=== PATIENT | female | born 2000 | race Caucasian/White ===

== ENCOUNTER 2021-11-16 10:21 | Outpatient (REF) | payer OTHER, SELFPAY ==
[2021-11-16 11:17] LABS: MANUAL DIFF FLAG NO
[2021-11-16 11:23] LABS: Basophils Percent Auto 0.8 % (0-2); Eosinophils Absolute Auto 0.2 X10*3/uL (0.0-0.4); Eosinophils Percent Auto 2.9 % (0-4); Hematocrit 35.1 % (37.0-47.0); Hemoglobin 11.6 g/dl (12.0-16.0); Imm Gran Abs Auto 0.02 X10*3/uL (0.00-0.03); Imm Gran Pct Auto 0.4 % (0.0-0.4); Lymphocytes Absolute Auto 1.6 X10*3/uL (1.2-4.9); Lymphocytes Percent Auto 31.4 % (20-40); Mean Corpuscular Volume 93.9 fL (80.0-98.0); Mean Platelet Volume 9.8 fL (9.4-12.3); Monocytes Absolute Auto 0.3 X10*3/uL (0.1-1.2); Monocytes Percent Auto 6.3 % (2-11); Neutrophils Percent Auto 58.2 % (45-73); Platelet Count 176 X10*3/uL (160-400); Red Blood Count 3.74 X10*6/uL (4.20-5.50); Red Cell Distribution Width 12.8 % (11.0-16.0); White Blood Count 5.1 X10*3/uL (4.8-10.8)
[2021-11-16 11:51] LABS: Alanine Aminotransferase 7 U/L (0-31); Alkaline Phosphatase 46 U/L (39-117); Anion Gap 10 (12-20); Aspartate Amino Transferase 10 U/L (5-31); Bilirubin Total 0.2 mg/dL (0.0-1.0); Blood Urea Nitrogen 11 mg/dL (9-16); Calcium 8.9 mg/dL (8.4-10.2); Carbon Dioxide 26 mmol/L (22-29); Chloride 106 mmol/L (96-108); Cholesterol 112 mg/dL; Estimated Glomerular Filt Rate > 60; Glucose Fasting 79 mg/dL (60-99); HDL Cholesterol 41 mg/dL; LDL Cholesterol Calculated 61 mg/dl; Sodium 138 mmol/L (135-145); Total Protein 6.7 g/dL (6.5-8.0); Triglycerides 52 mg/dL
[2021-11-16 12:06] LABS: HBS Num1 0.19 mIU/mL (0-7.99); ~Hepatitis B Surface Antibody NONREACTIVE (Nonreactive)
[2021-11-16 12:13] LABS: TSH reflex Free T4 13.41 uIU/mL (0.32-4.0)
[2021-11-16 12:56] LABS: Free T4 (Free Thyroxine) 0.89 ng/dL (0.71-1.85)
[2021-11-18 05:22] LABS: Rubella IgG Antibody 1.77 Index
[2021-11-18 17:51] LABS: TS Negative Control Passed; TS Panel A 0; TS Panel B 0; TS Positive Control Passed; TSpotTB Negative (Negative)
[2021-11-22 15:46] LABS: Vitamin D 25-OH, D2 <4 ng/mL; Vitamin D 25-OH, D3 25 ng/mL; Vitamin D 25-OH, Total 25 ng/mL (30-100)
== END 2021-11-16 10:22 | disposition home or self-care (01) ==
LOC: HO.HMGCLDS 10:21
PROVIDERS: PCP Internal Medicine; Visit Provider Internal Medicine
DX: Z00.01 Encounter for general adult medical examination with abnormal findings (principal); G89.29 Other chronic pain; M54.50 Low back pain, unspecified; Z11.1 Encounter for screening for respiratory tuberculosis; Z28.39 Other underimmunization status
CPT/HCPCS: 36415; 80053; 80061; 82306; 84439; 84443; 85025; 86481; 86706; 86735; 86762; 86765; 86787

== ENCOUNTER 2022-01-01 | Outpatient (REF) | payer OTHER, SELFPAY ==
[2022-01-04 18:06] LABS: HPV mRNA E6/E7 Not Detected (Not Detected)
== END 2022-01-01 00:01 | disposition home or self-care (01) ==
LOC: HO.LNP
PROVIDERS: Visit Provider Advanced Practice Midwife
DX: Z01.419 Encounter for gynecological examination (general) (routine) without abnormal findings (principal); Z11.51 Encounter for screening for human papillomavirus (HPV)
CPT/HCPCS: 87624; 88142

== ENCOUNTER 2022-01-02 12:59 | Outpatient (REF) | payer OTHER, SELFPAY ==
[2022-01-02 16:02] LABS: CT PCR NOT DETECTED (Not Detect.); NG PCR NOT DETECTED (Not Detect.)
[2022-01-03 11:03] LABS: BV Int Neg Control Negative (Negative); BV Int Pos Control Positive (Positive)
== END 2022-01-02 13:00 | disposition home or self-care (01) ==
LOC: HO.LAB 12:59
PROVIDERS: Visit Provider Advanced Practice Midwife
DX: Z11.3 Encounter for screening for infections with a predominantly sexual mode of transmission (principal); Z20.2 Contact with and (suspected) exposure to infections with a predominantly sexual mode of transmission
CPT/HCPCS: 87480; 87491; 87510; 87591; 87660

== ENCOUNTER → 2022-01-03 09:09 | Outpatient (BNVA) | payer OTHER, SELFPAY | PROVIDERS: PCP Internal Medicine; Visit Provider Advanced Practice Midwife | DX: Z30.42 Encounter for surveillance of injectable contraceptive (principal) | CPT/HCPCS: 96372; 99211 ==

== ENCOUNTER 2022-03-01 08:10 | Outpatient (REF) | payer OTHER, SELFPAY ==
[2022-03-01 18:15] LABS: CT PCR NOT DETECTED (Not Detect.); NG PCR NOT DETECTED (Not Detect.)
[2022-03-02 09:19] LABS: BV Int Neg Control Negative (Negative); BV Int Pos Control Positive (Positive)
== END 2022-03-01 08:11 | disposition home or self-care (01) ==
LOC: HO.LNP 08:10
PROVIDERS: Visit Provider Advanced Practice Midwife
DX: R10.2 Pelvic and perineal pain (principal); N94.10 Unspecified dyspareunia; R30.0 Dysuria; N73.9 Female pelvic inflammatory disease, unspecified; Z32.02 Encounter for pregnancy test, result negative; Z20.2 Contact with and (suspected) exposure to infections with a predominantly sexual mode of transmission
CPT/HCPCS: 81003; 81025; 87480; 87491; 87510; 87591; 87660; 96372; 99212; J0696

== ENCOUNTER → 2022-03-06 11:47 | Outpatient (BNVA) | payer OTHER, SELFPAY | PROVIDERS: PCP Internal Medicine; Visit Provider Advanced Practice Midwife | DX: N73.9 Female pelvic inflammatory disease, unspecified (principal) | CPT/HCPCS: 81025; 99212 ==

== ENCOUNTER 2022-03-09 14:06 | Outpatient (REF) | payer OTHER, SELFPAY ==
--- NOTE | ~2022-03-09 | US_ITS ---
EXAMINATION: US PELVIS CLINICAL INFORMATION: Pain COMPARISON: None TECHNIQUE: Ultrasound of the pelvis is performed using both transabdominal and transvaginal transducers along with Doppler. Transvaginal imaging is performed due to inadequate visualization transabdominally. FINDINGS: The uterus is anteverted and retroflexed and measures 8.2 x 4.8 x 5.9 cm in dimension. No focal uterine lesion is seen. Endometrial thickness is normal measuring 0.9 cm. The ovaries are normal in size. The right ovary measures 3.2 x 2 x 3.1 cm. Left ovary measures 2 6 x 2.3 x 1.9 cm. There is polycystic appearance of the ovaries with multiple small cysts or follicles. There is a small amount of fluid in the pelvis. US/US pelvic and transvaginal IMPRESSION: Normal-appearing uterus. Polycystic appearance of the ovaries with multiple small bilateral ovarian cysts or follicles follicles.
== END 2022-03-09 14:07 | disposition home or self-care (01) ==
LOC: HO.US 14:06
PROVIDERS: Visit Provider Advanced Practice Midwife
DX: R10.2 Pelvic and perineal pain (principal); N73.9 Female pelvic inflammatory disease, unspecified
CPT/HCPCS: 76830; 76856

== ENCOUNTER → 2022-03-21 09:07 | Outpatient (BNVA) | payer OTHER, SELFPAY | PROVIDERS: PCP Internal Medicine; Visit Provider Advanced Practice Midwife | DX: Z30.42 Encounter for surveillance of injectable contraceptive (principal) | CPT/HCPCS: 96372; 99211 ==

== ENCOUNTER 2022-04-04 14:04 | Outpatient (REF) | payer OTHER, SELFPAY ==
[2022-04-05 02:26] LABS: CT PCR NOT DETECTED (Not Detect.); NG PCR NOT DETECTED (Not Detect.)
[2022-04-05 09:36] LABS: BV Int Neg Control Negative (Negative); BV Int Pos Control Positive (Positive)
== END 2022-04-04 14:05 | disposition home or self-care (01) ==
LOC: HO.LNP 14:04
PROVIDERS: Visit Provider Advanced Practice Midwife
DX: Z12.4 Encounter for screening for malignant neoplasm of cervix (principal); Z11.3 Encounter for screening for infections with a predominantly sexual mode of transmission; L53.9 Erythematous condition, unspecified; B37.31 Acute candidiasis of vulva and vagina; N73.9 Female pelvic inflammatory disease, unspecified; N94.10 Unspecified dyspareunia
CPT/HCPCS: 87480; 87491; 87510; 87591; 87660; 88142; 99212

== ENCOUNTER → 2022-05-29 15:46 | Outpatient (BNVA) | payer OTHER, SELFPAY | PROVIDERS: PCP Internal Medicine; Visit Provider Advanced Practice Midwife | DX: N64.4 Mastodynia (principal); N64.89 Other specified disorders of breast | CPT/HCPCS: 99212 ==

== ENCOUNTER → 2022-05-31 10:04 | Outpatient (BNVA) | payer OTHER, SELFPAY | PROVIDERS: PCP Internal Medicine; Referring Provider Advanced Practice Midwife; Visit Provider Surgery | DX: O92.79 Other disorders of lactation (principal); N64.4 Mastodynia | CPT/HCPCS: 99202 ==

== ENCOUNTER 2022-06-07 12:06 | Outpatient (REF) | payer OTHER, SELFPAY | END 2022-06-07 12:07 | disposition home or self-care (01) | LOC: HO.LNP 12:06 | PROVIDERS: Visit Provider Advanced Practice Midwife | DX: Z13.89 Encounter for screening for other disorder (principal) ==

== ENCOUNTER 2022-06-07 13:00 | Outpatient (REF) | payer OTHER, SELFPAY ==
--- NOTE | ~2022-06-07 | US_ITS ---
EXAMINATION: US DIAGNOSTIC ULTRASOUND BREAST, LEFT CLINICAL INFORMATION: 22-year-old with fine palpable tender cord extending posterior to anterior upper outer left breast. No prior breast imaging. COMPARISON: None. TECHNIQUE: Ultrasound left breast is targeted to the area of clinical concern upper outer quadrant. Patient is able to point to the area at time of imaging. Grayscale imaging and color Doppler are performed without and with harmonics. FINDINGS: There is no focal suspicious finding. There is no cystic or solid mass, architectural abnormality, duct ectasia, or edema in the soft tissue planes. There is no thrombosed vessel demonstrated. Results are discussed with the patient at time of visit. US/US breast LT limited IMPRESSION: Unremarkable left breast ultrasound. ASSESSMENT: BI-RADS 1: Negative RECOMMENDATION: Patient should be managed based on the clinical impression. If clinically indicated, further evaluation may be considered with surgical consult. Decision to proceed with biopsy should be based on clinical grounds and degree of clinical concern.
[2022-06-08 10:47] LABS: CT PCR NOT DETECTED (Not Detect.)
[2022-06-08 10:48] LABS: NG PCR NOT DETECTED (Not Detect.)
[2022-06-08 14:08] LABS: BV Int Neg Control Negative (Negative); BV Int Pos Control Positive (Positive)
== END 2022-06-07 13:01 | disposition home or self-care (01) ==
LOC: HO.MAMMO 13:00
PROVIDERS: Visit Provider Advanced Practice Midwife
DX: N64.4 Mastodynia (principal); R10.2 Pelvic and perineal pain; N73.9 Female pelvic inflammatory disease, unspecified
CPT/HCPCS: 0353U; 76642; 87480; 87510; 87660; 99212

== ENCOUNTER 2022-06-09 11:31 | Emergency (ER) | payer OTHER, SELFPAY ==
--- NOTE | ~2022-06-09 | US_ITS ---
EXAMINATION: US ABDOMEN LIMITED CLINICAL INFORMATION: Right upper quadrant abdominal pain. COMPARISON: None TECHNIQUE: Real-time imaging of the right upper quadrant abdominal viscera. FINDINGS: PANCREAS: Normal. LIVER: Normal. The liver is normal in size. The liver contour is normal. Parenchymal echogenicity is normal. No focal hepatic lesion. There is no intrahepatic biliary duct dilatation seen. GALLBLADDER: The gallbladder is physiologically distended without evidence of stones, sludge, polyps, wall thickening or pericholecystic fluid. Technologist reports a positive sonographic Gaffney's sign. COMMON BILE DUCT: Normal in caliber measuring 0.2 cm in diameter. RIGHT KIDNEY: Normal. No hydronephrosis. No renal calculi or focal parenchymal lesions. The kidney measures 9.6 cm in maximum dimension. FREE FLUID: None. US/US abdomen limited IMPRESSION: 1. Unremarkable sonographic imaging of the right upper abdomen. 2. The technologist reports a positive sonographic Gaffney's sign however, the gallbladder is normal in appearance without gallstones, gallbladder wall thickening or pericholecystic fluid. If there is a high clinical suspicion for acute cholecystitis, further evaluation can be obtained with nuclear medicine imaging.
--- NOTE | 2022-06-09 11:32 | ED.GENADULT ---
HPI - General Adult General Chief complaint: Abdominal Pain <KATY Dan - Last Filed: 06/09/22 11:35> Stated complaint: abd pain <KATY Dan Last Filed: 06/09/22 11:35> Time Seen by Provider: 06/09/22 12:35 <KATY Dan Last Filed: 06/09/22 11:35> Source: patient <KATY Hilario - Last Filed: 06/09/22 18:36> Mode of arrival: ambulatory <KATY Hilario - Last Filed: 06/09/22 18:36> History of Present Illness HPI narrative: 22-year-old female with past medical history of asthma, hypothyroid, presenting to the ED complaining of right-sided abdominal pain x6 months. Admits was recently seen and treated by her OBGYN and instructed to come to the emergency department for further eval. Reports nausea and vomiting weeks ago which has resolved, now with diarrhea. Denies fever, chills, dysuria/hematuria, suspicious food intake, recent travel <KATY Hilario - Last Filed: 06/09/22 18:36> Onset (ago): month(s) <KATY Hilario Last Filed: 06/09/22 18:36> Related Data Home medications: Previous Rx's Medication Instructions Recorded albuterol sulfate 90 mcg/actuation 1 inh inhalation QID PRN shortness 11/15/21 aerosol inhaler (ProAir HFA) of breath or wheezing 30 days #18 grams levothyroxine 88 mcg tablet 88 mcg PO DAILY 90 days #90 tabs 12/06/21 Symbicort 160 mcg-4.5 1 inh inhalation DAILY 30 days 12/18/21 mcg/actuation HFA aerosol inhaler #10.2 grams (budesonide-formoterol) medroxyprogesterone 150 mg/mL 150 mg IM Q12W #1 mL 01/01/22 intramuscular suspension (Depo-Provera) <KATY Dan Last Filed: 06/09/22 11:35> Allergies/adverse reactions: Allergies Allergy/AdvReac Type Severity Reaction Status Date / Time doxycycline Allergy Unknown Nausea and Verified 06/07/22 11:07 Vomiting <KATY Dan - Last Filed: 06/09/22 11:35> Review of Systems Review of Systems: Constitutional: No Fever, No Chills, No Fatigue, No Malaise ENT/Mouth: No Ear Pain, No Nasal Congestion, No Sinus Pain, No Hoarseness, No sore throat, No Rhinorrhea, No Swallowing Difficulty Eyes: No Eye Pain, No Swelling, No Discharge, No Vision Changes Cardiovascular: No Chest Pain, No SOB, No Edema, No Palpitations Respiratory: No Cough, No Sputum, No Wheezing, No Dyspnea Gastrointestinal: + Nausea (resolved), + Vomiting (resolved), + Diarrhea, No Constipation, + Abdominal pain Genitourinary: No irregular bleeding, No Dysuria, No Urinary Frequency, No Hematuria, No Urgency, No Flank Pain Musculoskeletal: No joint pain, No Myalgias, No Joint Swelling Skin: No Skin Lesions, No rash Neuro: No Weakness, No Dizziness, No Headache <KATY Hilario - Last Filed: 06/09/22 18:36> Yes all other systems are reviewed and are negative <KATY Hilario - Last Filed: 06/09/22 18:36> Constitutional: Constitutional: Reports as per HPI <KATY Hilario - Last Filed: 06/09/22 18:36> [facility] Past Medical History Attestation statement: The following information was validated with the patient. <KATY Hilario - Last Filed: 06/09/22 18:36> Medical History: Medical History Asthma Hypothyroid <KATY Dan - Last Filed: 06/09/22 11:35> Surgical History: Surgical History S/P removal of thyroid nodule <KATY Dan - Last Filed: 06/09/22 11:35> Social History Social History: Social History Housing: House Alcohol intake: never Patient Tobacco Use Status: Never used Tobacco e-Cigarette/Vaping Use: Never Used Substance Use Type: Marijuana Advance Directives: No Advance Directives Information Provided: No service: No Current occupational status: unemployed Sexual orientation: Straight/Heterosexual Gender identity: Female Cognitive needs: No Hearing needs: No Vision needs: Yes <KATY Dan Last Filed: 06/09/22 11:35> Physical Exam ED Vital Signs: Vital Signs - 24 hr 06/09/22 11:33 Temperature 98.1 F Pulse Rate 79 Respiratory Rate 18 Blood Pressure 104/67 Pulse Oximetry 100 Oxygen Delivery Method Room Air BMI result Body Mass Index 18.8 <KATY Dan - Last Filed: 06/09/22 11:35> Vital Signs - 24 hr 06/09/22 11:33 Temperature 98.1 F Pulse Rate 79 Respiratory Rate 18 Blood Pressure 104/67 Pulse Oximetry 100 Oxygen Delivery Method Room Air BMI result Body Mass Index 18.8 <KATY Hilario - Last Filed: 06/09/22 18:36> Const General: cooperative, healthy appearing and no acute distress <KATY Hilario Last Filed: 06/09/22 18:36> Orientation/consciousness: patient oriented x3 <KATY Hilario - Last Filed: 06/09/22 18:36> Limitations: no limitations <KATY Hilario Last Filed: 06/09/22 18:36> HENMT Head: Yes normal to inspection and Yes atraumatic <KATY Hilario - Last Filed: 06/09/22 18:36> Ears: hearing grossly normal bilaterally <KATY Hilario - Last Filed: 06/09/22 18:36> General nose exam: Normal external nose present <KATY Hilario Last Filed: 06/09/22 18:36> Face and sinus: Yes normal facial exam <KATY Hilario - Last Filed: 06/09/22 18:36> Eyes General: appearance normal, both eyes and all related structures <KATY Hilario Last Filed: 06/09/22 18:36> EOM: EOMs intact bilaterally <KATY Hilario - Last Filed: 06/09/22 18:36> Neck Neck: Yes normal visual inspection and Yes no meningeal signs <KATY Hilario - Last Filed: 06/09/22 18:36> Resp Effort & Inspection: normal respiratory effort and no respiratory distress <KATY Hilario Last Filed: 06/09/22 18:36> Auscultation: clear to auscultation bilaterally <KATY Hilario - Last Filed: 06/09/22 18:36> Cardio Rate: regular rate <KATY Hilario - Last Filed: 06/09/22 18:36> Heart sounds: S1 normal heart sound present and S2 normal heart sound present <KATY Hilario Last Filed: 06/09/22 18:36> GI Inspection: Yes normal to inspection <KATY Hilario Last Filed: 06/09/22 18:36> Palpation (GI): Soft to palpation, Tenderness to palpation present (GI) in the RUQ; with no rebound tenderness, no guarding and not rigid <KATY Hilario - Last Filed: 06/09/22 18:36> General: Yes no CVA tenderness <KATY Hilario - Last Filed: 06/09/22 18:36> Back/Spine/Pelvis Back: no CVA tenderness <KATY Hilario - Last Filed: 06/09/22 18:36> Skin Rashes: no rashes <KATY Hilario Last Filed: 06/09/22 18:36> Wounds: no wounds <KATY Hilario - Last Filed: 06/09/22 18:36> Neuro General: patient oriented x3, tone normal and no meningeal signs <KATY Hilario Last Filed: 06/09/22 18:36> Gait exam (Neuro): Normal gait present <KATY Hilario Last Filed: 06/09/22 18:36> Extrem General: Yes normal to inspection <KATY Hilario Last Filed: 06/09/22 18:36> Course Course Course Narrative: RME performed by iJe Delgadillo PA-C. Patient is a 22 year old female presenting to the emergency department with abdominal pain. Patient has been having this pain for 6 months and has been evaluated by her OBGYN who informed her it is not her ovaries. Labs ordered. Patient placed back in waiting room pending results and room availability. <KATY Dan - Last Filed: 06/09/22 11:35> RME performed by Jie Delgadillo PA-C. Patient is a 22 year old female presenting to the emergency department with abdominal pain. Patient has been having this pain for 6 months and has been evaluated by her OBGYN who informed her it is not her ovaries. Labs ordered. Patient placed back in waiting room pending results and room availability. -1430--labs unremarkable. HCG negative -UA contaminated, will hold on antibiotic treatment until culture results US abdomen limited IMPRESSION: 1.? Unremarkable sonographic imaging of the right upper abdomen. 2.? The technologist reports a positive sonographic Gaffney's sign however, the gallbladder is normal in appearance without gallstones, gallbladder wall thickening or pericholecystic fluid. If there is a high clinical suspicion for acute cholecystitis, further evaluation can be obtained with nuclear medicine imaging. >> due to patient's length of symptoms, can obtain outpatient further studies/evaluation. Patient is nontoxic appearing, lying on stretcher on cellphone, had lengthy discussion with recommended GI follow-up for further studies. Results discussed with patient including worrisome signs and symptoms and strict return precautions, and when to return to the emergency department. They verbalized understanding and feel safe for discharge at this time. <KATY Hilario Last Filed: 06/09/22 18:36> Medical Decision Making Medical Decision Making MDM Narrative: 22-year-old female with past medical history of asthma, hypothyroid, presenting to the ED complaining of right-sided abdominal pain x6 months. On exam vital signs stable, NAD/nontoxic appearing, abdomen soft with RUQ tenderness, no rebound or guarding, no CVA tenderness. Concern for cholecystitis/lithiasis or pancreatitis vs biliary colic. Lower suspicion for pelvic etiology or appendicitis/diverticulitis without tenderness on exam. Low concern for ovarian torsion. Plan: Labs, UA, , abdomen ultrasound Please refer to course for remaining clinical decision making, interpretation of labs/imaging results, and discussions with consultants and/or family members. <KATY Hilario Last Filed: 06/09/22 18:36> Differential Diagnosis Differential Diagnoses: The differential diagnosis associated with the presentation includes <KATY Hilario Last Filed: 06/09/22 18:36> As above <KATY Hilario - Last Filed: 06/09/22 18:36> Lab Data MDM Lab Attestation statement: I reviewed the patient's lab results. <KATY Hilario - Last Filed: 06/09/22 18:36> Result Diagrams: 06/09/22 11:46 06/09/22 11:46 <KATY Dan - Last Filed: 06/09/22 11:35> Labs: Lab Results 06/09/22 06/09/22 06/09/22 Range/Units 11:45 11:46 11:46 WBC 5.1 (4.8-10.8) X10*3/uL RBC 3.73 L (4.20-5.50) X10*6/uL Hgb 11.9 L (12.0-16.0) g/dl Hct 36.3 L (37.0-47.0) % MCV 97.3 (80.0-98.0) fL MCH 31.9 (27.0-33.0) pg MCHC 32.8 (31.0-35.0) g/dl RDW 13.2 (11.0-16.0) % Plt Count 159 L (160-400) X10*3/uL MPV 9.4 (9.4-12.3) fL Immature Gran % (Auto) 0.2 (0.0-0.4) % Neut % (Auto) 52.6 (45-73) % Lymph % (Auto) 40.9 H (20-40) % [place] % (Auto) 4.3 (2-11) % Eos % (Auto) 1.4 (0-4) % Baso % (Auto) 0.6 (0-2) % Lymph # (Auto) 2.1 (1.2-4.9) X10*3/uL [place] # (Auto) 0.2 (0.1-1.2) X10*3/uL Eos # (Auto) 0.1 (0.0-0.4) X10*3/uL Baso # (Auto) 0.0 (0.0-0.2) X10*3/uL Abs Immat Gran (auto) 0.01 (0.00-0.03) X10*3/uL Absolute Neuts (auto) 2.7 (2.0-8.3) x10*3/uL Absolute Nucleated RBC 0.000 (0.0-0.012) X10*3/uL Nucleated RBC % (auto) 0.0 (0.0-0.2) /100WBC Sodium 141 (135-145) mmol/L Potassium 4.1 (3.3-5.1) mmol/L Chloride 113 H (96-108) mmol/L Carbon Dioxide 22 (22-29) mmol/L Anion Gap 10 L (12-20) BUN 11 (9-16) mg/dL Creatinine 0.90 (0.5-1.4) mg/dL Estim Creat Clear Calc 65.3 Estimated GFR > 60 Random Glucose 86 (60-115) mg/dL Calcium 8.7 (8.4-10.2) mg/dL Magnesium 2.3 (1.6-2.6) mg/dL Total Bilirubin 0.6 (0.0-1.0) mg/dL AST 11 (5-31) U/L ALT 6 (0-31) U/L Alkaline Phosphatase 36 L (39-117) U/L Total Protein 7.0 (6.5-8.0) g/dL Albumin 4.3 (3.5-5.0) g/dL Lipase 25 (8-78) U/L Beta HCG, Quant < 2 mIU/mL Urine Color Yellow Urine Appearance Clear Urine pH 8.5 (5.0-9.0) Ur Specific [place] 1.025 (1.005-1.025) Urine Protein Trace (Neg-Trace) mg/dL Urine Glucose (UA) Negative (Negative) mg/dL Urine Ketones Negative (Negative) mg/dL Urine Blood Negative (Negative) Urine Nitrite Negative (Negative) Ur Leukocyte Esterase Small (1+) H (Negative) Urine RBC 0-2 (0-2) /HPF Urine WBC 6-10 H (0-5) /HPF Ur Squamous Epith Cells 11-20 (0-2) /HPF Urine Bacteria Trace (None Seen) Hyaline Casts 0-2 (0-2) /LPF <KATY Dan - Last Filed: 06/09/22 11:35> Lab Results 06/09/22 06/09/2206/09/23 Range/Units 11:45 11:46 11:46 WBC 5.1 (4.8-10.8) X10*3/uL RBC 3.73 L (4.20-5.50) X10*6/uL Hgb 11.9 L (12.0-16.0) g/dl Hct 36.3 L (37.0-47.0) % MCV 97.3 (80.0-98.0) fL MCH 31.9 (27.0-33.0) pg MCHC 32.8 (31.0-35.0) g/dl RDW 13.2 (11.0-16.0) % Plt Count 159 L (160-400) X10*3/uL MPV 9.4 (9.4-12.3) fL Immature Gran % (Auto) 0.2 (0.0-0.4) % Neut % (Auto) 52.6 (45-73) % Lymph % (Auto) 40.9 H (20-40) % [place] % (Auto) 4.3 (2-11) % Eos % (Auto) 1.4 (0-4) % Baso % (Auto) 0.6 (0-2) % Lymph # (Auto) 2.1 (1.2-4.9) X10*3/uL [place] # (Auto) 0.2 (0.1-1.2) X10*3/uL Eos # (Auto) 0.1 (0.0-0.4) X10*3/uL Baso # (Auto) 0.0 (0.0-0.2) X10*3/uL Abs Immat Gran (auto) 0.01 (0.00-0.03) X10*3/uL Absolute Neuts (auto) 2.7 (2.0-8.3) x10*3/uL Absolute Nucleated RBC 0.000 (0.0-0.012) X10*3/uL Nucleated RBC % (auto) 0.0 (0.0-0.2) /100WBC Sodium 141 (135-145) mmol/L Potassium 4.1 (3.3-5.1) mmol/L Chloride 113 H (96-108) mmol/L Carbon Dioxide 22 (22-29) mmol/L Anion Gap 10 L (12-20) BUN 11 (9-16) mg/dL Creatinine 0.90 (0.5-1.4) mg/dL Estim Creat Clear Calc 65.3 Estimated GFR > 60 Random Glucose 86 (60-115) mg/dL Calcium 8.7 (8.4-10.2) mg/dL Magnesium 2.3 (1.6-2.6) mg/dL Total Bilirubin 0.6 (0.0-1.0) mg/dL AST 11 (5-31) U/L ALT 6 (0-31) U/L Alkaline Phosphatase 36 L (39-117) U/L Total Protein 7.0 (6.5-8.0) g/dL Albumin 4.3 (3.5-5.0) g/dL Lipase 25 (8-78) U/L Beta HCG, Quant < 2 mIU/mL Urine Color Yellow Urine Appearance Clear Urine pH 8.5 (5.0-9.0) Ur Specific [place] 1.025 (1.005-1.025) Urine Protein Trace (Neg-Trace) mg/dL Urine Glucose (UA) Negative (Negative) mg/dL Urine Ketones Negative (Negative) mg/dL Urine Blood Negative (Negative) Urine Nitrite Negative (Negative) Ur Leukocyte Esterase Small (1+) H (Negative) Urine RBC 0-2 (0-2) /HPF Urine WBC 6-10 H (0-5) /HPF Ur Squamous Epith Cells 11-20 (0-2) /HPF Urine Bacteria Trace (None Seen) Hyaline Casts 0-2 (0-2) /LPF <KATY Hilario - Last Filed: 06/09/22 18:36> Independent Interpretation I performed an independent interpretation of an: Ultrasound <KATY Hilario - Last Filed: 06/09/22 18:36> Radiology Impression Discussion of test interpretation with radiology: I have reviewed the radiologist's reading. <KATY Hilario Last Filed: 06/09/22 18:36> External Record Review External record reviewed: Office record, Outpatient record and Prior outpatient labs <KATY Hilario Last Filed: 06/09/22 18:36> Prescription Management I considered prescription management with: Pain Medication and Antibiotic <KATY Hilario - Last Filed: 06/09/22 18:36> Discharge Plan Discharge Clinical Impression: Abdominal pain <KATY Dan - Last Filed: 06/09/22 11:35> Patient Disposition: Home, Self-Care <KATY Dan - Last Filed: 06/09/22 11:35> Instructions: Abdominal Pain (ED) <KATY Dan - Last Filed: 06/09/22 11:35> Additional Instructions: Your blood work was reassuring parrot your ultrasound was unremarkable however the technologist did report pain at your gallbladder. It is recommended you have further studies outpatient Please have close follow-up with GI, call on Saturday to make an appointment. If symptoms persist or worsen, you have fever, you are unable to eat or drink return to the emergency department Practice of bland diet <KATY Dan - Last Filed: 06/09/22 11:35> Prescriptions: No Action budesonide-formoterol [Symbicort] 160-4.5 mcg/actuation HFA aerosol inhaler 1 inh inhalation DAILY 30 Days Qty: 10.2 0RF albuterol sulfate [ProAir HFA] 90 mcg/actuation HFA aerosol inhaler 1 inh inhalation QID PRN (Reason: shortness of breath or wheezing) 30 Days Qty: 18 0RF levothyroxine 88 mcg tablet 88 mcg PO DAILY 90 Days Qty: 90 0RF medroxyprogesterone [Depo-Provera] 150 mg/mL suspension 150 mg IM Q12W Qty: 1 5RF <KATY Dan - Last Filed: 06/09/22 11:35> Referrals: [facility]Provider Group] - 1 week <KATY Dan - Last Filed: 06/09/22 11:35> Interventions: ED Discharge Assessment Last Done: 06/09/22 14:46 <KATY Dan Last Filed: 06/09/22 11:35> Discharge Date/Time: 06/09/22 14:49 <KATY Dan Last Filed: 06/09/22 11:35>
[2022-06-09 11:33] VITALS: BP 104/67; PULSE 79; RESP 18; TEMP 36.7; O2SAT 100; BMI 18.8
[2022-06-09 11:51] LABS: MANUAL DIFF FLAG NO
[2022-06-09 11:52] LABS: Basophils Percent Auto 0.6 % (0-2); Eosinophils Absolute Auto 0.1 X10*3/uL (0.0-0.4); Eosinophils Percent Auto 1.4 % (0-4); Hematocrit 36.3 % (37.0-47.0); Hemoglobin 11.9 g/dl (12.0-16.0); Imm Gran Abs Auto 0.01 X10*3/uL (0.00-0.03); Imm Gran Pct Auto 0.2 % (0.0-0.4); Lymphocytes Absolute Auto 2.1 X10*3/uL (1.2-4.9); Lymphocytes Percent Auto 40.9 % (20-40); Mean Corpuscular HGB Conc 32.8 g/dl (31.0-35.0); Mean Corpuscular Hemoglobin 31.9 pg (27.0-33.0); Mean Corpuscular Volume 97.3 fL (80.0-98.0); Mean Platelet Volume 9.4 fL (9.4-12.3); Monocytes Absolute Auto 0.2 X10*3/uL (0.1-1.2); Monocytes Percent Auto 4.3 % (2-11); Neutrophils Absolute Auto 2.7 x10*3/uL (2.0-8.3); Neutrophils Percent Auto 52.6 % (45-73); Platelet Count 159 X10*3/uL (160-400); Red Blood Count 3.73 X10*6/uL (4.20-5.50); Red Cell Distribution Width 13.2 % (11.0-16.0); White Blood Count 5.1 X10*3/uL (4.8-10.8)
[2022-06-09 11:57] LABS: Appearance Urine Clear; Color Urine Yellow; Glucose Urine UA Negative (Negative); Leukocyte Esterase Urine Small (1+) (Negative); Nitrite Urine Negative (Negative); PH 8.5 (5.0-9.0); Specific Gravity - Urine 1.025 (1.005-1.025); UMIC TRIGGER UACC YES; Urine Blood Negative (Negative); Urine Ketones Negative (Negative); Urine Protein Trace mg/dL (Neg-Trace)
[2022-06-09 12:00] LABS: Bacteria Urine Trace (None Seen); Hyaline Casts Urine 0-2 /LPF (0-2); RBC Urine 0-2 /HPF (0-2); UACC Culture Trigger YES
[2022-06-09 12:19] LABS: Alanine Aminotransferase 6 U/L (0-31); Albumin Level 4.3 g/dL (3.5-5.0); Alkaline Phosphatase 36 U/L (39-117); Anion Gap 10 (12-20); Aspartate Amino Transferase 11 U/L (5-31); Bilirubin Total 0.6 mg/dL (0.0-1.0); Blood Urea Nitrogen 11 mg/dL (9-16); Calcium 8.7 mg/dL (8.4-10.2); Carbon Dioxide 22 mmol/L (22-29); Chloride 113 mmol/L (96-108); Creatinine Clr Calc Pharmacy 65.3; Estimated Glomerular Filt Rate > 60; Glucose Random 86 mg/dL (60-115); Magnesium 2.3 mg/dL (1.6-2.6); Potassium 4.1 mmol/L (3.3-5.1); Sodium 141 mmol/L (135-145)
[2022-06-09 12:26] LABS: HCG Quantitative < 2 mIU/mL
[2022-06-09 13:22] LABS: Lipase 25 U/L (8-78)
== END 2022-06-09 14:49 | disposition home or self-care (01) ==
PROVIDERS: Physician Assistant; Physician Assistant Medical; Emergency Provider Emergency Medicine Emergency Medical Services; PCP Internal Medicine
DX: R10.9 Unspecified abdominal pain (principal)
CPT/HCPCS: 36415; 76705; 80053; 81001; 83690; 83735; 84702; 85025; 87086; 99282; 99284

== ENCOUNTER 2022-06-19 11:38 | Outpatient (REF) | payer OTHER, SELFPAY ==
[2022-06-19 13:13] LABS: Hematocrit 36.5 % (37.0-47.0); Mean Corpuscular HGB Conc 32.9 g/dl (31.0-35.0); Mean Corpuscular Hemoglobin 32.3 pg (27.0-33.0); Mean Corpuscular Volume 98.1 fL (80.0-98.0); Mean Platelet Volume 9.6 fL (9.4-12.3); Platelet Count 151 X10*3/uL (160-400); Red Blood Count 3.72 X10*6/uL (4.20-5.50); Red Cell Distribution Width 12.9 % (11.0-16.0); White Blood Count 4.7 X10*3/uL (4.8-10.8)
[2022-06-19 13:23] LABS: Appearance Urine Clear; Color Urine Yellow; Glucose Urine UA Negative (Negative); Leukocyte Esterase Urine Trace (Negative); Nitrite Urine Negative (Negative); PH 6.5 (5.0-9.0); Specific Gravity - Urine 1.025 (1.005-1.025); UMIC TRIGGER UACC YES; Urine Blood Negative (Negative); Urine Ketones Negative (Negative); Urine Protein Negative (Neg-Trace)
[2022-06-19 13:29] LABS: Bacteria Urine None Seen (None Seen); Hyaline Casts Urine 0-2 /LPF (0-2); RBC Urine 0-2 /HPF (0-2); UACC Culture Trigger YES
[2022-06-19 14:34] LABS: C Reactive Protein < 0.04 mg/dL (< or = 0.50)
[2022-06-19 14:52] LABS: TSH reflex Free T4 30.03 uIU/mL (0.32-4.0); Vitamin D 25-OH Total 11.4 ng/mL (>30)
[2022-06-19 15:02] LABS: Folate 10.3 ng/mL (> or = 4.0); Vitamin B12 421 pg/mL (200-900)
[2022-06-19 15:25] LABS: Free T4 (Free Thyroxine) 1.02 ng/dL (0.71-1.85)
[2022-06-21 20:54] LABS: Transglutaminase Ab IgG <1.0 U/mL; Transglutaminase IgA <1.0 U/mL
== END 2022-06-19 11:39 | disposition home or self-care (01) ==
LOC: HO.LAB 11:38
PROVIDERS: Advanced Practice Midwife; PCP Internal Medicine; Visit Provider Nurse Practitioner Family
DX: R10.30 Lower abdominal pain, unspecified (principal); R10.11 Right upper quadrant pain; R30.0 Dysuria; R19.7 Diarrhea, unspecified; N64.4 Mastodynia
CPT/HCPCS: 36415; 81001; 82306; 82607; 82746; 84439; 84443; 85027; 86140; 86364; 87086; 99202

== ENCOUNTER → 2022-06-21 10:37 | Outpatient (BNVA) | payer OTHER, SELFPAY | PROVIDERS: PCP Internal Medicine; Referring Provider Internal Medicine; Visit Provider Surgery | DX: N64.4 Mastodynia (principal) | CPT/HCPCS: 99212 ==

== ENCOUNTER → 2022-06-22 11:11 | Outpatient (BNVA) | payer OTHER, SELFPAY | PROVIDERS: PCP Internal Medicine; Visit Provider Advanced Practice Midwife | DX: Z30.42 Encounter for surveillance of injectable contraceptive (principal); O92.79 Other disorders of lactation; N64.4 Mastodynia; R10.30 Lower abdominal pain, unspecified; R19.7 Diarrhea, unspecified | CPT/HCPCS: 81025 ==

== ENCOUNTER 2022-06-22 12:01 | Outpatient (REF) | payer OTHER, SELFPAY ==
[2022-06-22 13:18] LABS: Leukocytes Stool Qualitative NEGATIVE (NEGATIVE)
[2022-06-22 14:48] LABS: Adenovirus F 40/41 Not Detected (Not Detect.); Astrovirus Not Detected (Not Detect.); Campylobacter Not Detected (Not Detect.); Cryptosporidium Not Detected (Not Detect.); Cyclospora cayetanensis Not Detected (Not Detect.); E. coli EAEC Not Detected (Not Detect.); E. coli EPEC Not Detected (Not Detect.); E. coli ETEC Not Detected (Not Detect.); E. coli STEC Not Detected (Not Detect.); Entamoeba histolytica Not Detected (Not Detect.); Giardia lamblia Not Detected (Not Detect.); Norovirus GI/GII Not Detected (Not Detect.); Plesiomonas shigelloides Not Detected (Not Detect.); Rotavirus A Not Detected (Not Detect.); Salmonella Not Detected (Not Detect.); Sapovirus Not Detected (Not Detect.); Shigella sp./EIEC Not Detected (Not Detect.); Vibrio Not Detected (Not Detect.); Vibrio Cholerae Not Detected (Not Detect.); Yersinia enterocolitica Not Detected (Not Detect.)
[2022-07-03 01:38] LABS: Pancreatic Elastase-1 >500 mcg/g
== END 2022-06-22 12:02 | disposition home or self-care (01) ==
LOC: HO.LNP 12:01
PROVIDERS: Visit Provider Nurse Practitioner Family
DX: R10.30 Lower abdominal pain, unspecified (principal); N64.4 Mastodynia; R19.7 Diarrhea, unspecified; Z30.42 Encounter for surveillance of injectable contraceptive; Z79.899 Other long term (current) drug therapy
CPT/HCPCS: 82656; 87209; 87507; 89055; 96372; 99212

== ENCOUNTER → 2022-07-09 11:01 | Outpatient (REF) | payer OTHER, SELFPAY ==
--- NOTE | ~2022-07-09 | NM_ITS ---
EXAMINATION: BILIARY TRACT IMAGING STUDY WITH CCK CLINICAL INFORMATION: Right upper quadrant abdominal pain. COMPARISON: Right upper quadrant abdominal ultrasound done on 06/09/2022.. TECHNIQUE: Serial gamma scintillation camera images were obtained over the abdomen for a total observation period of 60 minutes following the intravenous administration of 5.0 mCi Tc-99m mebrofenin. FINDINGS: There is good concentration of activity in the liver by 5 minutes post injection. Biliary activity is visualized by 10 minutes. The gallbladder is well visualized by 25 minutes. Small bowel is well visualized by 20 minutes. At 60 minutes post radiopharmaceutical injection, a 30-minute infusion of 0.9 micrograms Sincalide was then begun and an additional 40 minutes of images were obtained. There is minimal/no emptying of the gallbladder. By the end of the study there is good clearance of activity from the liver and visualization of diffuse small bowel activity. The calculated gallbladder ejection fraction is 10% (normal gallbladder ejection fraction is greater than 35%). NM/NM hepatobiliary w pharm IMPRESSION: Visualization of the gallbladder is evidence of a patent cystic duct and strong evidence against the diagnosis of acute cholecystitis. The common bile duct is patent. Gallbladder emptying and ejection fraction are abnormal. Liver function appears normal.
== END ==
LOC: HO.NUCMED 11:01
PROVIDERS: PCP Internal Medicine; Visit Provider Nurse Practitioner Family
DX: R10.11 Right upper quadrant pain (principal)
CPT/HCPCS: 78227; A9537; J2805

== ENCOUNTER → 2022-07-18 10:06 | Outpatient (BNVA) | payer OTHER, SELFPAY | PROVIDERS: PCP Internal Medicine; Visit Provider Physician Assistant | DX: S39.012A Strain of muscle, fascia and tendon of lower back, initial encounter (principal); X50.0XXA Overexertion from strenuous movement or load, initial encounter | CPT/HCPCS: 99203 ==

== ENCOUNTER → 2022-07-24 10:50 | Outpatient (BNVA) | payer OTHER, SELFPAY | PROVIDERS: PCP Internal Medicine; Visit Provider Physician Assistant Medical | DX: S39.012A Strain of muscle, fascia and tendon of lower back, initial encounter (principal); X50.0XXA Overexertion from strenuous movement or load, initial encounter | CPT/HCPCS: 99213 ==

== ENCOUNTER → 2022-08-07 12:55 | Outpatient (BNVA) | payer OTHER, SELFPAY | PROVIDERS: PCP Internal Medicine; Visit Provider Physician Assistant Medical | DX: S39.012D Strain of muscle, fascia and tendon of lower back, subsequent encounter (principal); X58.XXXD Exposure to other specified factors, subsequent encounter | CPT/HCPCS: 99213 ==

== ENCOUNTER → 2022-08-21 13:28 | Outpatient (BNVA) | payer OTHER, SELFPAY | PROVIDERS: PCP Internal Medicine; Visit Provider Physician Assistant Medical | DX: M54.9 Dorsalgia, unspecified (principal) | CPT/HCPCS: 99213 ==

== ENCOUNTER 2022-08-29 14:00 | Outpatient (RCR) | payer OTHER, MEDICAID, SELFPAY ==
--- NOTE | 2022-08-07 10:33 | MHC.PT.EP ---
[facility] [place] Office [place] Office [place] Office [address] [phone] F: [phone] F: [phone] F: [phone] F: [phone] Physical Therapy Plan of Care Date of Evaluation: Date of Surgery: Diagnosis: back injury Assessment: Patient is a 22 y.o. female who is referred to PT by KATY Zamarripa with Dx of back injury. PT diagnosis is cervical pain and strain, thoracic pain and strain, lumbar pain and strain. Patient is experiencing L cervical radiculopathy. Patient presents in a lot of acute pain this session. Patient impairments include acute pain, labored transfers, limited ROM, weakness, antalgic gait. Patient current functional limitations are working, cleaning home, laying in bed, sleeping, driving, caring for kids, cooking, standing to shower. Patient will benefit from skilled PT to address aforementioned impairments and functional limitations to meet established goals. Frequency and Duration: The patient will be seen 3x/week for 4 weeks Short Term Goals: 2 weeks Patient demonstrates consistency and independence with HEP to self manage symptoms. Patient presents with reduction of pain to 5/10 with PT interventions and modalities. 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 Patient presents with increased lumbar spine flexion 80 degrees to be able to perform all transfers without difficulty. Patient presents with increased shoulder flexion 5/5 to be able to perform patient transfers. Treatment Plan: Modalities to reduce pain, spasms and effusion. Manual therapy to restore motion and function. Therapeutic exercise to improve strength and flexibility. Neuromuscular re-education for posture and balance. Therapeutic activities to return to functional activities of daily living. Electronically signed by: Chintan Acosta, PT, DPT Please sign and return to therapist. Thank you for your referral.
--- NOTE | 2022-10-16 14:50 | MHC.PT.DC ---
[facility] [place] Office [place] Office [place] Office [address] [phone] F: [phone] F: [phone] F: [phone] F: [phone] Physical Therapy Discharge Report Diagnosis: back injury (MD Dx) cervical pain and strain, thoracic pain and strain, lumbar pain and strain. ? L cervical radiculopathy. (PT Dx) Date of Surgery: Date of Evaluation: 08/06/22 Date of Discharge: 10/16/22 Treatments to Date: 6 Cancellations to Date: 5 No Shows to Date: 2 Discharge Status: Visit Non-compliance Discharge Summary: Patient ceased attending PT on her own accord and is discharged for visit non-compliance. Electronically signed by: Chintan cAosta, PT, DPT Please sign and return to therapist. Thank you for your referral.
== END 2022-10-16 14:50 | disposition home or self-care (01) ==
LOC: HO.PT 14:00
PROVIDERS: PCP Internal Medicine; Visit Provider Physician Assistant Medical
DX: S29.9XXD Unspecified injury of thorax, subsequent encounter (principal); S39.92XD Unspecified injury of lower back, subsequent encounter
CPT/HCPCS: 97014; 97110; 97140; 97161; 97530

== ENCOUNTER → 2022-09-19 13:29 | Outpatient (BNVA) | payer OTHER, SELFPAY | PROVIDERS: PCP Internal Medicine; Visit Provider Advanced Practice Midwife | DX: Z30.42 Encounter for surveillance of injectable contraceptive (principal) | CPT/HCPCS: 96372; 99211 ==

== ENCOUNTER → 2022-09-19 14:09 | Outpatient (BNVA) | payer OTHER, SELFPAY | PROVIDERS: PCP Internal Medicine; Visit Provider Physician Assistant Medical | DX: S39.012D Strain of muscle, fascia and tendon of lower back, subsequent encounter (principal); X50.0XXD Overexertion from strenuous movement or load, subsequent encounter | CPT/HCPCS: 99213 ==

== ENCOUNTER 2022-12-11 12:37 | Outpatient (AMB) | payer OTHER, SELFPAY ==
[2022-12-11 13:01] VITALS: BMI 19.4
--- NOTE | 2022-12-11 13:01 | AM.OFFVISNUR ---
Intake Vital Signs 12/11/22 13:01 Height 4 ft 11 in Weight 43.545 kg BMI 19.4 Intake Visit Reasons: DEPO Allergies doxycycline Allergy (Unknown, Verified 06/22/22 11:21) Nausea and Vomiting Nursing Note Simeon is here for her scheduled Depo_provera inj today. She has no complaints. Pt requested UHCG, which was neg. next appt in 12 wks for Depo-Provera and needs to schedule annual exam. Office Procedures Depo Questionnaire If YES to any of the following questions, please consult a provider. Date of last injection: 09/19/22 Date of last gynecology exam: 01/01/22 Menstrual pattern since last injection has been: Not Applicable test in office results: Negative Irregular bleeding?: No Breast lumps or other breast changes?: No Changes in weight or appetite?: No Depression or changes in mood?: No Abnormal hair growth or loss?: No Skin problems (rash, acne, discoloration)?: No Pain at the injection site?: No Headaches?: No Nervousness?: No Abdominal pain or cramping?: No Dizziness or nausea?: No Fatigue or weakness?: No Decrease in sexual drive?: No Chest pain or shortness of breath?: No Swelling in arms or legs?: No Form completed by?: Rajiv Sanabria LPN Office Meds Depo-Provera Performing Provider: Purnima Harvey CNM Administered by: Anita Sanabria LPN on 12/11/22 13:02 Dose Route Admin Location Lot Number Expiration Date NDC [employer] 150 mg IM left deltoid [id number] 03/02/25 91253-781-71 [facility] Results AMB Test Urine AMB Test Urine Negative Last Edit by Anita Sanabria LPN on 12/11/22 13:08 per pt request Coding Level of Care Code Established Pt Est Pt Level 1 (51399) Patient Type Established History Problem Focused Exam Problem Focused Medical Decision Making Straight Forward Diagnoses Time Spent (min) 20 Assessment & Plan Assessment & Plan Orders: Orders AMB Medroxyprogesterone Injection Patient Supplied Today Z30.42 - Encounter for surveillance of injectable contraceptive
== END 2022-12-11 13:00 | disposition home or self-care (01) ==
LOC: HO.HWS 12:37
PROVIDERS: PCP Internal Medicine; Visit Provider Advanced Practice Midwife
DX: Z30.42 Encounter for surveillance of injectable contraceptive (principal)
CPT/HCPCS: J1050

== ENCOUNTER → 2022-12-11 12:37 | Outpatient (BNVA) | payer OTHER, SELFPAY | PROVIDERS: PCP Internal Medicine; Visit Provider Advanced Practice Midwife | DX: Z30.42 Encounter for surveillance of injectable contraceptive (principal) | CPT/HCPCS: 96372; 99211 ==

== ENCOUNTER 2023-03-05 10:01 | Outpatient (REF) | payer OTHER, SELFPAY ==
[2023-03-05 12:44] LABS: Hematocrit 39.7 % (37.0-47.0); Hemoglobin 13.2 g/dl (12.0-16.0)
[2023-03-05 13:40] LABS: TSH reflex Free T4 87.38 uIU/mL (0.32-4.0)
== END 2023-03-05 10:02 | disposition home or self-care (01) ==
LOC: HO.LAB 10:01
PROVIDERS: Absent Provider Internal Medicine; PCP Internal Medicine; Visit Provider Advanced Practice Midwife
DX: E03.8 Other specified hypothyroidism (principal); E55.9 Vitamin D deficiency, unspecified; D64.9 Anemia, unspecified; Z30.42 Encounter for surveillance of injectable contraceptive
CPT/HCPCS: 36415; 84439; 84443; 85014; 85018; 96372; 99211; J1050

== ENCOUNTER 2023-03-05 10:01 | Outpatient (AMB) | payer OTHER, SELFPAY ==
[2023-03-05 10:15] VITALS: BMI 19.1
--- NOTE | 2023-03-05 10:15 | AM.OFFVISNUR ---
Intake Vital Signs 03/05/23 10:15 Height 4 ft 11 in Weight 42.808 kg BMI 19.1 Intake Visit Reasons: DEPO Allergies doxycycline Allergy (Unknown, Verified 06/22/22 11:21) Nausea and Vomiting Nursing Note Simeon is here today for her scheduled Depo-provera inj. She has recently started with headaches, but has PCP appt in a few weeks. She is scheduled for her AG on 04/15/23, and was advised to keep that appt. follow up as scheduled and return in 12 wks. Office Procedures Depo Questionnaire If YES to any of the following questions, please consult a provider. Date of last injection: 12/11/22 Date of last menstrual period: 02/03/23 Date of last gynecology exam: 01/11/22 Menstrual pattern since last injection has been: Light Irregular bleeding?: No Breast lumps or other breast changes?: No Changes in weight or appetite?: Yes (lost 2 lbs) Depression or changes in mood?: No Abnormal hair growth or loss?: No Skin problems (rash, acne, discoloration)?: No Pain at the injection site?: No Headaches?: Yes (recent has appt with PCP) Nervousness?: No Abdominal pain or cramping?: No Dizziness or nausea?: No Fatigue or weakness?: No Decrease in sexual drive?: No Chest pain or shortness of breath?: No Swelling in arms or legs?: No Form completed by?: Rajiv sung LPN Office Meds Depo-Provera 150 mg/mL intramuscular syringe Performing Provider: Purnima Harvey CNM Performing Location: [facility] Administered by: Anita Sung LPN on 03/05/23 10:16 Dose Route Admin Location Dispensed Lot Number Expiration Date [facility] Duplicating Machine Servicer 150 mg IM Lt. deltoid 1 mL [id number] 09/01/23 28568-380-74 [facility] Coding Level of Care Code Established Pt Est Pt Level 1 (78999) Patient Type Established History Problem Focused Exam Problem Focused Medical Decision Making Straight Forward Time Spent (min) 15 Assessment & Plan Assessment & Plan Orders: Orders AMB Medroxyprogesterone Injection Patient Supplied Today Z30.42 - Encounter for surveillance of injectable contraceptive
== END 2023-03-05 10:15 | disposition home or self-care (01) ==
PROVIDERS: PCP Internal Medicine; Visit Provider Advanced Practice Midwife
DX: Z30.42 Encounter for surveillance of injectable contraceptive (principal)

== ENCOUNTER 2023-03-13 08:50 | Outpatient (AMB) | payer OTHER, SELFPAY ==
[2023-03-13 08:52] VITALS: BP 100/68; PULSE 75; O2SAT 99; BMI 19.1
--- NOTE | 2023-03-13 08:52 | MHC.PC.OV ---
Vital Signs 03/13/23 08:52 Height 4 ft 11 in Weight 94 lb 6 oz BMI 19.1 BP 100/68 Blood Pressure Location Rt brachial Position Sitting Pulse 75 Pulse Source Pulse Oximeter Pulse Oximetry (%) 99 Oxygen Delivery Method Room Air Intake Visit Reasons: Medications Allergies doxycycline Allergy (Unknown, Verified 03/13/23 08:52) Nausea and Vomiting Medication List - Last Reconciled 03/13/23 by Chance Lynn MD albuterol sulfate 90 mcg/actuation (ProAir HFA) 1 inh inhalation QID PRN 30 days cholecalciferol (vitamin D3) 50 mcg PO DAILY levothyroxine 88 mcg PO DAILY 30 days medroxyprogesterone (Depo-Provera) 150 mg IM Q12W Symbicort 160-4.5 mcg/actuation (budesonide-formoterol) 1 inh inhalation DAILY 30 days NS Tobacco use date assessed: 03/13/23 Dental Screening Dental Screen Date: 03/13/23 Did you have a dental visit in the last 12 months?: Yes Did you have a dental problem in the last 6 months where you did not have access to dental care?: No Was dental information given to patient?: Patient has dentist HPI Medications HPI Details Patient is 22-year-old female came in today for a follow-up, last time she was seen was March of last year patient did not come in for follow-up after that. She is asthma take, and is taking Symbicort, asthma is stable Hypothyroidism: She is on levothyroxine 88 mcg when she did not come in for follow-up medication was held. Her TSH level is elevated now She has started taking medications explained to patient that it is very important that we see her pre article E and do not miss her follow-up appointments. 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 I have ordered x-ray of her lumbar spine, I have also place referral for her to be evaluated by [facility]. Patient will return in 3 months for physical exam. [facility] Medical History Hypothyroid Asthma Surgical History S/P removal of thyroid nodule Family History Maternal Aunt Breast cancer Paternal Aunt Leukemia Social History Housing: House Alcohol intake: never Patient Tobacco Use Status: Never used Tobacco e-Cigarette/Vaping Use: Never Used Substance Use Type: Marijuana service: No Current occupational status: unemployed Sexual orientation: Straight/Heterosexual Gender identity: Female Cognitive needs: No Hearing needs: No Vision needs: Yes Female Reproductive History Menstrual Age of Menarche: 11 Questionnaire PHQ-9 Over the last 2 weeks, how often have you been bothered by any of the following problems? 1. Little interest or pleasure in doing things: not at all 2. Feeling down, depressed, or hopeless: not at all 3. Trouble falling or staying asleep, or sleeping too much: not at all 4. Feeling tired or having little energy: not at all 5. Poor appetite or overeating: not at all 6. Feeling bad about yourself - or that you are a failure or have let yourself or your family down: not at all 7. Trouble concentrating on things, such as reading the newspaper or watching television: not at all 8. Moving or speaking so slowly that other people could have noticed. Or the opposite - being so fidgety or restless that you have been moving around a lot more than usual: not at all 9. Thoughts that you would be better off or of hurting yourself in some way: not at all Total score: 0 Depression Screening Interpretation: Negative Depression Screening Done: Yes 47814 - PHQ-9 Billing: Yes Source: Developed by Drs. Luis Manuel Nash, Edith Fan, Jose Doran and colleagues, with an educational ez from [employer]. Thrive Questionnaire Date Thrive assessed: 03/13/23 I am a: Patient What is your living situation today?: I have a steady place to live Within the past 12 months, did the food you bought not last and you didn't have the money to get more?: Never true Within the past 12 months, did you worry whether your food would run out before you got money to buy more?: Never true Do you have trouble paying for medicines?: No Do you have trouble getting transportation to medical appointments?: No Do you have trouble paying your heating and electricity bill?: Yes Do you have trouble taking care of your child, family member or friend?: No Do you have trouble with day-to-day activities such as bathing, preparing meals, shopping, managing finances, etc.?: No Are you currently unemployed and looking for a job?: No Are you interested in more education?: No AUDIT C Alcohol Use Questionnaire (AUDIT-C) 1. How often do you have a drink containing alcohol?: Never 3. How often do you have six or more drinks on one occasion?: Never Total Score: 0 Score Reviewed/Action Taken: Yes KAROL-7 AMB Questionnaire KAROL-7 Date KAROL - 7 assessed: 03/13/23 Feeling nervous, anxious, or on edge: 0 = Not at all Not being able to stop or control worryin = Not at all Worrying too much about different things: 0 = Not at all Trouble relaxin = Not at all Being so restless that it is hard to sit still: 0 = Not at all Becoming easily annoyed or irritable: 0 = Not at all Feeling afraid as if something awful might happen: 0 = Not at all Total KAROL-7 score (0-4 normal; 5-9 mild; 10-14 moderate; 15-21 severe): 0 Source: Developed by Drs. Luis Manuel Nash, Edith Fan, Jose Doran and colleagues, with an educational ez from [employer]. KAROL-7 Assessment Billing KAROL-7 Assessment Tool: KAROL-7 Assessment 52182 Review of Systems Const Denies chills and Denies fever(s) ENT Denies epistaxis and Denies nasal discharge Card Denies chest pain Resp Denies chest congestion, Denies cough and Denies hemoptysis GI Denies diarrhea and Denies nausea Skin/Breast Denies rash Neuro Reports no additional complaints Psych Reports no additional complaints Endo Reports no additional complaints Physical exam (Primary Care) Vital Signs: Last Vital Signs Pulse 75 03/13/23 08:52 BP 100/68 03/13/23 08:52 Pulse Ox 99 03/13/23 08:52 Oxygen Delivery Method Room Air 03/13/23 08:52 BMI result Body Mass Index 19.1 Tobacco/Smoking Status: Tobacco use Status Tobacco use date assessed 03/13/23 03/13/23 08:54 Patient Tobacco Use Status Never used Tobacco 03/13/23 08:54 e-Cigarette/Vaping Use Never Used 03/13/23 08:54 PHQ-9: PHQ-9 Score PHQ-9: Total score 0 03/13/23 09:15 Depression Screening Interpretation: Negative Thrive Assessment: Date of Thrive Assessment Date Thrive assessed 03/13/23 03/13/23 09:15 Const General: cooperative, comfortable and no acute distress Orientation/consciousness: patient oriented x3 HENMT Head: Yes normocephalic Eyes General: appearance normal, both eyes and all related structures Neck Neck: Yes supple Resp Effort & Inspection: normal respiratory effort, no cough and no stridor Cardio Rhythm: regular rhythm Heart sounds: S1 normal heart sound present and S2 normal heart sound present Back/Spine/Pelvis Back/spine/pelvis image: 1. Area of discomfort, range of motion limited in flexion, slight discomfort with straight leg bilateral. No pain with spine percussion Skin General skin exam: turgor normal Neuro General: patient oriented x3, tone normal and moves all extremities Extrem Right lower extremity: no edema Left lower extremity: no edema Assessment and Plan Assessment & Plan (1) Asthma, moderate persistent: Code(s): J45.40 - Moderate persistent asthma, uncomplicated Qualifiers: Asthma complication type: uncomplicated Qualified Code(s): J45.40 - Moderate persistent asthma, uncomplicated (2) Other specified hypothyroidism: Code(s): E03.8 - Other specified hypothyroidism (3) Lumbar pain: Code(s): M54.50 - Low back pain, unspecified Orders: Orders Comprehensive Met. Panel Today D64.9 - Anemia, unspecified, E03.8 - Other specified hypothyroidism, M54.50 - Low back pain, unspecified Complete Blood Count Auto Diff Today D64.9 - Anemia, unspecified, E03.8 - Other specified hypothyroidism, M54.50 - Low back pain, unspecified TSH reflex Free T4 Today D64.9 - Anemia, unspecified, E03.8 - Other specified hypothyroidism, M54.50 - Low back pain, unspecified LDL Cholesterol Direct Today D64.9 - Anemia, unspecified, E03.8 - Other specified hypothyroidism, M54.50 - Low back pain, unspecified XR lumbar spine 2-3V Today M54.50 - Low back pain, unspecified Referrals Orthopedics Referral M54.50 - Low back pain, unspecified Coding Level of Care Code Est Pt Level 4 (16256) Diagnoses Moderate persistent asthma without complication J45.40 Asthma complication type: uncomplicated Other specified hypothyroidism E03.8 Lumbar pain M54.50 Additional Codes KAROL-7 Assessment Billing - KAROL-7 Assessment Tool: KAROL-7 Assessment 14147 ([id number])
== END 2023-03-13 10:04 | disposition home or self-care (01) ==
PROVIDERS: PCP Internal Medicine; Visit Provider Internal Medicine
DX: J45.40 Moderate persistent asthma, uncomplicated (principal); E03.8 Other specified hypothyroidism; M54.50 Low back pain, unspecified
CPT/HCPCS: 99214

== ENCOUNTER 2023-03-20 09:16 | Outpatient (REF) | payer OTHER, SELFPAY ==
--- NOTE | ~2023-03-20 | XR_ITS ---
EXAMINATION: XR LUMBOSACRAL SPINE CLINICAL INFORMATION: Low back pain. COMPARISON: Thoracic spine 01/02/2021. TECHNIQUE: 3 views of the lumbosacral spine. FINDINGS: Slight leftward curvature of the lumbar spine. Mild sclerosis suggesting degenerative change in the region of the bilateral sacroiliac joints could also be related to overlying soft tissues. Lumbar vertebral body heights and disc space heights are preserved. Mild spondylosis in the [id number]-av-[id number] lumbar spine. XR/XR lumbar spine 2-3V IMPRESSION: Mild sclerosis suggesting degenerative change in the region of the bilateral sacroiliac joints could also be related to overlying soft tissues. Mild spondylosis in the ajh-nz-vrrrh lumbar spine.
== END 2023-03-20 09:17 | disposition home or self-care (01) ==
LOC: HO.HMGCX 09:16
PROVIDERS: PCP Internal Medicine; Visit Provider Internal Medicine
DX: M54.50 Low back pain, unspecified (principal)
CPT/HCPCS: 72100

== ENCOUNTER 2023-03-28 08:12 | Outpatient (AMB) | payer OTHER, SELFPAY ==
--- NOTE | 2023-03-28 08:25 | A.OFFPC_ITS ---
Intake Visit Reasons: Discuss X-Ray Results~ Allergies doxycycline Allergy (Unknown, Verified 03/28/23 08:26) Nausea and Vomiting Medication List - Last Reconciled 03/28/23 by Chance Lynn MD albuterol sulfate 90 mcg/actuation (ProAir HFA) 1 inh inhalation QID PRN 30 days cholecalciferol (vitamin D3) 50 mcg PO DAILY diclofenac sodium 75 mg PO .qhs 30 days levothyroxine 88 mcg PO DAILY 30 days medroxyprogesterone (Depo-Provera) 150 mg IM Q12W Symbicort 160-4.5 mcg/actuation (budesonide-formoterol) 1 inh inhalation DAILY 30 days NS Tobacco use date assessed: 03/28/23 Dental Screening Dental Screen Date: 03/28/23 Did you have a dental visit in the last 12 months?: Yes Did you have a dental problem in the last 6 months where you did not have access to dental care?: No Was dental information given to patient?: Patient has dentist HPI Discuss X-Ray Results~ HPI Details Patient is 22-year-old female who continued to have lower back pain so much so that she is having difficulty sleeping at night So far she is taking Tylenol and local rub. Which is not helping. We did the x-ray which showed Mild sclerosis suggesting degenerative change in the region of the bilateral sacroiliac joints could also be related to overlying soft tissues. Mild spondylosis in the aam-dz-barnk lumbar spine. She is still waiting for appointment by [facility], I have given her number so she can call and book the appointment herself in [place] I am also checking [id number] I have sent diclofenac 75 mg that she may take at night after supper as needed PFSH Medical History Hypothyroid Asthma Surgical History S/P removal of thyroid nodule Family History Maternal Aunt Breast cancer Paternal Aunt Leukemia Social History Housing: House Alcohol intake: never Patient Tobacco Use Status: Never used Tobacco e-Cigarette/Vaping Use: Never Used Substance Use Type: Marijuana service: No Current occupational status: unemployed Sexual orientation: Straight/Heterosexual Gender identity: Female Cognitive needs: No Hearing needs: No Vision needs: Yes Female Reproductive History Menstrual Age of Menarche: 11 Questionnaire Thrive Questionnaire Date Thrive assessed: 03/13/23 AUDIT C Alcohol Use Questionnaire (AUDIT-C) 1. How often do you have a drink containing alcohol?: Never 3. How often do you have six or more drinks on one occasion?: Never Total Score: 0 Score Reviewed/Action Taken: Yes KAROL-7 AMB Questionnaire KAROL-7 Date KAROL - 7 assessed: 03/13/23 Source: Developed by Drs. Luis Manuel Nash, Edith Fan, Jose Doran and colleagues, with an educational ez from [employer]. Review of Systems Const Denies chills and Denies fever(s) ENT Denies epistaxis and Denies nasal discharge Card Denies chest pain Resp Denies chest congestion, Denies cough and Denies hemoptysis GI Denies diarrhea and Denies nausea Skin/Breast Denies rash Neuro Reports no additional complaints Psych Reports no additional complaints Endo Reports no additional complaints Physical exam (Primary Care) Tobacco/Smoking Status: Tobacco use Status Tobacco use date assessed 03/28/23 03/28/23 08:26 Patient Tobacco Use Status Never used Tobacco 03/28/23 08:26 e-Cigarette/Vaping Use Never Used 03/28/23 08:26 Thrive Assessment: Date of Thrive Assessment Date Thrive assessed 03/13/23 03/28/23 08:26 Telehealth Telehealth Location of provider rendering services: practice address Location of patient: address on file Patient Identification confirmed using: Name, : Yes Telehealth method: video Patient verbally consented to treatment: Yes Patient verbally consented to billing insurance company: Yes Patient informed of any privacy concerns related to visit: Yes Minutes spent on Phone/Video with Pt.: 14 Assessment and Plan Assessment & Plan (1) Bilateral sacroiliitis: Code(s): M46.1 - Sacroiliitis, not elsewhere classified (2) Lumbar pain: Code(s): M54.50 - Low back pain, unspecified Plan Patient is 22-year-old female who continued to have lower back pain so much so that she is having difficulty sleeping at night So far she is taking Tylenol and local rub. Which is not helping. We did the x-ray which showed Mild sclerosis suggesting degenerative change in the region of the bilateral sacroiliac joints could also be related to overlying soft tissues. Mild spondylosis in the [id number]-pwvvg lumbar spine. She is still waiting for appointment by [facility], I have given her number so she can call and book the appointment herself in [place] I am also checking [id number] I have sent diclofenac 75 mg that she may take at night after supper as needed Orders: Orders HLA B27 Today M54.50 - Low back pain, unspecified Medications: New diclofenac sodium 75 mg PO .qhs 30 tabs 0RF lower back pain / take with food 30 days Coding Level of Care Code Tele Est Pt Level 3 (97287) Diagnoses Bilateral sacroiliitis M46.1 Lumbar pain M54.50
== END 2023-03-28 10:04 | disposition home or self-care (01) ==
LOC: HO.HMGC 08:12
PROVIDERS: PCP Internal Medicine; Visit Provider Internal Medicine
DX: M46.1 Sacroiliitis, not elsewhere classified (principal); M54.50 Low back pain, unspecified
CPT/HCPCS: 99213

== ENCOUNTER 2023-04-15 11:23 | Outpatient (AMB) | payer OTHER, SELFPAY ==
[2023-04-15 11:32] VITALS: BP 96/60; BMI 18.8
--- NOTE | 2023-04-15 11:32 | A.OFFVIS_ITS ---
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 (Jenny) Allergies doxycycline Allergy (Unknown, Verified 04/15/23 11:32) Nausea and Vomiting Medication List - Last Reconciled 04/15/23 by Purnima Harvey CNM albuterol sulfate 90 mcg/actuation (ProAir HFA) 1 inh inhalation QID PRN 30 days diclofenac sodium 75 mg PO .qhs 30 days levothyroxine 88 mcg PO DAILY 30 days medroxyprogesterone (Depo-Provera) 150 mg IM Q12W Symbicort 160-4.5 mcg/actuation (budesonide-formoterol) 1 inh inhalation DAILY 30 days NS HPI 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 She has been on it for year and likes it she has a 3-year-old and a 5-year-old in there and school in [place]. 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 She was working in another job and that hurt her as well she said her doctor told her she had arthritis in her spine and gave her pills and she did send her to physical therapy but the exercises did not help. Dietary review she says she is getting calcium through yogurt milk ice cream cheese and she eats eggs also and she likes salads with broccoli. She states the painful cord in her breast turned out to in fact to be the plugged duct that I suspected last year and it got better with just massage and warm soaks as she had been doing she says Dr. Villanueva did need to give her any medicine. [facility] Medical History Hypothyroid Asthma Surgical History S/P removal of thyroid nodule Family History Maternal Aunt Breast cancer Paternal Aunt Leukemia Social History Housing: House Alcohol intake: never Patient Tobacco Use Status: Never used Tobacco e-Cigarette/Vaping Use: Never Used Substance Use Type: Marijuana service: No Current occupational status: unemployed Sexual orientation: Straight/Heterosexual Gender identity: Female Cognitive needs: No Hearing needs: No Vision needs: Yes Female Reproductive History Menstrual Age of Menarche: 11 control method: progesterone injection Total pregnancies: 2 Full term: 2 Number of Living Children: 2 Date of last pap smear: 01/01/22 (unsat 01/22 w neg hpv.; 04/06/22 neg.) History of abnormal pap smear: No Physical Exam Vital Signs: Last Vital Signs BP 96/60 04/15/23 11:32 BMI result Body Mass Index 18.8 Const General: healthy appearing, comfortable, no acute distress, well developed and alert Nutritional Appearance: average body habitus Orientation/consciousness: patient oriented x3 Limitations: no limitations HEENT Head: Yes normocephalic Neck Neck: Yes normal visual inspection Chest Chest palpation & inspection: normal inspection of the chest Breast/axilla inspection: normal inspection of the breasts and normal inspection of the axillae Breast/axilla palpation: normal palpation of the breasts and normal palpation of the axillae Resp Effort & Inspection: normal respiratory effort GI Inspection: Yes normal to inspection, No Abdominal wall edema and No distended Palpation (GI): Soft to palpation and nontender Other: breast exam soft within normal limits no cords or masses this year at all 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 patient was not able to recreate a Kegel I am giving her written instructions on how to do them. General: Yes bladder normal to palpation External Female Exam: normal external appearance and normal appearance of the urethra Speculum Exam - Vagina: normal appearance of the vagina, normal palpation and normal vaginal discharge Speculum Exam - Cervix: normal appearance of the cervix, normal palpation and nontender Bimanual exam- vagina & uterus: normal bimanual exam, normal palpation, uterine size normal, bladder normal to palpation, consistency normal, normal palpation, uterine mobility normal, uterine shape normal, No Cervical tenderness present, non-tender and no cervical motion tenderness Bimanual Exam- Adnexa, other: normal adnexae, no masses, normal and No adnexal tenderness Neuro General: patient oriented x3 Assessment & Plan Assessment & Plan (1) Lumbar pain: Comment: recommend continued efforts with physical therapy and exercise as per PCC. Code(s): M54.50 - Low back pain, unspecified (2) Cervical cancer screening: Comment: 04/04/22 pap= neg Code(s): Z12.4 - Encounter for screening for malignant neoplasm of cervix (3) Uses Depo-Provera as primary control method: Comment: reviewed Q 12 week timing and weight-bearing exercise and calcium and vitamin- D intake Code(s): Z78.9 - Other specified health status (4) Pelvic floor weakness: Comment: patient unable to reproduce a Kegel during the visit given written instructions and asked to do them several times a day. Code(s): N81.89 - Other female genital prolapse Plan -----Discussed in this visit the following: healthy balanced diet, regular and consistent exercise, getting recommended health screens, doing the best she can for her particular health concerns, kegel exercises, pap smear screening and followup recommendations, mammography screening and SBE, normal changes in cycles in her life stage--- . reviewed the Depo-Provera timing and her reviewed the importance of not being late for. Also reviewed her dietary intake of calcium and other nutritional needs. 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 Urged not depending on medication for back pain relief but encouraged movement. gave written instruction on doing the Kegel's as she was not able to reproduce a Kegel during the visit.. She declined other STI testing blood work. Orders: Orders Bacterial Vaginosis Panel Today Z20.2 - Contact with and (suspected) exposure to infections with a predominantly sexual mode of transmission CT NG by PCR Today Z20.2 - Contact with and (suspected) exposure to infections with a predominantly sexual mode of transmission Medications: Refilled medroxyprogesterone (Depo-Provera) 150 mg IM Q12W 1 mL 5RF Coding Level of Care Code Est Pt Prev Care 18-39y(63008) Diagnoses Lumbar pain M54.50 Cervical cancer screening Z12.4 Uses Depo-Provera as primary control method Z78.9 Pelvic floor weakness N81.89
== END 2023-04-15 12:07 | disposition home or self-care (01) ==
LOC: HO.HWS 11:23
PROVIDERS: PCP Internal Medicine; Visit Provider Advanced Practice Midwife
DX: Z01.419 Encounter for gynecological examination (general) (routine) without abnormal findings (principal); N81.89 Other female genital prolapse; M54.50 Low back pain, unspecified; Z78.9 Other specified health status
CPT/HCPCS: 99395

== ENCOUNTER 2023-04-15 11:23 | Outpatient (REF) | payer OTHER, SELFPAY | END 2023-04-15 11:24 | disposition home or self-care (01) | LOC: HO.LAB 11:23 | PROVIDERS: PCP Internal Medicine; Visit Provider Advanced Practice Midwife | DX: N81.89 Other female genital prolapse (principal); M54.50 Low back pain, unspecified; Z78.9 Other specified health status | CPT/HCPCS: 99395 ==

== ENCOUNTER 2023-04-15 12:01 | Outpatient (REF) | payer OTHER, SELFPAY ==
[2023-04-16 10:10] LABS: BV Int Neg Control Negative (Negative); BV Int Pos Control Positive (Positive)
[2023-04-16 10:52] LABS: CT PCR NOT DETECTED (Not Detect.); NG PCR NOT DETECTED (Not Detect.)
== END 2023-04-15 12:02 | disposition home or self-care (01) ==
LOC: HO.LNP 12:01
PROVIDERS: Visit Provider Advanced Practice Midwife
DX: Z20.2 Contact with and (suspected) exposure to infections with a predominantly sexual mode of transmission (principal)
CPT/HCPCS: 0353U; 87480; 87510; 87660

== ENCOUNTER 2023-04-18 06:41 | Outpatient (AMB) | payer OTHER, SELFPAY ==
--- NOTE | 2023-04-18 08:43 | MHC.PC.OV ---
Intake Visit Reasons: 3 Wk Follow Up~ Allergies doxycycline Allergy (Unknown, Verified 04/18/23 08:43) Nausea and Vomiting Medication List - Last Reconciled 04/18/23 by Chance Lynn MD albuterol sulfate 90 mcg/actuation (ProAir HFA) 1 inh inhalation QID PRN 30 days diclofenac sodium 75 mg PO .qhs 30 days levothyroxine 88 mcg PO DAILY 90 days medroxyprogesterone (Depo-Provera) 150 mg IM Q12W Symbicort 160-4.5 mcg/actuation (budesonide-formoterol) 1 inh inhalation DAILY 30 days NS Tobacco use date assessed: 04/18/23 Dental Screening Dental Screen Date: 04/18/23 Did you have a dental visit in the last 12 months?: Yes Did you have a dental problem in the last 6 months where you did not have access to dental care?: No Was dental information given to patient?: Patient has dentist HPI 3 Wk Follow Up~ HPI Details Patient is 22-year-old female this is a telemedicine video conference Patient continued to have back pain in spite of taking diclofenac that I sent for her 3 weeks ago She has already been evaluated by [facility] and will be getting cortisone injection She is just waiting for insurance approval for the procedure. Patient's thyroid test was also off, I increase the dose to 88 mcg Patient says that she ran out of medication again a week ago, I have sent a refill for 6 months Instructed patient to continue medication for 6 weeks and then repeat TSH level again. [facility] Medical History Hypothyroid Asthma Surgical History S/P removal of thyroid nodule Family History Maternal Aunt Breast cancer Paternal Aunt Leukemia Social History Housing: House Alcohol intake: never Patient Tobacco Use Status: Never used Tobacco e-Cigarette/Vaping Use: Never Used Substance Use Type: Marijuana service: No Current occupational status: unemployed Sexual orientation: Straight/Heterosexual Gender identity: Female Cognitive needs: No Hearing needs: No Vision needs: Yes Female Reproductive History Menstrual Age of Menarche: 11 Questionnaire Thrive Questionnaire Date Thrive assessed: 03/13/23 AUDIT C Alcohol Use Questionnaire (AUDIT-C) 1. How often do you have a drink containing alcohol?: Never 3. How often do you have six or more drinks on one occasion?: Never Total Score: 0 Score Reviewed/Action Taken: Yes KAROL-7 AMB Questionnaire KAROL-7 Date KAROL - 7 assessed: 03/13/23 Source: Developed by Drs. Luis Manuel Nash, Edith Fan, Jose Doran and colleagues, with an educational ez from [employer]. Review of Systems Const Denies chills and Denies fever(s) ENT Denies epistaxis and Denies nasal discharge Card Denies chest pain Resp Denies chest congestion, Denies cough and Denies hemoptysis GI Denies diarrhea and Denies nausea Skin/Breast Denies rash Neuro Reports no additional complaints Psych Reports no additional complaints Endo Reports no additional complaints Physical exam (Primary Care) Tobacco/Smoking Status: Tobacco use Status Tobacco use date assessed 04/18/23 04/18/23 08:45 Patient Tobacco Use Status Never used Tobacco 04/18/23 08:45 e-Cigarette/Vaping Use Never Used 04/18/23 08:45 Thrive Assessment: Date of Thrive Assessment Date Thrive assessed 03/13/23 04/18/23 08:45 Telehealth Telehealth Location of provider rendering services: practice address Location of patient: address on file Patient Identification confirmed using: Name, : Yes Telehealth method: video Patient verbally consented to treatment: Yes Patient verbally consented to billing insurance company: Yes Patient informed of any privacy concerns related to visit: Yes Assessment and Plan Assessment & Plan (1) Bilateral sacroiliitis: Code(s): M46.1 - Sacroiliitis, not elsewhere classified (2) Lumbar pain: Comment: recommend continued efforts with physical therapy and exercise as per PCC. Code(s): M54.50 - Low back pain, unspecified (3) Other specified hypothyroidism: Code(s): E03.8 - Other specified hypothyroidism Plan Patient is 22-year-old female this is a telemedicine video conference Patient continued to have back pain in spite of taking diclofenac that I sent for her 3 weeks ago She has already been evaluated by [facility] and will be getting cortisone injection She is just waiting for insurance approval for the procedure. she has not done HLAB27 test that I ordered for her Patient's thyroid test was also off, I increase the dose to 88 mcg Patient says that she ran out of medication again a week ago, I have sent a refill for 6 months Instructed patient to continue medication for 6 weeks and then repeat TSH level again. Medications: Changed From levothyroxine 88 mcg PO DAILY 30 days 30 tabs 0RF To levothyroxine 88 mcg PO DAILY 90 days 90 tabs 1RF Coding Level of Care Code Tele Est Pt Level 3 (41997) Diagnoses Bilateral sacroiliitis M46.1 Lumbar pain M54.50 Other specified hypothyroidism E03.8 Time Spent (min) 13
== END 2023-04-18 11:17 | disposition home or self-care (01) ==
LOC: HO.HMGC 06:41
PROVIDERS: PCP Internal Medicine; Visit Provider Internal Medicine
DX: M46.1 Sacroiliitis, not elsewhere classified (principal); M54.50 Low back pain, unspecified; E03.8 Other specified hypothyroidism
CPT/HCPCS: 99213

== ENCOUNTER 2023-06-06 08:30 | Outpatient (AMB) | payer OTHER, SELFPAY ==
--- NOTE | 2023-06-06 08:47 | MHC.PC.OV ---
Intake Visit Reasons: Discuss Results~[phone] Allergies doxycycline Allergy (Unknown, Verified 06/06/23 08:47) Nausea and Vomiting Medication List - Last Reconciled 06/06/23 by Chance Lynn MD albuterol sulfate 90 mcg/actuation (ProAir HFA) 1 inh inhalation QID PRN 30 days diclofenac sodium 75 mg PO .qhs 30 days levothyroxine 88 mcg PO DAILY 90 days medroxyprogesterone (Depo-Provera) 150 mg IM Q12W Symbicort 160-4.5 mcg/actuation (budesonide-formoterol) 1 inh inhalation DAILY 30 days NS Tobacco use date assessed: 06/06/23 Dental Screening Dental Screen Date: 06/06/23 Did you have a dental visit in the last 12 months?: Yes Did you have a dental problem in the last 6 months where you did not have access to dental care?: No Was dental information given to patient?: Patient has dentist HPI Discuss Results~[phone] HPI Details Patient is 22-year-old female who continued to suffer from lower back pain, she is currently seeing [facility] and has gotten cortisone injection which did not help her. She also was given diclofenac course that also did not help the patient She is in a process of getting MRI of her back through [facility] I ordered labs for patient her TSH level is still off in 8 range I have adjusted her levothyroxine to 112 mcg. She will repeat labs again in 2 months. Other labs ordered came back positive for antinuclear antibody positive speckled pattern, lab discussed with the patient I have created a referral for her to be evaluated at arthritis treatment center [place] as per her request. [facility] Medical History Hypothyroid Asthma Surgical History S/P removal of thyroid nodule Family History Maternal Aunt Breast cancer Paternal Aunt Leukemia Social History Housing: House Alcohol intake: never Patient Tobacco Use Status: Never used Tobacco e-Cigarette/Vaping Use: Never Used Substance Use Type: Marijuana service: No Current occupational status: unemployed Sexual orientation: Straight/Heterosexual Gender identity: Female Cognitive needs: No Hearing needs: No Vision needs: Yes Female Reproductive History Menstrual Age of Menarche: 11 Questionnaire Thrive Questionnaire Date Thrive assessed: 03/13/23 KAROL-7 AMB Questionnaire KAROL-7 Date KAROL - 7 assessed: 03/13/23 Source: Developed by Drs. Luis Manuel Nash, Edith Fan, Jose Doran and colleagues, with an educational ez from [employer]. Review of Systems Const Denies chills and Denies fever(s) ENT Denies epistaxis and Denies nasal discharge Card Denies chest pain Resp Denies chest congestion, Denies cough and Denies hemoptysis GI Denies diarrhea and Denies nausea Skin/Breast Denies rash Neuro Reports no additional complaints Psych Reports no additional complaints Endo Reports no additional complaints Physical exam (Primary Care) Tobacco/Smoking Status: Tobacco use Status Tobacco use date assessed 06/06/23 06/06/23 08:48 Patient Tobacco Use Status Never used Tobacco 06/06/23 08:48 e-Cigarette/Vaping Use Never Used 06/06/23 08:48 Thrive Assessment: Date of Thrive Assessment Date Thrive assessed 03/13/23 06/06/23 08:48 Telehealth Telehealth Location of provider rendering services: practice address Location of patient: address on file Patient Identification confirmed using: Name, : Yes Telehealth method: video Patient verbally consented to treatment: Yes Patient verbally consented to billing insurance company: Yes Patient informed of any privacy concerns related to visit: Yes Minutes spent on Phone/Video with Pt.: 15 Assessment and Plan Assessment & Plan (1) Other specified hypothyroidism: Code(s): E03.8 - Other specified hypothyroidism (2) SAIDA positive: Code(s): R76.8 - Other specified abnormal immunological findings in serum (3) Lumbar pain: Comment: recommend continued efforts with physical therapy and exercise as per PCC. Code(s): M54.50 - Low back pain, unspecified (4) Bilateral sacroiliitis: Code(s): M46.1 - Sacroiliitis, not elsewhere classified Plan Patient is 22-year-old female who continued to suffer from lower back pain, she is currently seeing [facility] and has gotten cortisone injection which did not help her. She also was given diclofenac course that also did not help the patient She is in a process of getting MRI of her back through [facility] I ordered labs for patient her TSH level is still off in 8 range I have adjusted her levothyroxine to 112 mcg. She will repeat labs again in 2 months. Other labs ordered came back positive for antinuclear antibody positive speckled pattern, lab discussed with the patient I have created a referral for her to be evaluated at arthritis treatment [facility] as per her request. Orders: Orders TSH reflex Free T4 2 Months E03.8 - Other specified hypothyroidism Referrals Rheumatology Referral M46.1 - Sacroiliitis, not elsewhere classified, M54.50 - Low back pain, unspecified, R76.8 - Other specified abnormal immunological findings in serum Medications: Changed From levothyroxine 88 mcg PO DAILY 90 days 90 tabs 1RF To levothyroxine 112 mcg PO DAILY 90 days 90 tabs 0RF Coding Level of Care Code Tele New Pt Level 4 (27236) Diagnoses Other specified hypothyroidism E03.8 SAIDA positive R76.8 Lumbar pain M54.50 Bilateral sacroiliitis M46.1 Time Spent (min) 30 Comment 7 pre visit, 15 with patient, 8 min charting / coordination of care
== END 2023-06-06 13:05 | disposition home or self-care (01) ==
LOC: HO.HMGC 08:30
PROVIDERS: PCP Internal Medicine; Visit Provider Internal Medicine
DX: M46.1 Sacroiliitis, not elsewhere classified (principal); E03.8 Other specified hypothyroidism; R76.8 Other specified abnormal immunological findings in serum; M54.50 Low back pain, unspecified
CPT/HCPCS: 99214

== ENCOUNTER 2023-06-17 00:05 | Emergency (ER) | payer OTHER, SELFPAY ==
--- NOTE | 2023-06-17 | ECG_ITS ---
Test Reason : CP Blood Pressure : / mmHG Vent. Rate : 091 BPM Atrial Rate : 091 BPM P-R Int : 138 ms QRS Dur : 072 ms QT Int : 324 ms P-R-T Axes : 067 055 040 degrees QTc Int : 398 ms Normal sinus rhythm Normal ECG No previous ECGs available Referred By: Generic ED Physician Electronically Signed By:ANTOINETTE RAZA
[2023-06-17 00:18] VITALS: BP 97/70; PULSE 97; RESP 14; TEMP 36.8; O2SAT 97; BMI 21.8
[2023-06-17 01:01] LABS: MANUAL DIFF FLAG NO
[2023-06-17 01:04] LABS: Basophils Percent Auto 0.2 % (0-2); Eosinophils Percent Auto 0.5 % (0-4); Hematocrit 41.1 % (37.0-47.0); Hemoglobin 13.7 g/dl (12.0-16.0); Imm Gran Abs Auto 0.01 X10*3/uL (0.00-0.03); Imm Gran Pct Auto 0.2 % (0.0-0.4); Lymphocytes Absolute Auto 0.7 X10*3/uL (1.2-4.9); Lymphocytes Percent Auto 11.8 % (20-40); Mean Corpuscular HGB Conc 33.3 g/dl (31.0-35.0); Mean Platelet Volume 9.1 fL (9.4-12.3); Monocytes Absolute Auto 0.3 X10*3/uL (0.1-1.2); Monocytes Percent Auto 4.7 % (2-11); Neutrophils Absolute Auto 4.8 x10*3/uL (2.0-8.3); Neutrophils Percent Auto 82.6 % (45-73); Platelet Count 154 X10*3/uL (160-400); Red Blood Count 4.28 X10*6/uL (4.20-5.50); White Blood Count 5.8 X10*3/uL (4.8-10.8)
[2023-06-17 01:18] LABS: Anion Gap 12 (12-20); Blood Urea Nitrogen 11 mg/dL (9-16); COVID-19 Test Negative (Negative); Calcium 9.1 mg/dL (8.4-10.2); Carbon Dioxide 23 mmol/L (22-29); Chloride 109 mmol/L (96-108); Creatinine Clr Calc Pharmacy 70.1; Estimated Glomerular Filt Rate > 60; Glucose Random 101 mg/dL (60-115); IDNOW Serial# 6674DD1D; Potassium 3.4 mmol/L (3.3-5.1); Sodium 141 mmol/L (135-145)
[2023-06-17 01:50] LABS: IDNOW Serial# 58CA691E; Influenza A Negative (Negative); Influenza B2 Negative (Negative)
== END 2023-06-17 04:36 | disposition left against medical advice (07) ==
PROVIDERS: Emergency Provider Emergency Medicine; PCP Internal Medicine
DX: R06.02 Shortness of breath (principal); R07.89 Other chest pain; R11.2 Nausea with vomiting, unspecified; Z79.899 Other long term (current) drug therapy; Z11.52 Encounter for screening for COVID-19; Z20.828 Contact with and (suspected) exposure to other viral communicable diseases
CPT/HCPCS: 80048; 85025; 87502; 87635; 93005; 99283

== ENCOUNTER → 2023-06-17 00:12 | Outpatient (BNV) | payer OTHER, SELFPAY | PROVIDERS: Emergency Provider Emergency Medicine; PCP Internal Medicine; Visit Provider Internal Medicine | DX: R07.9 Chest pain, unspecified (principal) | CPT/HCPCS: 93010 ==

== ENCOUNTER 2023-07-05 10:15 | Outpatient (AMB) | payer OTHER, SELFPAY ==
[2023-07-05 10:17] VITALS: BP 122/76; PULSE 73; O2SAT 98; BMI 18.9
--- NOTE | 2023-07-05 10:17 | MHC.PC.OV ---
Vital Signs 07/05/23 10:17 Height 4 ft 11 in Weight 93 lb 8 oz BMI 18.9 BP 122/76 Blood Pressure Location Lt brachial Position Sitting Pulse 73 Pulse Source Pulse Oximeter Pulse Oximetry (%) 98 Oxygen Delivery Method Room Air Intake Visit Reasons: Annual PE Allergies doxycycline Allergy (Unknown, Verified 07/05/23 10:18) Nausea and Vomiting Medication List - Last Reconciled 07/05/23 by Chance Lynn MD albuterol sulfate 90 mcg/actuation (ProAir HFA) 1 inh inhalation QID PRN 30 days levothyroxine 112 mcg PO DAILY 90 days Symbicort 160-4.5 mcg/actuation (budesonide-formoterol) 1 inh inhalation DAILY 30 days NS Tobacco use date assessed: 07/05/23 Dental Screening Dental Screen Date: 07/05/23 Did you have a dental visit in the last 12 months?: Yes Did you have a dental problem in the last 6 months where you did not have access to dental care?: No Was dental information given to patient?: Patient has dentist HPI Annual PE HPI Details Patient is 23-year-old female came in for physical exam Asthma is acting up these days as patient is having head cold mild She also smoke marijuana every night to go to sleep Hypothyroidism: We recently adjusted her thyroid medication to levothyroxine 112 mcg patient is to repeat labs end of August And come back early September for follow-up Thrombocytopenia, chronic but stable OBGYN appointment set up-to-date breast exam through OBGYN Follow-up 1 year for physical exam [facility] Medical History Hypothyroid Asthma Surgical History S/P removal of thyroid nodule Family History Maternal Aunt Breast cancer Paternal Aunt Leukemia Social History Housing: House Alcohol intake: never Patient Tobacco Use Status: Never used Tobacco e-Cigarette/Vaping Use: Never Used Substance Use Type: Marijuana service: No Current occupational status: unemployed Sexual orientation: Straight/Heterosexual Gender identity: Female Cognitive needs: No Hearing needs: No Vision needs: Yes Female Reproductive History Menstrual Age of Menarche: 11 Questionnaire PHQ-9 Over the last 2 weeks, how often have you been bothered by any of the following problems? 1. Little interest or pleasure in doing things: several days 2. Feeling down, depressed, or hopeless: not at all 3. Trouble falling or staying asleep, or sleeping too much: more than half the days 4. Feeling tired or having little energy: more than half the days 5. Poor appetite or overeating: several days 6. Feeling bad about yourself - or that you are a failure or have let yourself or your family down: not at all 7. Trouble concentrating on things, such as reading the newspaper or watching television: not at all 8. Moving or speaking so slowly that other people could have noticed. Or the opposite - being so fidgety or restless that you have been moving around a lot more than usual: not at all 9. Thoughts that you would be better off or of hurting yourself in some way: not at all Total score: 6 Depression Screening Interpretation: Negative Depression Screening Done: Yes 43381 - PHQ-9 Billing: Yes Source: Developed by Drs. Luis Manuel Nash, Edith Fan, Jose Doran and colleagues, with an educational ez from [employer]. Thrive Questionnaire Date Thrive assessed: 03/13/23 I am a: Patient What is your living situation today?: I have a steady place to live Within the past 12 months, did the food you bought not last and you didn't have the money to get more?: Never true Within the past 12 months, did you worry whether your food would run out before you got money to buy more?: Never true Do you have trouble paying for medicines?: No Do you have trouble getting transportation to medical appointments?: No Do you have trouble paying your heating and electricity bill?: Yes Do you have trouble taking care of your child, family member or friend?: No Do you have trouble with day-to-day activities such as bathing, preparing meals, shopping, managing finances, etc.?: No Are you currently unemployed and looking for a job?: No Are you interested in more education?: No Please select the resources that you would like help with: Utilities Currently or been in a relationship where the following occur: no concerns reported THRIVE Score: 1 AUDIT C Alcohol Use Questionnaire (AUDIT-C) 1. How often do you have a drink containing alcohol?: Never 3. How often do you have six or more drinks on one occasion?: Never Total Score: 0 Score Reviewed/Action Taken: Yes KAROL-7 AMB Questionnaire KAROL-7 Date KAROL - 7 assessed: 03/13/23 Feeling nervous, anxious, or on edge: 1 = Several days Not being able to stop or control worryin = Not at all Worrying too much about different things: 0 = Not at all Trouble relaxin = Not at all Being so restless that it is hard to sit still: 0 = Not at all Becoming easily annoyed or irritable: 1 = Several days Feeling afraid as if something awful might happen: 0 = Not at all Total KAROL-7 score (0-4 normal; 5-9 mild; 10-14 moderate; 15-21 severe): 2 Source: Developed by Drs. Luis Manuel Nash, Edith Fan, Jose Doran and colleagues, with an educational ez from [employer]. KAROL-7 Assessment Billing KAROL-7 Assessment Tool: KAROL-7 Assessment 76916 Review of Systems Const Denies chills, Denies fever(s) and Denies headache(s) Eyes Denies blurry vision ENT Denies headache(s), Denies nasal discharge, Denies nasal obstruction, Denies odynophagia and Denies sinus pain Card Denies chest pain at rest and Denies chest pain with activity Resp Denies cough and Denies hemoptysis GI Denies diarrhea, Denies odynophagia, Denies vomiting and Denies hematemesis Reports as per HPI Musc Denies abnormal gait Skin/Breast Reports as per HPI Neuro Denies Neuro-related abnormal movements, Denies Abnormal speech present, Denies abnormal gait, Denies headache(s) and Denies Sensory deficit (Neuro) Psych Denies mood swings and Denies paranoia Endo Reports as per HPI Ramone/Lymph Reports as per HPI Aller/Immun Reports as per HPI Physical exam (Primary Care) Vital Signs: Last Vital Signs Pulse 73 07/05/23 10:17 BP 122/76 07/05/23 10:17 Pulse Ox 98 07/05/23 10:17 Oxygen Delivery Method Room Air 07/05/23 10:17 BMI result Body Mass Index 18.9 Tobacco/Smoking Status: Tobacco use Status Tobacco use date assessed 07/05/23 07/05/23 10:23 Patient Tobacco Use Status Never used Tobacco 07/05/23 10:23 e-Cigarette/Vaping Use Never Used 07/05/23 10:23 PHQ-9: PHQ-9 Score PHQ-9: Total score 6 07/05/23 10:53 Depression Screening Interpretation: Negative Thrive Assessment: Date of Thrive Assessment Date Thrive assessed 03/13/23 07/05/23 10:23 Currently or been in a relationship where the following occur: no concerns reported Const General: cooperative, comfortable and no acute distress Orientation/consciousness: patient oriented x3 HENMT Head: Yes normocephalic and Yes atraumatic Eyes General: appearance normal, both eyes and all related structures Pupils: Equal, round and reactive pupils present EOM: EOMs intact bilaterally Neck Neck: Yes supple and No lymphadenopathy Thyroid: Thyroid normal Lymphatic: no lymphadenopathy noted Resp Effort & Inspection: normal respiratory effort and able to speak in complete sentences Auscultation: clear to auscultation bilaterally Cardio Heart sounds: S1 normal heart sound present and S2 normal heart sound present GI Palpation (GI): Soft to palpation and nontender Auscultation: normal bowel sounds General: Yes no CVA tenderness Back/Spine/Pelvis Back: no CVA tenderness Skin General skin exam: elasticity normal and turgor normal Neuro General: patient oriented x3 and gait normal Cranial nerves: Yes Equal, round and reactive pupils present Speech: No Abnormal speech present Sensory Exam: No Sensory deficit (Neuro) Coordination: tandem gait normal and Romberg test negative Extrem General: Yes normal exam except as noted and No edema Assessment and Plan Assessment & Plan (1) Encounter for general adult medical examination with abnormal findings: Code(s): Z00.01 - Encounter for general adult medical examination with abnormal findings (2) Other specified hypothyroidism: Code(s): E03.8 - Other specified hypothyroidism (3) Vitamin D deficiency: Code(s): E55.9 - Vitamin D deficiency, unspecified (4) Asthma, moderate persistent: Code(s): J45.40 - Moderate persistent asthma, uncomplicated Qualifiers: Asthma complication type: uncomplicated Qualified Code(s): J45.40 - Moderate persistent asthma, uncomplicated (5) SAIDA positive: Code(s): R76.8 - Other specified abnormal immunological findings in serum Plan Patient is 23-year-old female came in for physical exam Asthma is acting up these days as patient is having head cold mild She also smoke marijuana every night to go to sleep Hypothyroidism: We recently adjusted her thyroid medication to levothyroxine 112 mcg patient is to repeat labs end of August And come back early September for follow-up Thrombocytopenia, chronic but stable OBGYN appointment set up-to-date breast exam through OBGYN Patient is SAIDA positive and has appointment with door puller coming up for evaluation She continued to have lower back pain Follow-up 1 year for physical exam Coding Level of Care Code Est Pt Prev Care 18-39y(62727) Diagnoses Encounter for general adult medical examination with abnormal findings Z00.01 Other specified hypothyroidism E03.8 Vitamin D deficiency E55.9 Moderate persistent asthma without complication J45.40 Asthma complication type: uncomplicated SAIDA positive R76.8 Additional Codes KAROL-7 Assessment Billing - KAROL-7 Assessment Tool: KAROL-7 Assessment [id number] ([id number])
== END 2023-07-05 12:05 | disposition home or self-care (01) ==
PROVIDERS: PCP Internal Medicine; Visit Provider Internal Medicine
DX: Z00.00 Encounter for general adult medical examination without abnormal findings (principal); E03.8 Other specified hypothyroidism; E55.9 Vitamin D deficiency, unspecified; J45.40 Moderate persistent asthma, uncomplicated; R76.8 Other specified abnormal immunological findings in serum
CPT/HCPCS: 99395

== ENCOUNTER 2023-07-09 15:02 | Outpatient (REF) | payer OTHER, SELFPAY ==
[2023-07-09 17:51] LABS: Erythrocyte Sedimentation Rate 13 MM/HR (0-20)
[2023-07-10 09:11] LABS: HBS Num1 0.48 mIU/mL (0-7.99); HBc Num1 0.09 S/CO (0.00-0.79); HBsAGNum1 0.31 S/CO (0.00-0.99); Hepatitis A Antibody IgM 0.14 Index (0-0.79); Hepatitis B Core Antibody Nonreactive (Nonreactive); Hepatitis B Surface Antigen Negative (Negative); ~HepC Num1 0.54 S/CO (0.00-0.79); ~Hepatitis A Antibody IgM Nonreactive (Nonreactive); ~Hepatitis B Surface Antibody NONREACTIVE (Nonreactive); ~Hepatitis C Antibody Nonreactive (Nonreactive)
[2023-07-10 18:33] LABS: Anti DNA DS Antibody 5 IU/mL; Antibody to SS-A Antigen <1.0 NEG AI (<1.0 NEG); Antibody to SS-B Antigen <1.0 NEG AI (<1.0 NEG); SM/Ribonucleoprotein Ab <1.0 NEG AI (<1.0 NEG); Smith Protein <1.0 NEG AI (<1.0 NEG)
[2023-07-10 19:49] LABS: Thyroglobulin Antibodies 4 IU/mL (< or = 1); Thyroid Peroxidase Antibodies 35 IU/mL (<9)
[2023-07-10 22:03] LABS: Complement C3 130 mg/dL (83-193)
[2023-07-11 12:13] LABS: Prot Elec - Albumin 4.3 g/dL (3.8-4.8); Prot Elec - Alpha1 0.3 g/dL (0.2-0.3); Prot Elec - Alpha2 0.7 g/dL (0.5-0.9); Prot Elec - Beta 1 0.5 g/dL (0.4-0.6); Prot Elec - Beta 2 0.5 g/dL (0.2-0.5); Prot Elec - Gamma 1.1 g/dL (0.8-1.7); Prot Elec - Total Protein 7.3 g/dL (6.1-8.1)
[2023-07-12 08:09] LABS: TS Negative Control Passed; TS Panel A 0; TS Panel B 0; TS Positive Control Passed; TSpotTB Negative (Negative)
[2023-07-15 05:08] LABS: Aldolase 2.7 U/L (<=8.1)
[2023-07-16 03:49] LABS: IgA 516 mg/dL (47-310); IgG 1029 mg/dL (600-1640); IgM 177 mg/dL (50-300)
== END 2023-07-09 15:03 | disposition home or self-care (01) ==
LOC: HO.LAB 15:02
PROVIDERS: PCP Internal Medicine; Visit Provider Nurse Practitioner Family
DX: R76.8 Other specified abnormal immunological findings in serum (principal); M25.561 Pain in right knee; M25.562 Pain in left knee; G89.29 Other chronic pain; M46.1 Sacroiliitis, not elsewhere classified; M54.50 Low back pain, unspecified; Z79.60 Long term (current) use of unspecified immunomodulators and immunosuppressants
CPT/HCPCS: 36415; 82085; 82784; 84165; 85652; 86160; 86225; 86235; 86334; 86376; 86481; 86704; 86706; 86709; 86800; 86803; 87340; 99202

== ENCOUNTER 2023-07-09 15:02 | Outpatient (AMB) | payer OTHER, SELFPAY ==
--- NOTE | 2023-07-09 15:07 | MHC.OFFVIS ---
Intake Vital Signs 07/09/23 15:08 Height 4 ft 11 in Weight 92 lb 9.506 oz BMI 18.7 BP 102/58 L Blood Pressure Location Lt brachial Position Sitting Pulse 71 Pulse Source Pulse Oximeter Temp 97.5 F Temp Source Skin Pulse Oximetry (%) 97 Oxygen Delivery Method Room Air Intake Visit Reasons: +SAIDA/Sacroilitis Intake Note: New patient, internally referred, presents to office today for +SAIDA/Sacroilitis. She is accompanied by her father who reports he had a sister that with Lupus. She c/o pain everywhere. Pain started approx August 2022. Has tried prednisone, oral meds, patches, cortisone injections and nothing has helped her pain. Clinical Rehabilitation Specialist Required: No Accompanied by: Father Allergies doxycycline Allergy (Unknown, Verified 07/09/23 15:11) Nausea and Vomiting HPI HPI Comments History of Present Illness Details Hung Johnson is a 23-year-old female patient who presents\, accompanied by her father, for evaluation of +SAIDA, lower back and SI joint pain. She has a history of Thyroid disease, asthma. She has been complaining of lower back pin since March 2023. 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 She follows with [facility] and [facility], taken diclofenac or uses topical, gel and received injections but nothing has helped. She has done xrays and MRI of the lower back. She has had her thyroid removed an is on replacement therapy. She denies red burning eyes, rashes, tendinitis, chronic diarrhea, mucous or blood in stool. Patient denies mouth sores, excessive fatigue, sun sensitivity, raynaud's and pain to other joints. She denies red, warm swollen joints. [facility] Medical History (Updated 07/15/23 @ 15:19 by Kathryn Espinal [facility]) Long-term use of immunosuppressant medication Bilateral chronic knee pain Hypothyroid Asthma Surgical History S/P removal of thyroid nodule Family History (Updated 07/09/23 @ 15:13 by JT North) Maternal Aunt Breast cancer Paternal Aunt Leukemia Mother No problems noted. Father No problems noted. Paternal Aunt Lupus Social History (Reviewed 07/09/23 @ 15:12 by Kymberly Maciel [facility]) Housing: House Alcohol intake: never Patient Tobacco Use Status: Never used Tobacco e-Cigarette/Vaping Use: Never Used Substance Use Type: Marijuana service: No Current occupational status: unemployed Sexual orientation: Straight/Heterosexual Gender identity: Female Cognitive needs: No Hearing needs: No Vision needs: Yes Female Reproductive History Menstrual Age of Menarche: 11 Review of Systems Const All systems reviewed & are unremarkable except as noted in HPI and below Physical Exam Vital Signs: Last Vital Signs Temp 97.5 F 07/09/23 15:08 Pulse 71 07/09/23 15:08 BP 102/58 L 07/09/23 15:08 Pulse Ox 97 07/09/23 15:08 Oxygen Delivery Method Room Air 07/09/23 15:08 BMI result Body Mass Index 18.7 APPEARANCE: Patient in no acute distress, groomed, nourished EYES no redness, eyelids normal EARS:? External ear normal, canal clear and tympanic membrane normal. NOSE/SINUS:? Airflow through both nares, no nasal discharge, no bleeding THROAT:? Oral mucosa moist, no ulcerations NECK:? No thyromegaly or masses, no adenopathy, trachea midline. HEART:? Regular rhythm, S1-S2 heard, no murmurs, rubs or gallops. LUNG:? Clear to percussion and auscultation EXTREMITIES:? No edema, no calf tenderness, normal peripheral pulses. NEURO:? Oriented and alert x3.? No focal weakness.? Reflexes symmetric.? Gait normal. SKIN:? There are no skin lesions evident. No objective signs of Raynaud's phenomenon. JOINT EXAM: Cervical Spine:.? Full range of motion without pain; no tenderness. Thoracic Spine:.? No scoliosis.? No tenderness on palpation. Lumbar Spine:.? Alignment normal.? Full range of motion without pain, mild tenderness. Chest Wall:.? No tenderness, swelling, increased warmth or erythema. Hands:.? Normal pain-free range of motion without tenderness, swelling, increased warmth or erythema. Able to make a full fist and has a good wood router strength. Wrists:.? Normal pain-free range of motion without tenderness, swelling, increased warmth or erythema. Elbows:. Normal pain-free range of motion without tenderness, swelling, increased warmth or erythema. Shoulders:.?? Full range of motion without pain. No tenderness, weakness, swelling, increased warmth or erythema. Hips:.? Full range of motion without pain. Hip bursa:.? No tenderness. Knees:.?? Normal pain-free range of motion without tenderness, swelling, increased warmth or erythema.? There is no effusion or crepitation Ankles:.? Normal pain-free range of motion without tenderness, swelling, increased warmth or erythema. Feet:.? Normal pain-free range of motion without tenderness, swelling, increased warmth or erythema. Tender points:? No tenderness to digital palpation at the occiput, trapezius, second rib, lateral epicondyle, knees, greater trochanter and gluteal area bilaterally. Results Reviewed Results Reviewed: Ordering Physician: Chance Lynn MD Date of Service: 03/20/23 Procedure(s): XR lumbar spine 2-3V Accession Number(s): [id number] cc: Chance Lynn MD~ EXAMINATION: XR LUMBOSACRAL SPINE CLINICAL INFORMATION: Low back pain. COMPARISON: Thoracic spine 01/02/2021. TECHNIQUE: 3 views of the lumbosacral spine. FINDINGS: Slight leftward curvature of the lumbar spine. Mild sclerosis suggesting degenerative change in the region of the bilateral sacroiliac joints could also be related to overlying soft tissues. Lumbar vertebral body heights and disc space heights are preserved. Mild spondylosis in the [id number] lumbar spine. XR/XR lumbar spine 2-3V IMPRESSION: Mild sclerosis suggesting degenerative change in the region of the bilateral sacroiliac joints could also be related to overlying soft tissues. Mild spondylosis in the piv-bk-cvyou lumbar spine. 06/14/2023 - Lumbar MRI - Unremarkable. Laboratory Tests 06/17/23 06/17/23 07/09/23 00:55 00:55 16:08 WBC 5.8 RBC 4.28 Hgb 13.7 Plt Count 154 L ESR 13 BUN 11 Creatinine 0.85 Estimated GFR > 60 Calcium 9.1 Assessment & Plan Assessment & Plan (1) SAIDA positive: Code(s): R76.8 - Other specified abnormal immunological findings in serum (2) Bilateral sacroiliitis: Code(s): M46.1 - Sacroiliitis, not elsewhere classified (3) Lumbar pain: Comment: recommend continued efforts with physical therapy and exercise as per PCC. Code(s): M54.50 - Low back pain, unspecified (4) Long-term use of immunosuppressant medication: Code(s): Z79.60 - intermodal customer service (current) use of unspecified immunomodulators and immunosuppressants Plan #+SAIDA: Ms. Persaud here for evaluation of +SAIDA 1:360. On initial review of history, diagnositics and physical exam, the patient does not present as having an underlying CTD or inflammatory pathology. I suspect that her history of thyroid disease may be the inciting cause for the +SAIDA. She had a thyroidectomy some year ago and is now on Levothyroxine. I have obtain ENAs and Thyroid antibodies to evaluate further and the results are that she does have positive thyroid antibodies. There is also an indeterminate result for +anti-dsDNA (5). I do not think this value is of significance at this time, and the patient does not a clinical presentation of SLE. #Low back pain/Sacroiliitis: All attempts at medication, injection, therapy have not been effective per patient. If this was an inflammatory back pain, the expectation is there would be some improvement with corticosteroid injection, NSAIDs or even Prednisone which was tried. Her ESR/CRP are WNL. Imaging suggest mild OA in the lumbar and scleroisis of the SI joint. However, MRI (06/2023) did not identify marrow edema or signs of inflammation. Though her back pain seems more mechanical, I discussed with patient the option to start Leflunomide and assess for improvement. Given the tenderness of the SI joint and lower back, I think it may be reasonable to try an immunomodulator given this could also be non-radiographic AxSpA. HLAB27 labs were obtain. #Pharmacy Operations Specialist Use: We discussed necessary monitoring for Leflunomide of CBC, liver enzymes. The patient was made aware of possible side effects which include but are not limited to N/V/D, liver toxicity and blood changes. She has a history of low platelets, currently stable, so we will keep an eye on that. F/u in 3 weeks. Orders: Orders Aldolase 07/09/23 G89.29 - Other chronic pain, M25.561 - Pain in right knee, M25.562 - Pain in left knee, M46.1 - Sacroiliitis, not elsewhere classified, M54.50 - Low back pain, unspecified, R76.8 - Other specified abnormal immunological findings in serum Complement C3 07/09/23. - Other chronic pain, M25.561 - Pain in right knee, M25.562 - Pain in left knee, M46.1 - Sacroiliitis, not elsewhere classified, M54.50 - Low back pain, unspecified, R76.8 - Other specified abnormal immunological findings in serum Erythrocyte Sedimentation Rate 07/09/23. - Other chronic pain, M25.561 - Pain in right knee, M25.562 - Pain in left knee, M46.1 - Sacroiliitis, not elsewhere classified, M54.50 - Low back pain, unspecified, R76.8 - Other specified abnormal immunological findings in serum Immunofixation Pnl, Serum 07/09/23. - Other chronic pain, M25.561 - Pain in right knee, M25.562 - Pain in left knee, M46.1 - Sacroiliitis, not elsewhere classified, M54.50 - Low back pain, unspecified, R76.8 - Other specified abnormal immunological findings in serum Protein Electrophoresis, Serum 07/09/23. - Other chronic pain, M25.561 - Pain in right knee, M25.562 - Pain in left knee, M46.1 - Sacroiliitis, not elsewhere classified, M54.50 - Low back pain, unspecified, R76.8 - Other specified abnormal immunological findings in serum T Spot TB 07/09/23. - Other chronic pain, M25.561 - Pain in right knee, M25.562 - Pain in left knee, M46.1 - Sacroiliitis, not elsewhere classified, M54.50 - Low back pain, unspecified, R76.8 - Other specified abnormal immunological findings in serum Anti Extractable Nuclear Ag 07/09/23. - Other chronic pain, M25.561 - Pain in right knee, M25.562 - Pain in left knee, M46.1 - Sacroiliitis, not elsewhere classified, M54.50 - Low back pain, unspecified, R76.8 - Other specified abnormal immunological findings in serum Complement C4 02/06/24 G89.29 - Other chronic pain, M25.561 - Pain in right knee, M25.562 - Pain in left knee, M46.1 - Sacroiliitis, not elsewhere classified, M54.50 - Low back pain, unspecified, R76.8 - Other specified abnormal immunological findings in serum C Reactive Protein 07/09/2389.29 - Other chronic pain, M25.561 - Pain in right knee, M25.562 - Pain in left knee, M46.1 - Sacroiliitis, not elsewhere classified, M54.50 - Low back pain, unspecified, R76.8 - Other specified abnormal immunological findings in serum Creatine Kinase Total 07/09/2389. - Other chronic pain, M25.561 - Pain in right knee, M25.562 - Pain in left knee, M46.1 - Sacroiliitis, not elsewhere classified, M54.50 - Low back pain, unspecified, R76.8 - Other specified abnormal immunological findings in serum Sjogren's Antibodies 07/09/2389.29 - Other chronic pain, M25.561 - Pain in right knee, M25.562 - Pain in left knee, M46.1 - Sacroiliitis, not elsewhere classified, M54.50 - Low back pain, unspecified, R76.8 - Other specified abnormal immunological findings in serum Immunoglobulins,IgG IgA IgM 07/09/2389. - Other chronic pain, M25.561 - Pain in right knee, M25.562 - Pain in left knee, M46.1 - Sacroiliitis, not elsewhere classified, M54.50 - Low back pain, unspecified, R76.8 - Other specified abnormal immunological findings in serum Hepatitis A,B,C Profile 07/09/2389. - Other chronic pain, M25.561 - Pain in right knee, M25.562 - Pain in left knee, M46.1 - Sacroiliitis, not elsewhere classified, M54.50 - Low back pain, unspecified, R76.8 - Other specified abnormal immunological findings in serum Anti DNA DS Antibody 07/09/23 G89.29 - Other chronic pain, M25.561 - Pain in right knee, M25.562 - Pain in left knee, M46.1 - Sacroiliitis, not elsewhere classified, M54.50 - Low back pain, unspecified, R76.8 - Other specified abnormal immunological findings in serum Thyroid Peroxidase Antibodies 07/09/23 G89.29 - Other chronic pain, M25.561 - Pain in right knee, M25.562 - Pain in left knee, M46.1 - Sacroiliitis, not elsewhere classified, M54.50 - Low back pain, unspecified, R76.8 - Other specified abnormal immunological findings in serum Thyroglobulin Antibodies 07/09/23 G89.29 - Other chronic pain, M25.561 - Pain in right knee, M25.562 - Pain in left knee, M46.1 - Sacroiliitis, not elsewhere classified, M54.50 - Low back pain, unspecified, R76.8 - Other specified abnormal immunological findings in serum Coding Level of Care Code New Pt Level 4 (72747) Diagnoses SAIDA positive R76.8 Bilateral sacroiliitis M46.1 Lumbar pain M54.50 Long-term use of immunosuppressant medication Z79.60
[2023-07-09 15:08] VITALS: BP 102/58; PULSE 71; TEMP 36.4; O2SAT 97; BMI 18.7
== END 2023-07-09 15:45 | disposition home or self-care (01) ==
PROVIDERS: PCP Internal Medicine; Visit Provider Nurse Practitioner Family
DX: R76.8 Other specified abnormal immunological findings in serum (principal); M46.1 Sacroiliitis, not elsewhere classified; M54.50 Low back pain, unspecified; Z79.60 Long term (current) use of unspecified immunomodulators and immunosuppressants
CPT/HCPCS: 99204

== ENCOUNTER 2023-08-01 11:26 | Outpatient (AMB) | payer OTHER, SELFPAY ==
--- NOTE | 2023-08-01 11:32 | A.OFFVIS_ITS ---
Intake Vital Signs 08/01/23 11:41 Height 4 ft 11 in Weight 88 lb 10.013 oz BMI 17.9 BP 90/50 L Blood Pressure Location Rt brachial Position Sitting Pulse 60 Pulse Source Pulse Oximeter Temp 98.1 F Temp Source Skin Pulse Oximetry (%) 93 Oxygen Delivery Method Room Air Intake Visit Reasons: +SAIDA/Sacroilitis Intake Note: Patient last seen 07/09/23 by Teddy, presents today for follow up and test results. 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 She has a history of Thyroid disease, asthma. She has been complaining of lower back pin since March 2023. 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 She follows with [facility], taken diclofenac or uses topical, gel and received injections but nothing has helped. She has done xrays and MRI of the lower back. She has had her thyroid removed an is on replacement therapy. She denies red burning eyes, rashes, tendinitis, chronic diarrhea, mucous or blood in stool. Patient denies mouth sores, excessive fatigue, sun sensitivity, raynaud's and pain to other joints. She denies red, warm swollen joints. [facility] Medical History (Updated 07/15/23 @ 15:19 by Kathryn Espinal, [facility]) Long-term use of immunosuppressant medication Bilateral chronic knee pain Hypothyroid Asthma Surgical History S/P removal of thyroid nodule Family History Maternal Aunt Breast cancer Paternal Aunt Leukemia Mother No problems noted. Father No problems noted. Paternal Aunt Lupus Social History Housing: House Alcohol intake: never Patient Tobacco Use Status: Never used Tobacco e-Cigarette/Vaping Use: Never Used Substance Use Type: Marijuana service: No Current occupational status: unemployed Sexual orientation: Straight/Heterosexual Gender identity: Female Cognitive needs: No Hearing needs: No Vision needs: Yes Female Reproductive History Menstrual Age of Menarche: 11 Physical Exam Vital Signs: Last Vital Signs Temp 98.1 F 08/01/23 11:41 Pulse 60 08/01/23 11:41 BP 90/50 L 08/01/23 11:41 Pulse Ox 93 08/01/23 11:41 Oxygen Delivery Method Room Air 08/01/23 11:41 BMI result Body Mass Index 17.9 APPEARANCE: Patient in no acute distress, groomed, nourished EYES no redness, eyelids normal HEART:? Regular rhythm, S1-S2 heard, no murmurs, rubs or gallops. LUNG:? Clear to percussion and auscultation EXTREMITIES:? No edema, no calf tenderness, normal peripheral pulses. NEURO:? Oriented and alert x3.? No focal weakness.? Reflexes symmetric.? Gait normal. SKIN:? There are no skin lesions evident. No objective signs of Raynaud's phenomenon. JOINT EXAM: Lumbar Spine:.? Alignment normal.? Full range of motion without pain, mild tenderness. Mild tenderness to SI joint Hands:.? Normal pain-free range of motion without tenderness, swelling, increased warmth or erythema. 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 Wrists:.? Normal pain-free range of motion without tenderness, swelling, increased warmth or erythema. Elbows:. Normal pain-free range of motion without tenderness, swelling, increased warmth or erythema. Shoulders:.?? Full range of motion without pain. No tenderness, weakness, swelling, increased warmth or erythema. Hips:.? Full range of motion without pain. Hip bursa:.? No tenderness. Knees:.?? Normal pain-free range of motion without tenderness, swelling, increased warmth or erythema.? There is no effusion or crepitation Ankles:.? Normal pain-free range of motion without tenderness, swelling, increased warmth or erythema. Feet:.? Normal pain-free range of motion without tenderness, swelling, increased warmth or erythema. Tender points:? No tenderness to digital palpation at the occiput, trapezius, second rib, lateral epicondyle, knees, greater trochanter and gluteal area bilaterally. Assessment & Plan Assessment & Plan (1) SAIDA positive: Code(s): R76.8 - Other specified abnormal immunological findings in serum (2) Bilateral sacroiliitis: Code(s): M46.1 - Sacroiliitis, not elsewhere classified (3) Lumbar pain: Comment: recommend continued efforts with physical therapy and exercise as per PCC. Code(s): M54.50 - Low back pain, unspecified (4) Long-term use of immunosuppressant medication: Code(s): Z79.60 - intermediate (current) use of unspecified immunomodulators and immunosuppressants Plan #+SAIDA: Ms. Persaud here for evaluation of +SAIDA 1:360. On initial review of history, diagnositics and physical exam, the patient does not present as having an underlying CTD or inflammatory pathology. I suspect that her history of thyroid disease may be the inciting cause for the +SAIDA. She had a thyroidectomy some year ago and is now on Levothyroxine. I have obtain ENAs and Thyroid antibodies to evaluate further and the results are that she does have positive thyroid antibodies. There is also an indeterminate result for +anti-dsDNA (5). I do not think this value is of significance at this time, and the patient does not a clinical presentation of SLE. She has a history of low platelets so it is not unreasonable to think that this could be a prodrome to lupus. However, at this time patient has no clinical presentation on her body for ITP. We will continue to monitor. #Low back pain/Sacroiliitis: All attempts at medication, injection, therapy have not been effective per patient. If this was an inflammatory back pain, the expectation is there would be some improvement with corticosteroid injection, NSAIDs or even Prednisone which was tried. Her ESR/CRP are WNL. Imaging suggest mild OA in the lumbar and scleroisis of the SI joint. However, MRI (06/2023) did not identify marrow edema or signs of inflammation. Though her back pain seems more mechanical, I discussed with patient the option to start Leflunomide and assess for improvement. Given the tenderness of the SI joint and lower back, I think it may be reasonable to try an immunomodulator given this could also be non-radiographic AxSpA. HLAB27 labs were negative. Start her on leflunomide 10 mg daily for 2 weeks and then increase to 20 mg daily. #Usp Use: We discussed necessary monitoring for Leflunomide of CBC, liver enzymes and kidney function. The patient was made aware of possible side effects which include but are not limited to N/V/D, liver toxicity and blood changes. Discussed with patient that she stopped the medication context of fever, infection, surgery, and nonhealing wounds. She has a history of low platelets, currently stable, so we will keep an eye on that. F/u in 3 weeks. Orders: Orders Comprehensive Met. Panel Today Z79.60 - intermediate (current) use of unspecified immunomodulators and immunosuppressants Erythrocyte Sedimentation Rate Today Z79.60 - intermodal customer service (current) use of unspecified immunomodulators and immunosuppressants Complete Blood Count Auto Diff Today Z79.60 - intermediate (current) use of unspecified immunomodulators and immunosuppressants Medications: New leflunomide Take 1 tablet per day x two weeks, then take 2 tablets per day. 90 tabs 0RF Coding Level of Care Code Est Pt Level 3 (29907) Diagnoses SAIDA positive R76.8 Bilateral sacroiliitis M46.1 Lumbar pain M54.50 Long-term use of immunosuppressant medication Z79.60
[2023-08-01 11:41] VITALS: BP 90/50; PULSE 60; TEMP 36.7; O2SAT 93; BMI 17.9
== END 2023-08-01 12:38 | disposition home or self-care (01) ==
PROVIDERS: PCP Internal Medicine; Visit Provider Nurse Practitioner Family
DX: R76.8 Other specified abnormal immunological findings in serum (principal); M46.1 Sacroiliitis, not elsewhere classified; M54.50 Low back pain, unspecified; Z79.60 Long term (current) use of unspecified immunomodulators and immunosuppressants
CPT/HCPCS: 99213

== ENCOUNTER → 2023-08-01 11:26 | Outpatient (BNVA) | payer OTHER, SELFPAY | PROVIDERS: PCP Internal Medicine; Visit Provider Nurse Practitioner Family | DX: R76.8 Other specified abnormal immunological findings in serum (principal); M46.1 Sacroiliitis, not elsewhere classified; M54.50 Low back pain, unspecified; Z79.60 Long term (current) use of unspecified immunomodulators and immunosuppressants | CPT/HCPCS: 99212 ==

== ENCOUNTER 2023-08-21 15:38 | Outpatient (REF) | payer OTHER, SELFPAY ==
[2023-08-21 16:01] LABS: MANUAL DIFF FLAG NO
[2023-08-21 16:28] LABS: Basophils Percent Auto 0.4 % (0-2); Eosinophils Absolute Auto 0.1 X10*3/uL (0.0-0.4); Eosinophils Percent Auto 1.4 % (0-4); Hematocrit 38.2 % (37.0-47.0); Hemoglobin 12.9 g/dl (12.0-16.0); Imm Gran Abs Auto 0.02 X10*3/uL (0.00-0.03); Imm Gran Pct Auto 0.4 % (0.0-0.4); Lymphocytes Percent Auto 35.1 % (20-40); Mean Corpuscular HGB Conc 33.8 g/dl (31.0-35.0); Mean Corpuscular Hemoglobin 32.3 pg (27.0-33.0); Mean Corpuscular Volume 95.5 fL (80.0-98.0); Mean Platelet Volume 10.1 fL (9.4-12.3); Monocytes Absolute Auto 0.4 X10*3/uL (0.1-1.2); Monocytes Percent Auto 6.4 % (2-11); Neutrophils Absolute Auto 3.2 x10*3/uL (2.0-8.3); Neutrophils Percent Auto 56.3 % (45-73); Platelet Count 147 X10*3/uL (160-400); Red Cell Distribution Width 12.3 % (11.0-16.0); White Blood Count 5.6 X10*3/uL (4.8-10.8)
[2023-08-21 17:03] LABS: Erythrocyte Sedimentation Rate 7 MM/HR (0-20)
[2023-08-21 17:41] LABS: Alanine Aminotransferase 7 U/L (0-31); Albumin Level 4.4 g/dL (3.5-5.0); Alkaline Phosphatase 52 U/L (39-117); Anion Gap 12 (12-20); Aspartate Amino Transferase 10 U/L (5-31); Bilirubin Total 0.6 mg/dL (0.0-1.0); Blood Urea Nitrogen 9 mg/dL (9-16); C Reactive Protein < 0.04 mg/dL (< or = 0.50); Calcium 9.3 mg/dL (8.4-10.2); Carbon Dioxide 25 mmol/L (22-29); Chloride 107 mmol/L (96-108); Estimated Glomerular Filt Rate > 60; Glucose Random 78 mg/dL (60-115); Potassium 3.6 mmol/L (3.3-5.1); Sodium 140 mmol/L (135-145); Total Protein 7.5 g/dL (6.5-8.0)
== END 2023-08-21 15:39 | disposition home or self-care (01) ==
LOC: HO.LAB 15:38
PROVIDERS: PCP Internal Medicine; Visit Provider Nurse Practitioner Family
DX: R76.8 Other specified abnormal immunological findings in serum (principal); M25.561 Pain in right knee; M25.562 Pain in left knee; G89.29 Other chronic pain; M46.1 Sacroiliitis, not elsewhere classified; M54.50 Low back pain, unspecified; Z79.60 Long term (current) use of unspecified immunomodulators and immunosuppressants
CPT/HCPCS: 36415; 80053; 82550; 85025; 85652; 86140

== ENCOUNTER 2023-08-28 11:43 | Outpatient (AMB) | payer OTHER, SELFPAY ==
--- NOTE | 2023-08-28 11:44 | A.OFFVIS_ITS ---
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 levothyroxine 88 mcg PO DAILY Symbicort 160-4.5 mcg/actuation (budesonide-formoterol) 1 inh inhalation DAILY 30 days NS Is last menstrual period known: Yes Last menstrual period: 08/18/23 Post menopausal: No HPI control consult (DEPO) HPI Details Patient is here for control consult she says she wants to restart her Depo. She says she was supposed to get her Depo in June but the office had no nurses that day and they told her they were going to call her back and they never did and she called a week later and nobody called her back and then she bled at the beginning of July for about a week and a half and then it stopped and restarted again for another long period. Since she had not been able to get the Depo-Provera she and her partner talked about maybe it was a sign that they should have another baby so they been very active sexually and trying to have a baby. Meanwhile her medication for her lupus says on it that she should not get on it and would need to stop and she says that she decided for that reason to maybe wait a while but she still has continue to have unprotected sex including last night. Patient has expressed ambivalence many times in this office visit about whether not she wants to get or wants to put it off for now. She then landed on that yes she does want to restart the Depo her last period was August 17 and it just finished. She has 1 child is going to be 6 and 1 child who is about to turn four the Saturday. She says the issues that her breasts that she had years ago have gone away completely and also when the Depo had worn off her nipples were very sensitive and she did call the office wondering about that. She was told it was because she was now off the Depo. I reviewed with her how when she is off the Depo- Provera her cycles returned to more normal and breast sensitivity happens for most women before their menses [facility] Medical History (Updated 08/28/23 @ 12:26 by Purnima Harvey CNM) Lupus Long-term use of immunosuppressant medication Bilateral chronic knee pain Hypothyroid Asthma Surgical History S/P removal of thyroid nodule Family History Maternal Aunt Breast cancer Paternal Aunt Leukemia Mother No problems noted. Father No problems noted. Paternal Aunt Lupus Social History Housing: House Alcohol intake: never Patient Tobacco Use Status: Never used Tobacco e-Cigarette/Vaping Use: Never Used Substance Use Type: Marijuana service: No Current occupational status: unemployed Sexual orientation: Straight/Heterosexual Gender identity: Female Cognitive needs: No Hearing needs: No Vision needs: Yes Female Reproductive History Menstrual Age of Menarche: 11 Duration of menses: 6-7 days Date of last menstrual period: 08/18/23 control method: none Total pregnancies: 2 Full term: 2 Number of Living Children: 2 Date of last pap smear: 04/06/22 (negative) Physical Exam Vital Signs: Last Vital Signs BP 82/60 L 08/28/23 11:49 BMI result Body Mass Index 19.4 Results Reviewed Results Reviewed: Name: Simeon Persaud Age/Sex: 21/F Attending: Purnima Harvey CNM : 2000 Submitted by: Purnima Harvey CNM Copies to: MR #: [id number] Status: DEP REF Collected: 04/04/22 Location: [facility] Received: 04/06/22 Interpretation Satisfactory for evaluation. Mild inflammation. Negative for intraepithelial lesion or malignancy. Clinical Information LMP: No menses Previous PAP test: 01/02/22, WNL Material Received ThinPrep-Cervical Electronically Signed By: DORY Marinelli (ASCP) 04/19/22 9247 The Pap Test is a screening procedure with the inherent possibility of both false negative and false positive results. Results should be interpreted in the context of historic and current clinical findings. Reliability of the Pap Test is enhanced by performing the test on a regular repetitive basis. Patient: Simeon Persaud Age/Sex: 21/F MR#: [id number] Page 1 of 1 Assessment & Plan Assessment & Plan (1) Long-term use of immunosuppressant medication: Code(s): Z79.60 - custodial (current) use of unspecified immunomodulators and immunosuppressants (2) SAIDA positive: Code(s): R76.8 - Other specified abnormal immunological findings in serum (3) Uses Depo-Provera as primary control method: Comment: reviewed Q 12 week timing and weight-bearing exercise and calcium and vitamin- D intake Code(s): Z78.9 - Other specified health status (4) Family planning counseling: Comment: Patient expressing ambivalence between trying to get and wanting to postpone a ... Code(s): Z30.09 - Encounter for other general counseling and advice on contraception Plan Patient is here for control consult she says she wants to restart her Depo. She says she was supposed to get her Depo in June but the office had no nurses that day and they told her they were going to call her back and they never did and she called a week later and nobody called her back and then she bled at the beginning of July for about a week and a half and then it stopped and restarted again for another long period. Since she had not been able to get the Depo-Provera she and her partner talked about maybe it was a sign that they should have another baby so they been very active sexually and trying to have a baby. Meanwhile her medication for her lupus says on it that she should not get on it and would need to stop and she says that she decided for that reason to maybe wait a while but she still has continue to have unprotected sex including last night. Patient has expressed ambivalence many times in this office visit about whether not she wants to get or wants to put it off for now. She then landed on that yes she does want to restart the Depo her last period was August 17 and it just finished. She has 1 child is going to be 6 and 1 child who is about to turn [age] the Saturday. She says the issues that her breasts that she had years ago have gone away completely and also when the Depo had worn off her nipples were very sensitive and she did call the office wondering about that. She was told it was because she was now off the Depo. I reviewed with her how when she is off the Depo- Provera her cycles returned to a more normal cycle and breast sensitivity is common and normal before menses. Reviewed in detail with her being clear about whether not she wishes to get and ask herself that question before she has unprotected sex so that if she does get it is what she chooses to do which is apparently what she has been choosing to do till today. She does need to wait until her next full menses and start at the beginning of a full menses with the next Depo I have ordered her enough for a year supply or more with Depo Q 12 weeks with 5 refills as I had ordered it in March and prior to that as well all of those prescriptions appear to be discontinued. She got a text from her [facility] that the new prescription had gone in before she left the office. At least 30 minutes [id number] discussing patient has history other factors and ambivalence about contracepting versus trying to have a baby. Medications: Changed From medroxyprogesterone (Depo-Provera) 150 mg IM Q12W 1 mL 5RF To medroxyprogesterone (Depo-Provera) Needs to restart at the beginning of the next full menses, with negative test 150 mg IM Q12W 1 mL 5RF Coding Level of Care Code Est Pt Level 3 (61849) Diagnoses Long-term use of immunosuppressant medication Z79.60 SAIDA positive R76.8 Uses Depo-Provera as primary control method Z78.9 Family planning counseling Z30.09 Time Spent (min) 30 Comment 100% [id number] reviewing pertinent medical issues.
[2023-08-28 11:49] VITALS: BP 82/60; BMI 19.4
== END 2023-08-28 13:28 | disposition home or self-care (01) ==
LOC: HO.HWSM 11:43
PROVIDERS: PCP Internal Medicine; Visit Provider Advanced Practice Midwife
DX: Z79.60 Long term (current) use of unspecified immunomodulators and immunosuppressants (principal); R76.8 Other specified abnormal immunological findings in serum; Z78.9 Other specified health status; Z30.09 Encounter for other general counseling and advice on contraception
CPT/HCPCS: 99213

== ENCOUNTER → 2023-08-28 11:43 | Outpatient (BNVA) | payer OTHER, SELFPAY | PROVIDERS: PCP Internal Medicine; Visit Provider Advanced Practice Midwife | DX: R76.8 Other specified abnormal immunological findings in serum (principal); Z30.09 Encounter for other general counseling and advice on contraception; Z78.9 Other specified health status; Z79.60 Long term (current) use of unspecified immunomodulators and immunosuppressants | CPT/HCPCS: 99212 ==

== ENCOUNTER 2023-09-06 09:16 | Outpatient (AMB) | payer OTHER, SELFPAY ==
[2023-09-06 09:19] VITALS: BP 90/58; PULSE 87; O2SAT 99; BMI 17.2
--- NOTE | 2023-09-06 09:19 | MHC.PC.OV ---
Vital Signs 09/06/23 09:19 Height 4 ft 11 in Weight 85 lb BMI 17.2 BP 90/58 L Blood Pressure Location Rt brachial Position Sitting Pulse 87 Pulse Source Pulse Oximeter Pulse Oximetry (%) 99 Oxygen Delivery Method Room Air Intake Visit Reasons: 2 month follow up Allergies doxycycline Allergy (Unknown, Verified 09/06/23 09:21) Nausea and Vomiting Medication List - Last Reconciled 09/06/23 by Chance Lynn MD acetaminophen mg PO albuterol sulfate 90 mcg/actuation (ProAir HFA) 1 inh inhalation QID PRN 30 days chlorhexidine gluconate 0.12% PO fluoride (sodium) 1.1% (Denta 5000 Plus) appl PO leflunomide Take 1 tablet per day x two weeks, then take 2 tablets per day. levothyroxine 88 mcg PO DAILY medroxyprogesterone (Depo-Provera) 150 mg IM Q12W Symbicort 160-4.5 mcg/actuation (budesonide-formoterol) 1 inh inhalation DAILY 30 days NS Tobacco use date assessed: 09/06/23 Dental Screening Dental Screen Date: 09/06/23 Did you have a dental visit in the last 12 months?: Yes Did you have a dental problem in the last 6 months where you did not have access to dental care?: No Was dental information given to patient?: Patient has dentist HPI 2 month follow up HPI Details Patient is a 23-year-old female came in today for her regular follow-up Patient said that yesterday there was ice on her stairs she slipped fell Today she is feeling sore all over her body is having difficulty walking Her joints are mobile neck is supple Basically having joint soreness and spasm I have sent cyclobenzaprine 5 mg to be taken to 3 times a day for a week as needed Migraine headache: Patient suffers from migraine headaches which are worse these days, she is taking no medication, [id number] Excedrin is not helping She is to start amitriptyline 10 mg at night, I have sent sumatriptan that she may take at onset of headache with 1 naproxen. Asthma: Stable with Symbicort refill provided Hypothyroidism: Labs to be done today meanwhile continue levothyroxine 112 mcg refill provided We will book telemedicine visit in 3 weeks to follow-up on migraine In house follow-up in January. [facility] Medical History Lupus Long-term use of immunosuppressant medication Bilateral chronic knee pain Hypothyroid Asthma Surgical History S/P removal of thyroid nodule Family History Maternal Aunt Breast cancer Paternal Aunt Leukemia Mother No problems noted. Father No problems noted. Paternal Aunt Lupus Social History Housing: House Alcohol intake: never Patient Tobacco Use Status: Never used Tobacco e-Cigarette/Vaping Use: Never Used Substance Use Type: Marijuana service: No Current occupational status: unemployed Sexual orientation: Straight/Heterosexual Gender identity: Female Cognitive needs: No Hearing needs: No Vision needs: Yes Female Reproductive History Menstrual Age of Menarche: 11 Questionnaire Thrive Questionnaire Date Thrive assessed: 03/13/23 KAROL-7 AMB Questionnaire KAROL-7 Date KAROL - 7 assessed: 03/13/23 Source: Developed by Drs. Luis Manuel Nash, Edith Fan, Jose Doran and colleagues, with an educational ez from [email or web address]. Review of Systems Const Denies chills and Denies fever(s) ENT Denies epistaxis and Denies nasal discharge Card Denies chest pain Resp Denies chest congestion, Denies cough and Denies hemoptysis GI Denies diarrhea and Denies nausea Skin/Breast Denies rash Neuro Reports no additional complaints Psych Reports no additional complaints Endo Reports no additional complaints Physical exam (Primary Care) Vital Signs: Last Vital Signs Pulse 87 09/06/23 09:19 BP 90/58 L 09/06/23 09:19 Pulse Ox 99 09/06/23 09:19 Oxygen Delivery Method Room Air 09/06/23 09:19 BMI result Body Mass Index 17.2 Tobacco/Smoking Status: Tobacco use Status Tobacco use date assessed 09/06/23 09/06/23 09:24 Patient Tobacco Use Status Never used Tobacco 09/06/23 09:24 e-Cigarette/Vaping Use Never Used 09/06/23 09:24 Thrive Assessment: Date of Thrive Assessment Date Thrive assessed 03/13/23 09/06/23 09:24 Const General: cooperative and comfortable Orientation/consciousness: patient oriented x3 HENMT Head: Yes normocephalic Eyes General: appearance normal, both eyes and all related structures Neck Neck: Yes supple Resp Effort & Inspection: normal respiratory effort, no cough and no stridor Cardio Rhythm: regular rhythm Heart sounds: S1 normal heart sound present and S2 normal heart sound present Skin General skin exam: turgor normal Neuro General: patient oriented x3, tone normal and moves all extremities Extrem Other: Joints are mobile, neck supple Right lower extremity: no edema Left lower extremity: no edema Assessment and Plan Assessment & Plan (1) Fall: Code(s): W19.XXXA - Unspecified fall, initial encounter Qualifiers: Encounter type: initial encounter Qualified Code(s): W19.XXXA - Unspecified fall, initial encounter (2) Other specified hypothyroidism: Code(s): E03.8 - Other specified hypothyroidism (3) Asthma, moderate persistent: Code(s): J45.40 - Moderate persistent asthma, uncomplicated Qualifiers: Asthma complication type: uncomplicated Qualified Code(s): J45.40 - Moderate persistent asthma, uncomplicated (4) Migraine headache: Code(s): G43.909 - Migraine, unspecified, not intractable, without status migrainosus Qualifiers: Intractability: intractable Migraine type: unspecified Status migrainosus presence: without status migrainosus Qualified Code(s): G43.919 - Migraine, unspecified, intractable, without status migrainosus (5) Muscle soreness: Code(s): M79.10 - Myalgia, unspecified site (6) SAIDA positive: Code(s): R76.8 - Other specified abnormal immunological findings in serum Plan Patient is a 23-year-old female came in today for her regular follow-up Patient said that yesterday there was ice on her stairs she slipped fell Today she is feeling sore all over her body is having difficulty walking Her joints are mobile neck is supple Basically having joint soreness and spasm I have sent cyclobenzaprine 5 mg to be taken to 3 times a day for a week as needed Migraine headache: Patient suffers from migraine headaches which are worse these days, she is taking no medication, [id number] Excedrin is not helping She is to start amitriptyline 10 mg at night, I have sent sumatriptan that she may take at onset of headache with 1 naproxen. Asthma: Stable with Symbicort refill provided Hypothyroidism: Labs to be done today meanwhile continue levothyroxine 112 mcg refill provided We will book telemedicine visit in 3 weeks to follow-up on migraine In house follow-up in January. Patient is also established with Rheumatology Medications: New cyclobenzaprine 5 mg PO Q8H 21 tabs 0RF 7 days M54.9 - Dorsalgia, unspecified sumatriptan succinate At the onset of migraine headache with 1 naproxen 25 mg PO ONCE PRN 14 tabs 0RF migraine headache 30 days amitriptyline 10 mg PO BEDTIME 30 tabs 0RF Changed From levothyroxine 88 mcg PO DAILY To levothyroxine 112 mcg PO DAILY 90 tabs 1RF 90 days Refilled Symbicort 160-4.5 mcg/actuation (budesonide-formoterol) 1 inh inhalation DAILY 10.2 grams 5RF 30 days NS Coding Level of Care Code Est Pt Level 4 (44040) Diagnoses Fall, initial encounter W19.XXXA Encounter type: initial encounter Other specified hypothyroidism E03.8 Moderate persistent asthma without complication J45.40 Asthma complication type: uncomplicated Intractable migraine without status migrainosus, unspecified migraine type G43.919 Intractability: intractable Migraine type: unspecified Status migrainosus presence: without status migrainosus Muscle soreness M79.10 SAIDA positive R76.8
== END 2023-09-06 09:42 | disposition home or self-care (01) ==
PROVIDERS: PCP Internal Medicine; Visit Provider Internal Medicine
DX: E03.8 Other specified hypothyroidism (principal); W19.XXXA Unspecified fall, initial encounter; J45.40 Moderate persistent asthma, uncomplicated; G43.919 Migraine, unspecified, intractable, without status migrainosus; M79.10 Myalgia, unspecified site; R76.8 Other specified abnormal immunological findings in serum
CPT/HCPCS: 99214

== ENCOUNTER 2023-09-18 08:42 | Outpatient (AMB) | payer OTHER, SELFPAY ==
--- NOTE | 2023-09-18 09:20 | AM.OFFVISNUR ---
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 Pt started her menses yesterday, test in office today is Neg. Pt tolerated inj well, no c/o. Advised condom use x2 wks since she is late for her Depo-Provera. Follow up in 12 wks for next inj. Office Procedures Depo Questionnaire If YES to any of the following questions, please consult a provider. Date of last injection: 03/05/23 Date of last menstrual period: 09/17/23 Date of last gynecology exam: 04/15/23 Menstrual pattern since last injection has been: Normal test in office results: Negative Irregular bleeding?: No Breast lumps or other breast changes?: No Changes in weight or appetite?: No Depression or changes in mood?: No Abnormal hair growth or loss?: No Skin problems (rash, acne, discoloration)?: No Pain at the injection site?: No Headaches?: No Nervousness?: No Abdominal pain or cramping?: No Dizziness or nausea?: No Fatigue or weakness?: No Decrease in sexual drive?: No Chest pain or shortness of breath?: No Swelling in arms or legs?: No Form completed by?: Rajiv Sanabria LPN Office Meds Depo-Provera 150 mg/mL intramuscular syringe Performing Provider: Purnima Harvey CNM Performing Location: [facility] [place] [facility] Administered by: Anita Sanabria LPN on 09/18/23 09:22 Dose Route Admin Location Dispensed Lot Number Expiration Date [facility] [employer] 150 mg IM Lt deltoid 1 mL [id number] 08/31/25 13235-655-42 [facility] Results AMB Test Urine AMB Test Urine Negative Last Edit by Anita Sanabria LPN on 09/18/23 09:27 Coding Level of Care Code Established Pt Est Pt Level 1 (42464) Patient Type Established History Problem Focused Exam Problem Focused Medical Decision Making Straight Forward Time Spent (min) 20 Assessment & Plan Assessment & Plan Orders: Orders AMB Medroxyprogesterone Injection Patient Supplied Today Z78.9 - Other specified health status
== END 2023-09-18 09:02 | disposition home or self-care (01) ==
PROVIDERS: PCP Internal Medicine; Visit Provider Advanced Practice Midwife
DX: Z78.9 Other specified health status (principal)

== ENCOUNTER → 2023-09-18 08:42 | Outpatient (BNVA) | payer OTHER, SELFPAY | PROVIDERS: PCP Internal Medicine; Visit Provider Advanced Practice Midwife | DX: Z78.9 Other specified health status (principal) | CPT/HCPCS: 96372; 99211; J1050 ==

== ENCOUNTER 2023-10-15 10:13 | Outpatient (AMB) | payer OTHER, SELFPAY ==
--- NOTE | 2023-10-15 10:15 | MHC.OFFVIS ---
Vital Signs 10/15/23 10:43 Height 4 ft 11 in Weight 82 lb 10.774 oz BMI 16.7 BP 98/62 Blood Pressure Location Rt brachial Position Sitting Pulse 69 Pulse Source Pulse Oximeter Pulse Oximetry (%) 99 Oxygen Delivery Method Room Air Intake Visit Reasons: Sacroiliitis/ Do labs in 2 months Intake Note: Patient last seen 07/12/23, presents today for follow up and test results. Pt reports bruising on her legs for 2 weeks. She has also noticed worsening joint pains. 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 She says she felt worse taking the Leflunomide and did not tolerate it well due to abdominal pain. She says she also had more si joint pain while taking it. 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 She has a history of Thyroid disease, asthma. She has been complaining of lower back pin since March 2023. 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 She follows with [facility], taken diclofenac or uses topical, gel and received injections but nothing has helped. She has done xrays and MRI of the lower back. She has had her thyroid removed an is on replacement therapy. She denies red burning eyes, rashes, tendinitis, chronic diarrhea, mucous or blood in stool. Patient denies mouth sores, excessive fatigue, sun sensitivity, raynaud's and pain to other joints. She denies red, warm swollen joints. [facility] Medical History (Updated 10/15/23 @ 11:24 by VJ Junior) Chronic pain syndrome Bruising, spontaneous Lupus Long-term use of immunosuppressant medication Bilateral chronic knee pain Hypothyroid Asthma Surgical History S/P removal of thyroid nodule Family History Maternal Aunt Breast cancer Paternal Aunt Leukemia Mother No problems noted. Father No problems noted. Paternal Aunt Lupus Social History Housing: House Alcohol intake: never Patient Tobacco Use Status: Never used Tobacco e-Cigarette/Vaping Use: Never Used Substance Use Type: Marijuana service: No Current occupational status: unemployed Sexual orientation: Straight/Heterosexual Gender identity: Female Cognitive needs: No Hearing needs: No Vision needs: Yes Female Reproductive History Menstrual Age of Menarche: 11 Review of Systems Const All systems reviewed & are unremarkable except as noted in HPI and below Physical Exam Vital Signs: Last Vital Signs Pulse 69 10/15/23 10:43 BP 98/62 10/15/23 10:43 Pulse Ox 99 10/15/23 10:43 Oxygen Delivery Method Room Air 10/15/23 10:43 BMI result Body Mass Index 16.7 Vital signs reviewed. Constitutional: Non-toxic appearing. No acute distress. Well-developed and well-nourished. HEENT: Normocephalic and atraumatic. External auditory canals without erythema or edema bilaterally. Skin: Warm and dry. No rashes or lesions noted. Neck: Full and painless range of motion. No cervical lymphadenopathy. Cardio: Regular rate and rhythm. No murmurs, gallops, or rubs. No lower extremity edema. No JVD. Pulmonary: No respiratory distress. No accessory muscle usage. Musculoskeletal: Normal range of motion in joints throughout the body. No deformity or other signs of injury. Neuro: Alert and oriented x4. Cranial nerves 2-12 grossly intact. No focal deficits appreciated. Results Reviewed Results Reviewed: Laboratory Tests 08/21/23 10/16/23 15:50 15:00 WBC 5.6 RBC 4.00 L Hgb 12.9 Hct 38.2 ESR 7 Creatinine 0.68 AST 10 ALT 7 Total Creatine Kinase 33 C-Reactive Protein < 0.04 TSH 0.14 L Free T4 1.26 HLA-B27 Negative Assessment & Plan Assessment & Plan (1) SAIDA positive: Code(s): R76.8 - Other specified abnormal immunological findings in serum Category: Medical (2) Bilateral sacroiliitis: Code(s): M46.1 - Sacroiliitis, not elsewhere classified Category: Medical (3) Lumbar pain: Comment: recommend continued efforts with physical therapy and exercise as per PCC. Code(s): M54.50 - Low back pain, unspecified Category: Medical (4) Long-term use of immunosuppressant medication: Code(s): Z79.60 - long-term (current) use of unspecified immunomodulators and immunosuppressants Category: Medical (5) Bruising, spontaneous: Code(s): R23.3 - Spontaneous ecchymoses Category: Medical (6) Chronic pain syndrome: Code(s): G89.4 - Chronic pain syndrome Category: Medical Plan #+SAIDA: Ms. Persaud here for evaluation of +SAIDA 1:360. On initial review of history, diagnositics and physical exam, the patient does not present as having an underlying CTD or inflammatory pathology. I suspect that her history of thyroid disease may be the inciting cause for the +SAIDA. She had a thyroidectomy some year ago and is now on Levothyroxine. I have obtain ENAs and Thyroid antibodies to evaluate further and the results are that she does have positive thyroid antibodies. There is also an indeterminate result for +anti-dsDNA (5). I do not think this value is of significance at this time, and the patient does not have a clinical presentation of SLE. She has a history of low platelets so it is not unreasonable to think that this could be a prodrome to lupus. However, at this time patient has no clinical presentation on her body for ITP. We will continue to monitor. #Low back pain/Sacroiliitis: All attempts at medication, injection, therapy have not been effective per patient. If this was an inflammatory back pain, the expectation is there would be some improvement with corticosteroid injection, NSAIDs or even Prednisone which was tried. Her ESR/CRP are WNL. Imaging suggest mild OA in the lumbar and scleroisis of the SI joint. However, MRI (06/2023) did not identify marrow edema or signs of inflammation. Though her back pain seems more mechanical, I discussed with patient the option to start Leflunomide and assess for improvement. Given the tenderness of the SI joint and lower back, I thought reasonable to try an immunomodulator given this could also be non-radiographic AxSpA. HLAB27 labs were negative. Started her on leflunomide 10 mg daily for 2 weeks and then increase to 20 mg daily but she did not tolerate the medication. We will try her on gabapentin 100mg QD and reassess. We recommend taking the gabapentin and assess her tolerance and be sure not to drive soon after taking it until she is sure it is not sedating for her. I spent 25 minutes reviewing chart, evaluating patient and documenting F/u in 3 weeks. Orders: Orders Lupus Anticoagulant Panel 10/16/23 R76.8 - Other specified abnormal immunological findings in serum, R23.3 - Spontaneous ecchymoses Beta-2 Glycoprotein Antibody 10/16/23 R76.8 - Other specified abnormal immunological findings in serum, R23.3 - Spontaneous ecchymoses Cardiolipin Antibodies 10/16/23 R76.8 - Other specified abnormal immunological findings in serum, R23.3 - Spontaneous ecchymoses Complete Blood Count Auto Diff 10/16/23 R23.3 - Spontaneous ecchymoses Medications: New gabapentin 100 mg PO DAILY 30 caps 1RF G89.4 - Chronic pain syndrome Coding Level of Care Code Est Pt Level 3 (65102) Complex EM visit Add On G2211 Diagnoses SAIDA positive R76.8 Bilateral sacroiliitis M46.1 Lumbar pain M54.50 Long-term use of immunosuppressant medication Z79.60 Bruising, spontaneous R23.3 Chronic pain syndrome G89.4
[2023-10-15 10:43] VITALS: BP 98/62; PULSE 69; O2SAT 99; BMI 16.7
== END 2023-10-15 11:26 | disposition home or self-care (01) ==
PROVIDERS: PCP Internal Medicine; Visit Provider Nurse Practitioner Family
DX: R76.8 Other specified abnormal immunological findings in serum (principal); M46.1 Sacroiliitis, not elsewhere classified; M54.50 Low back pain, unspecified; Z79.60 Long term (current) use of unspecified immunomodulators and immunosuppressants; R23.3 Spontaneous ecchymoses; G89.4 Chronic pain syndrome
CPT/HCPCS: 99213; G2211

== ENCOUNTER → 2023-10-15 10:13 | Outpatient (BNVA) | payer OTHER, SELFPAY | PROVIDERS: PCP Internal Medicine; Visit Provider Nurse Practitioner Family | DX: R76.8 Other specified abnormal immunological findings in serum (principal); M46.1 Sacroiliitis, not elsewhere classified; M54.50 Low back pain, unspecified; R23.3 Spontaneous ecchymoses; G89.4 Chronic pain syndrome; E89.0 Postprocedural hypothyroidism; Z79.60 Long term (current) use of unspecified immunomodulators and immunosuppressants; Z79.899 Other long term (current) drug therapy | CPT/HCPCS: 99212 ==

== ENCOUNTER 2023-10-16 14:19 | Outpatient (REF) | payer OTHER, SELFPAY ==
[2023-10-16 15:02] LABS: MANUAL DIFF FLAG NO
[2023-10-16 15:30] LABS: Basophils Percent Auto 0.4 % (0-2); Eosinophils Absolute Auto 0.1 X10*3/uL (0.0-0.4); Eosinophils Percent Auto 0.9 % (0-4); Hematocrit 37.7 % (37.0-47.0); Hemoglobin 12.3 g/dl (12.0-16.0); Imm Gran Abs Auto 0.02 X10*3/uL (0.00-0.03); Imm Gran Pct Auto 0.3 % (0.0-0.4); Lymphocytes Absolute Auto 4.1 X10*3/uL (1.2-4.9); Lymphocytes Percent Auto 58.9 % (20-40); Mean Corpuscular HGB Conc 32.6 g/dl (31.0-35.0); Mean Corpuscular Hemoglobin 30.5 pg (27.0-33.0); Mean Corpuscular Volume 93.5 fL (80.0-98.0); Mean Platelet Volume 10.1 fL (9.4-12.3); Monocytes Absolute Auto 0.5 X10*3/uL (0.1-1.2); Monocytes Percent Auto 6.7 % (2-11); Neutrophils Absolute Auto 2.3 x10*3/uL (2.0-8.3); Neutrophils Percent Auto 32.8 % (45-73); Platelet Count 151 X10*3/uL (160-400); Red Blood Count 4.03 X10*6/uL (4.20-5.50); Red Cell Distribution Width 12.8 % (11.0-16.0)
[2023-10-16 15:58] LABS: Alanine Aminotransferase 13 U/L (0-31); Albumin Level 4.1 g/dL (3.5-5.0); Alkaline Phosphatase 50 U/L (39-117); Anion Gap 11 (12-20); Aspartate Amino Transferase 13 U/L (5-31); Bilirubin Total 0.4 mg/dL (0.0-1.0); Blood Urea Nitrogen 9 mg/dL (9-16); Calcium 9.3 mg/dL (8.4-10.2); Carbon Dioxide 22 mmol/L (22-29); Chloride 113 mmol/L (96-108); Estimated Glomerular Filt Rate > 60; Glucose Random 81 mg/dL (60-115); Potassium 3.4 mmol/L (3.3-5.1); Sodium 143 mmol/L (135-145); Total Protein 6.8 g/dL (6.5-8.0)
[2023-10-16 16:14] LABS: TSH reflex Free T4 0.14 uIU/mL (0.32-4.0)
[2023-10-16 16:47] LABS: Free T4 (Free Thyroxine) 1.26 ng/dL (0.71-1.85)
[2023-10-17 19:38] LABS: LDL Cholesterol Direct 58 mg/dL (<100)
[2023-10-17 21:33] LABS: Cardiolipin IgG Ab <2.0 GPL-U/mL; Cardiolipin IgM Ab <2.0 MPL-U/mL
[2023-10-19 18:03] LABS: HLA B27 Negative (Negative)
[2023-10-23 18:13] LABS: Beta-2 Glycoprotein IgA <2.0 U/mL (<20.0); Beta-2 Glycoprotein IgG <2.0 U/mL (<20.0); Beta-2 Glycoprotein IgM <2.0 U/mL (<20.0); PTT (LAC) Screen 36 sec (<=40)
== END 2023-10-16 14:20 | disposition home or self-care (01) ==
LOC: HO.LAB 14:19
PROVIDERS: Absent Provider Internal Medicine; Visit Provider Nurse Practitioner Family
DX: R76.8 Other specified abnormal immunological findings in serum (principal); R23.3 Spontaneous ecchymoses; E03.8 Other specified hypothyroidism; D64.9 Anemia, unspecified; M54.50 Low back pain, unspecified
CPT/HCPCS: 36415; 80053; 83721; 84439; 84443; 85025; 85597; 85598; 85613; 85730; 86146; 86147; 86812

== ENCOUNTER 2023-11-18 10:33 | Outpatient (AMB) | payer OTHER, SELFPAY ==
[2023-11-18 10:44] VITALS: BP 104/62; PULSE 74; O2SAT 99; BMI 17.6
--- NOTE | 2023-11-18 10:44 | A.OFFVIS_ITS ---
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 She says she felt worse taking the Leflunomide and did not tolerate well due to abdominal pain. She says she also had more si joint pain while taking it. The gabapentin also made her more sleepy Initial history 07/09/2023: Hung Johnson is a 23-year-old female patient who presents, accompanied by her father, for evaluation of +SAIDA, lower back and SI joint pain. She has a history of Thyroid disease, asthma. She has been complaining of lower back pin since March 2023. 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 She follows with [facility], taken diclofenac or uses topical, gel and received injections but nothing has helped. She has done xrays and MRI of the lower back. She has had her thyroid removed an is on replacement therapy. She denies red burning eyes, rashes, tendinitis, chronic diarrhea, mucous or blood in stool. Patient denies mouth sores, excessive fatigue, sun sensitivity, raynaud's and pain to other joints. She denies red, warm swollen joints. [facility] Medical History (Updated 11/18/23 @ 11:13 [facility] Low platelet count Chronic pain syndrome Bruising, spontaneous Lupus Long-term use of immunosuppressant medication Bilateral chronic knee pain Hypothyroid Asthma Surgical History S/P removal of thyroid nodule Family History Maternal Aunt Breast cancer Paternal Aunt Leukemia Mother No problems noted. Father No problems noted. Paternal Aunt Lupus Social History Housing: House Alcohol intake: never Patient Tobacco Use Status: Never used Tobacco e-Cigarette/Vaping Use: Never Used Substance Use Type: Marijuana service: No Current occupational status: unemployed Sexual orientation: Straight/Heterosexual Gender identity: Female Cognitive needs: No Hearing needs: No Vision needs: Yes Female Reproductive History Menstrual Age of Menarche: 11 Review of Systems Const All systems reviewed & are unremarkable except as noted in HPI and below Physical Exam Vital Signs: Last Vital Signs Pulse 74 11/18/23 10:44 BP 104/62 11/18/23 10:44 Pulse Ox 99 11/18/23 10:44 Oxygen Delivery Method Room Air 11/18/23 10:44 BMI result Body Mass Index 17.6 Vital signs reviewed. Constitutional: Non-toxic appearing. No acute distress. Well-developed and well-nourished. HEENT: Normocephalic and atraumatic. External auditory canals without erythema or edema bilaterally. Skin: Warm and dry. No rashes or lesions noted. Neck: Full and painless range of motion. No cervical lymphadenopathy. Cardio: Regular rate and rhythm. No murmurs, gallops, or rubs. No lower extremity edema. No JVD. Pulmonary: No respiratory distress. No accessory muscle usage. Musculoskeletal: Normal range of motion in joints throughout the body. No deformity or other signs of injury. Neuro: Alert and oriented x4. Cranial nerves 2-12 grossly intact. No focal deficits appreciated. Assessment & Plan Assessment & Plan (1) Bruising, spontaneous: Code(s): R23.3 - Spontaneous ecchymoses Category: Medical (2) Low platelet count: Code(s): D69.6 - Thrombocytopenia, unspecified Category: Medical (3) SAIDA positive: Code(s): R76.8 - Other specified abnormal immunological findings in serum Category: Medical (4) Bilateral sacroiliitis: Code(s): M46.1 - Sacroiliitis, not elsewhere classified Category: Medical (5) Lumbar pain: Comment: recommend continued efforts with physical therapy and exercise as per PCC. 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 Persaud here for evaluation of +SAIDA 1:360. On initial review of history, diagnositics and physical exam, the patient does not present as having an underlying CTD or inflammatory pathology. I suspect that her history of thyroid disease may be the inciting cause for the +SAIDA. She had a thyroidectomy some year ago and is now on Levothyroxine. I have obtain ENAs and Thyroid antibodies to evaluate further and the results are that she does have positive thyroid antibodies. There is also an indeterminate result for +anti-dsDNA (5). I do not think this value is of significance at this time, and the patient does not have a clinical presentation of SLE. She has a history of low platelets so it is not unreasonable to think that this could be a prodrome to lupus. However, at this time the patient has no clinical presentation on her body for ITP. However, the bruising is recurring so the patient may benefit from a heme consult. #Low back pain/Sacroiliitis: All attempts at medication, injection, therapy have not been effective per patient. If this was an inflammatory back pain, the expectation is there would be some improvement with corticosteroid injection, NSAIDs or even Prednisone which was tried. Her ESR/CRP are WNL. Imaging suggest mild OA in the lumbar and scleroisis of the SI joint. In addition, MRI (06/2023) did not identify marrow edema or signs of inflammation. Though her back pain seems more mechanical, I discussed with patient the option to start Leflunomide and assess for improvement. Given the tenderness of the SI joint and lower back, I thought reasonable to try an immunomodulator given this could also be non-radiographic AxSpA. HLAB27 labs were negative. Started her on leflunomide 10 mg daily for 2 weeks and then increase to 20 mg daily but she did not tolerate the medication. We tried her on gabapentin 100mg QD. We recommend taking the gabapentin and assess her tolerance and be sure not to drive soon after taking it until she is sure it is not sedating for her. However, it made her drowsy. I spent 15 minutes reviewing chart, evaluating patient and documenting F/u as needed. At this point I do no think there is more for us to evaluate for this patient. The patient agrees. Orders: Referrals Hematology & Oncology Referral D69.6 - Thrombocytopenia, unspecified, R23.3 - Spontaneous ecchymoses Coding Level of Care Code Est Pt Level 2 (46337) Diagnoses Bruising, spontaneous R23.3 Low platelet count D69.6 SAIDA positive R76.8 Bilateral sacroiliitis M46.1 Lumbar pain M54.50 Long-term use of immunosuppressant medication Z79.60 Chronic pain syndrome G89.4
== END 2023-11-18 11:29 | disposition home or self-care (01) ==
PROVIDERS: PCP Internal Medicine; Visit Provider Nurse Practitioner Family
DX: D69.6 Thrombocytopenia, unspecified (principal); R76.8 Other specified abnormal immunological findings in serum; M46.1 Sacroiliitis, not elsewhere classified; M54.50 Low back pain, unspecified; Z79.60 Long term (current) use of unspecified immunomodulators and immunosuppressants; G89.4 Chronic pain syndrome
CPT/HCPCS: 99213

== ENCOUNTER → 2023-11-18 10:33 | Outpatient (BNVA) | payer OTHER, SELFPAY | PROVIDERS: PCP Internal Medicine; Visit Provider Nurse Practitioner Family | DX: R23.3 Spontaneous ecchymoses (principal); R76.8 Other specified abnormal immunological findings in serum; D69.6 Thrombocytopenia, unspecified; M46.1 Sacroiliitis, not elsewhere classified; M54.50 Low back pain, unspecified; G89.4 Chronic pain syndrome; Z79.60 Long term (current) use of unspecified immunomodulators and immunosuppressants | CPT/HCPCS: 99212 ==

== ENCOUNTER 2023-12-04 14:02 | Outpatient (AMB) | payer OTHER, SELFPAY ==
[2023-12-04 14:13] VITALS: BMI 17.0
--- NOTE | 2023-12-04 14:13 | AM.OFFVISNUR ---
Vital Signs 12/04/23 14:13 Height 4 ft 11 in Weight 38.272 kg BMI 17.0 Intake Visit Reasons: DEPO Allergies doxycycline Allergy (Unknown, Verified 11/18/23 10:50) Nausea and Vomiting Nursing Note Simeon is here today for her Depo-provera inj. She had some spotting a few days ago. No other complaints offered. Pt tolerated inj well. Follow up in 12 wks. Office Procedures Depo Questionnaire If YES to any of the following questions, please consult a provider. Date of last injection: 09/18/23 Date of last menstrual period: 12/01/23 Date of last gynecology exam: 04/15/23 Menstrual pattern since last injection has been: Light Irregular bleeding?: No Breast lumps or other breast changes?: No Changes in weight or appetite?: No Depression or changes in mood?: No Abnormal hair growth or loss?: No Skin problems (rash, acne, discoloration)?: No Pain at the injection site?: No Headaches?: No Nervousness?: No Abdominal pain or cramping?: No Dizziness or nausea?: No Fatigue or weakness?: No Decrease in sexual drive?: No Chest pain or shortness of breath?: No Swelling in arms or legs?: No Form completed by?: Rajiv Sanabria LPN Office Meds Depo-Provera 150 mg/mL intramuscular syringe Performing Provider: Purnima Harvey CNM Performing Location: [facility] [place] [facility] Administered by: Anita Sanabria LPN on 12/04/23 14:32 Dose Route Admin Location Dispensed Lot Number Expiration Date [facility] 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
== END 2023-12-04 14:10 | disposition home or self-care (01) ==
LOC: HO.HWS 14:02
PROVIDERS: PCP Internal Medicine; Visit Provider Advanced Practice Midwife
DX: Z78.9 Other specified health status (principal)

== ENCOUNTER → 2023-12-04 14:02 | Outpatient (BNVA) | payer OTHER, SELFPAY | PROVIDERS: PCP Internal Medicine; Visit Provider Advanced Practice Midwife | DX: Z30.42 Encounter for surveillance of injectable contraceptive (principal) | CPT/HCPCS: 96372; 99211; J1050 ==

== ENCOUNTER → 2023-12-13 11:25 | Outpatient (BNV) | payer OTHER, SELFPAY | PROVIDERS: PCP Internal Medicine; Referring Provider Nurse Practitioner Family; Visit Provider Internal Medicine Medical Oncology | DX: D69.6 Thrombocytopenia, unspecified (principal) | CPT/HCPCS: 99204 ==

== ENCOUNTER 2024-01-08 09:39 | Outpatient (AMB) | payer OTHER, SELFPAY ==
[2024-01-08 09:53] VITALS: BP 102/72; PULSE 62; O2SAT 98; BMI 17.8
--- NOTE | 2024-01-08 09:53 | MHC.PC.OV ---
Vital Signs 01/08/24 09:53 Height 4 ft 11 in Weight 88 lb 6 oz BMI 17.8 BP 102/72 Blood Pressure Location Lt brachial Position Sitting Pulse 62 Pulse Source Pulse Oximeter Pulse Oximetry (%) 98 Oxygen Delivery Method Room Air Intake Visit Reasons: 4 month follow up Asthma Allergies doxycycline Allergy (Unknown, Verified 01/08/24 09:56) Nausea and Vomiting Medication List - Last Reconciled 01/08/24 by Chance Lynn MD acetaminophen 500 mg PO ONCE PRN albuterol sulfate 90 mcg/actuation (ProAir HFA) 1 inh inhalation QID PRN 30 days amitriptyline 10 mg PO BEDTIME chlorhexidine gluconate 0.12% 0.12 appl PO DAILY fluoride (sodium) 1.1% (Denta 5000 Plus) 5,000 appl PO DAILY levothyroxine 100 mcg PO DAILY 90 days medroxyprogesterone (Depo-Provera) 150 mg IM Q12W sumatriptan succinate 25 mg PO ONCE PRN 30 days Symbicort 160-4.5 mcg/actuation (budesonide-formoterol) 1 inh inhalation DAILY 30 days NS Tobacco use date assessed: 01/08/24 Dental Screening Dental Screen Date: 01/08/24 Did you have a dental visit in the last 12 months?: Yes Did you have a dental problem in the last 6 months where you did not have access to dental care?: No Was dental information given to patient?: Patient has dentist HPI 4 month follow up Asthma HPI Details Patient is a 23-year-old female came in today for her regular follow-up Patient is having difficulty gaining weight, she has no appetite She is requesting a script for ensure, we will address that She is SAIDA positive and has been evaluated by Rheumatology but no treatment was provided as per patient She would like to have a 2nd opinion at [facility] and has appointment coming up. She was referred to Hematology because she was complaining of easy bruising and her platelet is slightly low Hematology evaluated the patient and send her back to rheumatology. Migraine headache: Amitriptyline 10 mg was started which does help with sleep but headaches are still there I am increasing the dose to 25 mg, sumatriptan 25 mg increased to 50 mg as well. Asthma: Stable with Symbicort refill provided Hypothyroidism: TSH level came back low in October at 0.14, levothyroxine was reduced to 100 mcg She is due for repeat TSH checked today Follow-up 2 months [facility] Medical History Low platelet count Chronic pain syndrome Bruising, spontaneous Lupus Long-term use of immunosuppressant medication Bilateral chronic knee pain Hypothyroid Asthma Surgical History S/P removal of thyroid nodule Family History Maternal Aunt Breast cancer Paternal Aunt Leukemia Mother No problems noted. Father No problems noted. Paternal Aunt Lupus Social History Household Members: Family Housing: House Alcohol intake: never Patient Tobacco Use Status: Never used Tobacco e-Cigarette/Vaping Use: Never Used Substance Use Type: Marijuana service: No Current occupational status: unemployed Sexual orientation: Straight/Heterosexual Gender identity: Female Cognitive needs: No Hearing needs: No Vision needs: Yes Female Reproductive History Menstrual Age of Menarche: 11 Questionnaire PHQ-9 Over the last 2 weeks, how often have you been bothered by any of the following problems? 1. Little interest or pleasure in doing things: not at all 2. Feeling down, depressed, or hopeless: not at all 3. Trouble falling or staying asleep, or sleeping too much: more than half the days 4. Feeling tired or having little energy: several days 5. Poor appetite or overeating: more than half the days 6. Feeling bad about yourself - or that you are a failure or have let yourself or your family down: not at all 7. Trouble concentrating on things, such as reading the newspaper or watching television: not at all 8. Moving or speaking so slowly that other people could have noticed. Or the opposite - being so fidgety or restless that you have been moving around a lot more than usual: not at all 9. Thoughts that you would be better off or of hurting yourself in some way: not at all Total score: 5 Depression Screening Interpretation: Negative Depression Screening Done: Yes 57555 - PHQ-9 Billing: Yes Source: Developed by Drs. Luis Manuel Nash, Edith BJose Alvarez and colleagues, with an educational ez from [employer]. Thrive Questionnaire Date Thrive assessed: 01/08/24 I am a: Patient What is your living situation today?: I have a steady place to live Within the past 12 months, did the food you bought not last and you didn't have the money to get more?: Never true Within the past 12 months, did you worry whether your food would run out before you got money to buy more?: Never true Do you have trouble paying for medicines?: No Do you have trouble getting transportation to medical appointments?: No Do you have trouble paying your heating and electricity bill?: No Do you have trouble taking care of your child, family member or friend?: No Do you have trouble with day-to-day activities such as bathing, preparing meals, shopping, managing finances, etc.?: Yes Are you currently unemployed and looking for a job?: No Are you interested in more education?: No Please select the resources that you would like help with: Housing/Senior Care Currently or been in a relationship where the following occur: No concerns reported THRIVE Score: 0 AUDIT C Alcohol Use Questionnaire (AUDIT-C) 1. How often do you have a drink containing alcohol?: Never 3. How often do you have six or more drinks on one occasion?: Never Total Score: 0 Score Reviewed/Action Taken: Yes KAROL-7 AMB Questionnaire KAROL-7 Date KAROL - 7 assessed: 01/08/24 Feeling nervous, anxious, or on edge: 0 = Not at all Not being able to stop or control worryin = Not at all Worrying too much about different things: 0 = Not at all Trouble relaxin = Not at all Being so restless that it is hard to sit still: 0 = Not at all Becoming easily annoyed or irritable: 0 = Not at all Feeling afraid as if something awful might happen: 0 = Not at all Total KAROL-7 score (0-4 normal; 5-9 mild; 10-14 moderate; 15-21 severe): 0 Source: Developed by Drs. Luis Manuel Nash, Jose Waldron and colleagues, with an educational ez from [employer]. KAROL-7 Assessment Billing KAROL-7 Assessment Tool: KAROL-7 Assessment 79331 Review of Systems Const Denies chills and Denies fever(s) ENT Denies epistaxis and Denies nasal discharge Card Denies chest pain Resp Denies chest congestion, Denies cough and Denies hemoptysis GI Denies diarrhea and Denies nausea Skin/Breast Denies rash Neuro Reports no additional complaints Psych Reports no additional complaints Endo Reports no additional complaints Physical exam (Primary Care) Vital Signs: Last Vital Signs Pulse 62 01/08/24 09:53 BP 102/72 01/08/24 09:53 Pulse Ox 98 01/08/24 09:53 Oxygen Delivery Method Room Air 01/08/24 09:53 BMI result Body Mass Index 17.8 Tobacco/Smoking Status: Tobacco use Status Tobacco use date assessed 01/08/24 01/08/24 09:54 Patient Tobacco Use Status Never used Tobacco 01/08/24 09:54 e-Cigarette/Vaping Use Never Used 01/08/24 09:54 PHQ-9: PHQ-9 Score PHQ-9: Total score 5 01/08/24 10:37 Depression Screening Interpretation: Negative Thrive Assessment: Date of Thrive Assessment Date Thrive assessed 01/08/24 01/08/24 09:57 Currently or been in a relationship where the following occur: No concerns reported Const General: cooperative, comfortable and no acute distress Orientation/consciousness: patient oriented x3 HENMT Head: Yes normocephalic Eyes General: appearance normal, both eyes and all related structures Neck Neck: Yes supple Resp Effort & Inspection: normal respiratory effort, no cough and no stridor Cardio Rhythm: regular rhythm Heart sounds: S1 normal heart sound present and S2 normal heart sound present Skin General skin exam: turgor normal Neuro General: patient oriented x3, tone normal and moves all extremities Extrem Right lower extremity: no edema Left lower extremity: no edema Assessment and Plan Assessment & Plan (1) Low TSH level: Code(s): R79.89 - Other specified abnormal findings of blood chemistry (2) Other specified hypothyroidism: Code(s): E03.8 - Other specified hypothyroidism (3) Asthma, moderate persistent: Code(s): J45.40 - Moderate persistent asthma, uncomplicated Qualifiers: Asthma complication type: uncomplicated Qualified Code(s): J45.40 - Moderate persistent asthma, uncomplicated (4) Migraine headache: Code(s): G43.909 - Migraine, unspecified, not intractable, without status migrainosus Qualifiers: Intractability: intractable Migraine type: unspecified Status migrainosus presence: without status migrainosus Qualified Code(s): G43.919 - Migraine, unspecified, intractable, without status migrainosus (5) Muscle soreness: Code(s): M79.10 - Myalgia, unspecified site (6) SAIDA positive: Code(s): R76.8 - Other specified abnormal immunological findings in serum (7) Arthrosis: Code(s): M19.90 - Unspecified osteoarthritis, unspecified site (8) Thrombocytopenia: Code(s): D69.6 - Thrombocytopenia, unspecified (9) Underweight due to inadequate caloric intake: Code(s): R63.6 - Underweight Plan Patient is a 23-year-old female came in today for her regular follow-up Patient is having difficulty gaining weight, she has no appetite She is requesting a script for ensure, we will address that She is SAIDA positive and has been evaluated by Rheumatology but no treatment was provided as per patient She would like to have a 2nd opinion at [facility] and has appointment coming up. She was referred to Hematology because she was complaining of easy bruising and her platelet is slightly low Hematology evaluated the patient and send her back to rheumatology. Migraine headache: Amitriptyline 10 mg was started which does help with sleep but headaches are still there I am increasing the dose to 25 mg, sumatriptan 25 mg increased to 50 mg as well. Asthma: Stable with Symbicort refill provided Hypothyroidism: TSH level came back low in October at 0.14, levothyroxine was reduced to 100 mcg She is due for repeat TSH checked today Follow-up 2 months 45 minute spent in care of this patient including reviewing the chart [id number] with the patient and addressing script/charting Orders: Orders TSH reflex Free T4 Today R79.89 - Other specified abnormal findings of blood chemistry Medications: New cholecalciferol (vitamin D3) 25 mcg PO DAILY 90 caps 1RF 90 days multivitamin (One Daily Multivitamin tablet) 1 tab PO DAILY 90 tabs 3RF [Boost] 1 unit PO DAILY 30 multiple units 11RF R63.6 - Underweight Changed From amitriptyline 10 mg PO BEDTIME 30 tabs 0RF To amitriptyline 25 mg PO BEDTIME 90 tabs 0RF 90 days From sumatriptan succinate At the onset of migraine headache with 1 naproxen 25 mg PO ONCE 30 days PRN 14 tabs 0RF migraine headache To sumatriptan succinate At the onset of migraine headache with 1 naproxen 50 mg PO ONCE PRN 14 tabs 0RF migraine headache 30 days Coding Level of Care Code Est Pt Level 5 (23267) Complex EM visit Add On G2211 Diagnoses Low TSH level R79.89 Other specified hypothyroidism E03.8 Moderate persistent asthma without complication J45.40 Asthma complication type: uncomplicated Intractable migraine without status migrainosus, unspecified migraine type G43.919 Intractability: intractable Migraine type: unspecified Status migrainosus presence: without status migrainosus Muscle soreness M79.10 SAIDA positive R76.8 Arthrosis M19.90 Thrombocytopenia D69.6 Underweight due to inadequate caloric intake R63.6 Additional Codes KAROL-7 Assessment Billing - KAROL-7 Assessment Tool: KAROL-7 Assessment 56104 ([id number])
== END 2024-01-08 10:25 | disposition home or self-care (01) ==
PROVIDERS: PCP Internal Medicine; Visit Provider Internal Medicine
DX: J45.40 Moderate persistent asthma, uncomplicated (principal); D69.6 Thrombocytopenia, unspecified; E03.8 Other specified hypothyroidism; G43.919 Migraine, unspecified, intractable, without status migrainosus; M79.10 Myalgia, unspecified site; R76.8 Other specified abnormal immunological findings in serum; M19.90 Unspecified osteoarthritis, unspecified site; R63.6 Underweight
CPT/HCPCS: 99215; G2211

== ENCOUNTER 2024-01-08 10:23 | Outpatient (REF) | payer OTHER, SELFPAY ==
[2024-01-08 13:23] LABS: MANUAL DIFF FLAG NO
[2024-01-08 13:33] LABS: Basophils Percent Auto 0.7 % (0-2); Eosinophils Absolute Auto 0.1 X10*3/uL (0.0-0.4); Eosinophils Percent Auto 1.1 % (0-4); Hematocrit 38.9 % (37.0-47.0); Hemoglobin 12.9 g/dl (12.0-16.0); Imm Gran Abs Auto 0.01 X10*3/uL (0.00-0.03); Imm Gran Pct Auto 0.2 % (0.0-0.4); Lymphocytes Absolute Auto 1.9 X10*3/uL (1.2-4.9); Lymphocytes Percent Auto 41.7 % (20-40); Mean Corpuscular HGB Conc 33.2 g/dl (31.0-35.0); Mean Corpuscular Hemoglobin 31.8 pg (27.0-33.0); Mean Corpuscular Volume 95.8 fL (80.0-98.0); Mean Platelet Volume 10.1 fL (9.4-12.3); Monocytes Absolute Auto 0.3 X10*3/uL (0.1-1.2); Monocytes Percent Auto 6.4 % (2-11); Neutrophils Absolute Auto 2.3 x10*3/uL (2.0-8.3); Neutrophils Percent Auto 49.9 % (45-73); Platelet Count 162 X10*3/uL (160-400); Red Blood Count 4.06 X10*6/uL (4.20-5.50); Red Cell Distribution Width 14.1 % (11.0-16.0); White Blood Count 4.5 X10*3/uL (4.8-10.8)
[2024-01-08 14:19] LABS: TSH reflex Free T4 48.48 uIU/mL (0.32-4.0)
[2024-01-08 14:49] LABS: Free T4 (Free Thyroxine) 0.79 ng/dL (0.71-1.85)
== END 2024-01-08 10:24 | disposition home or self-care (01) ==
LOC: HO.HMGCLDS 10:23
PROVIDERS: PCP Internal Medicine; Visit Provider Internal Medicine
DX: E03.8 Other specified hypothyroidism (principal); D64.9 Anemia, unspecified; M54.50 Low back pain, unspecified; R79.89 Other specified abnormal findings of blood chemistry
CPT/HCPCS: 36415; 84439; 84443; 85025

== ENCOUNTER 2024-03-11 09:16 | Outpatient (AMB) | payer OTHER, SELFPAY ==
[2024-03-11 09:32] VITALS: BP 100/66; PULSE 79; O2SAT 98; BMI 18.6
--- NOTE | 2024-03-11 09:32 | A.OFFPC_ITS ---
Vital Signs 3 03/11/24 09:32 Height 4 ft 11 in Weight 92 lb 2 oz BMI 18.6 BP 100/66 Blood Pressure Location Rt brachial Position Sitting Pulse 79 Pulse Source Pulse Oximeter Pulse Oximetry (%) 98 Oxygen Delivery Method Room Air Intake Visit Reasons: 2 month f/u Allergies doxycycline Allergy (Unknown, Verified 03/11/24 09:39) Nausea and Vomiting Medication List - Last Reconciled 03/11/24 by Chance Lynn MD acetaminophen 500 mg PO ONCE PRN albuterol sulfate 90 mcg/actuation (ProAir HFA) 1 inh inhalation QID PRN 30 days amitriptyline 25 mg PO BEDTIME 90 days [Boost 1 unit PO DAILY] chlorhexidine gluconate 0.12% 0.12 appl PO DAILY cholecalciferol (vitamin D3) 25 mcg PO DAILY 90 days fluoride (sodium) 1.1% (Denta 5000 Plus) 5,000 appl PO DAILY levothyroxine 125 mcg PO DAILY 90 days multivitamin (One Daily Multivitamin tablet) 1 tab PO DAILY sumatriptan succinate 50 mg PO ONCE PRN 30 days Symbicort 160-4.5 mcg/actuation (budesonide-formoterol) 1 inh inhalation DAILY 30 days NS Tobacco use date assessed: 03/11/24 Dental Screening Dental Screen Date: 03/11/24 Did you have a dental visit in the last 12 months?: Yes Did you have a dental problem in the last 6 months where you did not have access to dental care?: No Was dental information given to patient?: Patient has dentist HPI 2 month f/u 2 HPI0 Details Patient is 23-year-old female came in for 2 month follow-up appointment Patient has seen [facility] rheumatology and workup is in progress She wanted 2nd opinion after seeing a elocution teacher at [facility] As she continued to have pain all over her body Patient says that couple of days ago she was moving a table which fell on her ankle left side She is having pain in her aspect of ankle On examination she has ecchymosis around medial malleolus that is where it is tender to pressure But range of motion of ankle is intact neurovascular is intact At this point which is going to let it heal on its own, if still having pain in 2 weeks patient will get back to me Her thyroid medication was adjusted, she was supposed to have labs done before this visit but she forgot Patient will go and have labs done night now Amitriptyline higher dose did not help her with body pain so she stopped She is off Depo shots, patient says that since she has stopped the Depo injections Her breasts feels very sore, and also she has been having itching vaginally On examination it seems as if patient has developed a yeast infection I have sent nystatin cream for the patient to use as needed. [facility] Medical History Low platelet count Chronic pain syndrome Bruising, spontaneous Lupus Long-term use of immunosuppressant medication Bilateral chronic knee pain Hypothyroid Asthma Surgical History S/P removal of thyroid nodule Family History Maternal Aunt Breast cancer Paternal Aunt Leukemia Mother No problems noted. Father No problems noted. Paternal Aunt Lupus Social History Household Members: Family Housing: House Alcohol intake: never Patient Tobacco Use Status: Never used Tobacco e-Cigarette/Vaping Use: Never Used Substance Use Type: Marijuana service: No Current occupational status: unemployed Sexual orientation: Straight/Heterosexual Gender identity: Female Cognitive needs: No Hearing needs: No Vision needs: Yes Female Reproductive History Menstrual Age of Menarche: 11 Questionnaire Thrive Questionnaire Date Thrive assessed: 03/11/24 I am a: Patient What is your living situation today?: I have a steady place to live Within the past 12 months, did the food you bought not last and you didn't have the money to get more?: Never true Within the past 12 months, did you worry whether your food would run out before you got money to buy more?: Never true Do you have trouble paying for medicines?: No Do you have trouble getting transportation to medical appointments?: No Do you have trouble paying your heating and electricity bill?: No Do you have trouble taking care of your child, family member or friend?: No Do you have trouble with day-to-day activities such as bathing, preparing meals, shopping, managing finances, etc.?: Yes Are you currently unemployed and looking for a job?: No Are you interested in more education?: No Please select the resources that you would like help with: None Currently or been in a relationship where the following occur: No concerns reported THRIVE Score: 0 AUDIT C Alcohol Use Questionnaire (AUDIT-C) 1. How often do you have a drink containing alcohol?: Never 3. How often do you have six or more drinks on one occasion?: Never Total Score: 0 Score Reviewed/Action Taken: Yes KAROL-7 AMB Questionnaire KAROL-7 Date KAROL - 7 assessed: 01/08/24 Source: Developed by Drs. Luis Manuel Nash, Edith Fan, Jose Doran and colleagues, with an educational ez from [employer]. Review of Systems Const Denies chills and Denies fever(s) ENT Denies epistaxis and Denies nasal discharge Card Denies chest pain Resp Denies chest congestion, Denies cough and Denies hemoptysis GI Denies diarrhea and Denies nausea Skin/Breast Denies rash Neuro Reports no additional complaints Psych Reports no additional complaints Endo Reports no additional complaints Physical exam (Primary Care) Vital Signs: Last Vital Signs Pulse 79 03/11/24 09:32 BP 100/66 03/11/24 09:32 Pulse Ox 98 03/11/24 09:32 Oxygen Delivery Method Room Air 03/11/24 09:32 BMI result Body Mass Index 18.6 Tobacco/Smoking Status: Tobacco use Status Tobacco use date assessed 03/11/24 03/11/24 09:41 Patient Tobacco Use Status Never used Tobacco 03/11/24 09:38 e-Cigarette/Vaping Use Never Used 03/11/24 09:38 Thrive Assessment: Date of Thrive Assessment Date Thrive assessed 03/11/24 03/11/24 09:41 Currently or been in a relationship where the following occur: No concerns reported Const General: cooperative, comfortable and no acute distress Orientation/consciousness: patient oriented x3 HENMT Head: Yes normocephalic Eyes General: appearance normal, both eyes and all related structures Neck Neck: Yes supple Resp Effort & Inspection: normal respiratory effort, no cough and no stridor Cardio Rhythm: regular rhythm Heart sounds: S1 normal heart sound present and S2 normal heart sound present Other: White discharge in vagina and around Skin General skin exam: turgor normal Neuro General: patient oriented x3, tone normal and moves all extremities Extrem Right lower extremity: no edema Left lower extremity: no edema Ankle/foot/toe images: 2 1. Ecchymosis and site of pain, neurovascular intact, ankle has full range of motion Coding Level of Care Code Est Pt Level 4 (45113) Complex EM visit Add On G2211 Diagnoses Injury of left ankle, initial encounter S99.912A Encounter type: initial encounter Traumatic ecchymosis T14.8XXA Acute vaginitis N76.0 Chronicity: acute Other specified hypothyroidism E03.8 Assessment & Plan Assessment & Plan (1) Left ankle injury: Code(s): S99.912A - Unspecified injury of left ankle, initial encounter Category: Medical Qualifiers: Encounter type: initial encounter Qualified Code(s): S99.912A - Unspecified injury of left ankle, initial encounter (2) Traumatic ecchymosis: Code(s): T14.8XXA - Other injury of unspecified body region, initial encounter Category: Medical (3) Vaginitis: Code(s): N76.0 - Acute vaginitis Category: Medical Qualifiers: Chronicity: acute Qualified Code(s): N76.0 - Acute vaginitis (4) Other specified hypothyroidism: Code(s): E03.8 - Other specified hypothyroidism Category: Medical Plan Patient is 23-year-old female came in for 2 month follow-up appointment Patient has seen [facility] rheumatology and workup is in progress She wanted 2nd opinion after seeing a elocution teacher at [facility] As she continued to have pain all over her body Patient says that couple of days ago she was moving a table which fell on her ankle left side She is having pain in her aspect of ankle On examination she has ecchymosis around medial malleolus that is where it is tender to pressure But range of motion of ankle is intact neurovascular is intact At this point which is going to let it heal on its own, if still having pain in 2 weeks patient will get back to me Her thyroid medication was adjusted, she was supposed to have labs done before this visit but she forgot Patient will go and have labs done night now Amitriptyline higher dose did not help her with body pain so she stopped She is off Depo shots, patient says that since she has stopped the Depo injections Her breasts feels very sore, and also she has been having itching vaginally On examination it seems as if patient has developed a yeast infection I have sent nystatin cream for the patient to use as needed. Medications: New 2 nystatin 1 appl topical DAILY 30 grams 1RF 30 days Discontinued 2 medroxyprogesterone (Depo-Provera) Needs to restart at the beginning of the next full menses, with negative test Discontinued Reason: Doctor's Order 150 mg IM Q12W 1 mL 5RF
== END 2024-03-11 10:00 | disposition home or self-care (01) ==
PROVIDERS: PCP Internal Medicine; Visit Provider Internal Medicine
DX: S99.912A Unspecified injury of left ankle, initial encounter (principal); T14.8XXA Other injury of unspecified body region, initial encounter; N76.0 Acute vaginitis; E03.8 Other specified hypothyroidism

== ENCOUNTER → 2024-03-11 09:16 | Outpatient (BNVA) | payer OTHER, SELFPAY | PROVIDERS: PCP Internal Medicine; Visit Provider Internal Medicine | DX: S99.912D Unspecified injury of left ankle, subsequent encounter (principal); N76.0 Acute vaginitis; E03.8 Other specified hypothyroidism | CPT/HCPCS: 99212 ==

== ENCOUNTER 2024-03-11 10:01 | Outpatient (REF) | payer OTHER, SELFPAY ==
[2024-03-11 14:27] LABS: TSH reflex Free T4 3.27 uIU/mL (0.32-4.0)
== END 2024-03-11 10:02 | disposition home or self-care (01) ==
LOC: HO.HMGCLDS 10:01
PROVIDERS: PCP Internal Medicine; Visit Provider Internal Medicine
DX: R79.89 Other specified abnormal findings of blood chemistry (principal)
CPT/HCPCS: 36415; 84443

== ENCOUNTER 2024-05-26 09:53 | Outpatient (AMB) | payer OTHER, SELFPAY ==
--- NOTE | 2024-05-26 09:53 | A.OFFVIS_ITS ---
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 Silk Worker Required: No Silk Worker Services: Silk Worker Present Information Interpreted: clinical only Telecommunications Engineer: Telecommunications Engineer Present Allergies doxycycline Allergy (Unknown, Verified 05/26/24 09:59) Nausea and Vomiting Medication List - Last Reconciled 05/26/24 by Purnima Harvey CNM acetaminophen 500 mg PO ONCE PRN albuterol sulfate 90 mcg/actuation (ProAir HFA) 1 inh inhalation QID PRN 30 days amitriptyline 25 mg PO BEDTIME 90 days [Boost 1 unit PO DAILY] chlorhexidine gluconate 0.12% 0.12 appl PO DAILY cholecalciferol (vitamin D3) 25 mcg PO DAILY 90 days fluoride (sodium) 1.1% (Denta 5000 Plus) 5,000 appl PO DAILY levothyroxine 125 mcg PO DAILY 90 days multivitamin (One Daily Multivitamin tablet) 1 tab PO DAILY nystatin 1 appl topical DAILY 30 days sumatriptan succinate 50 mg PO ONCE PRN 30 days Symbicort 160-4.5 mcg/actuation (budesonide-formoterol) 1 inh inhalation DAILY 30 days NS Is last menstrual period known: Yes Last menstrual period: 05/11/24 HPI HPI 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 She is not contraceptive thing might now she is open to . She stopped the Depo last winter because it was contributing her losing weight. She has lupus and she is always been underweight she also has thyroid issues she sees her primary care provider to manage her thyroid issues. And she sees Rheumatology Dr. Palomares at [facility] to manage her lupus she says that they are still doing tests trying to figure things out but that things are sort is stable right now. Her children are 4 and 6. She has been on vitamins but she finds them hard to swallow she was able to take gummy vitamins when she was but she was younger then, and they were covered by her insurance She used a lubricant for sex somewhat recently and it caused a rash on her vagina and it is still very irritated she said she told her primary about it and she gave her nystatin but it did not really help. She got a little relief from using vitamin a and D ointment recently but she was scratching last night.. Her periods returned in April but they have not been regular yet her periods April lasted 9 days and then she got spotting on May 11 and then the next day bled a little bit more and then by the day it was just spotting. [facility] Medical History (Updated 05/26/24 @ 10:59 by Purnima Harvey CNM) Low platelet count Chronic pain syndrome Bruising, spontaneous Lupus Long-term use of immunosuppressant medication Bilateral chronic knee pain Hypothyroid Asthma Surgical History S/P removal of thyroid nodule Family History Maternal Aunt Breast cancer Paternal Aunt Leukemia Mother No problems noted. Father No problems noted. Paternal Aunt Lupus Social History Household Members: Family Housing: House Alcohol intake: never Patient Tobacco Use Status: Never used Tobacco e-Cigarette/Vaping Use: Never Used Substance Use Type: Marijuana service: No Current occupational status: unemployed Sexual orientation: Straight/Heterosexual Gender identity: Female Cognitive needs: No Hearing needs: No Vision needs: Yes Female Reproductive History Menstrual Age of Menarche: 11 Duration of menses: 3-5 days Date of last menstrual period: 05/11/24 control method: none Total pregnancies: 2 Full term: 2 Date of last pap smear: 04/06/22 (negative) History of abnormal pap smear: No Physical Exam Vital Signs: Last Vital Signs BP 110/60 05/26/24 09:56 BMI result Body Mass Index 18.8 Const General: healthy appearing, comfortable, no acute distress, well developed and alert Nutritional Appearance: thin and underweight Orientation/consciousness: patient oriented x3 Limitations: no limitations HEENT Head: Yes normocephalic Neck Neck: Yes normal visual inspection Chest Chest palpation & inspection: normal inspection of the chest Breast/axilla inspection: normal inspection of the breasts and normal inspection of the axillae Breast/axilla palpation: normal palpation of the breasts and normal palpation of the axillae Resp Effort & Inspection: normal respiratory effort GI Inspection: Yes normal to inspection, No Abdominal wall edema and No distended Palpation (GI): Soft to palpation and nontender Other: Her external vulva is pink even very inflamed and excoriated consistent with either mild yeast or a contact dermatitis as she described( she said she had a reaction to a cheap brand lubricant that she used.) Vagina inside with whitish discharge that could be consistent with yeast cervix multiparous smooth mobile nontender adnexa nontender patient was not able to perform a Kegel and instead pushed. I have instructed her to try to stop her urine flow once or twice and memorize that sensation and practice that exercise multiple times a day additionally I gave her printed information about how to do Kegel exercises and recommend she work on that before getting . I recommend plain not hot water and no soap to her vagina and I am prescribing Monistat 7 cream for her to use until she finds relief and I recommend no sex until she is completely healed and no shaving either. General: Yes bladder normal to palpation External Female Exam: normal appearance of the urethra Speculum Exam - Vagina: normal appearance of the vagina, normal palpation and normal vaginal discharge Speculum Exam - Cervix: normal appearance of the cervix, normal palpation and nontender Bimanual exam- vagina & uterus: normal bimanual exam, normal palpation, uterine size normal, bladder normal to palpation, consistency normal, normal palpation, uterine mobility normal, uterine shape normal, No Cervical tenderness present, non-tender and no cervical motion tenderness Bimanual Exam- Adnexa, other: normal adnexae, no masses, normal and No adnexal tenderness Neuro General: patient oriented x3 Results Reviewed Results Reviewed: Name: Simeon Persaud Age/Sex: 21/F Attending: Purnima Harvey CNM : 2000 Submitted by: Purnima Harvey CNM Copies to: MR #: [id number] Status: DEP REF Collected: 04/04/22 Location: [facility] Received: 04/06/22 Interpretation Satisfactory for evaluation. Mild inflammation. Negative for intraepithelial lesion or malignancy. Clinical Information LMP: No menses Previous PAP test: 01/02/22, WNL Material Received ThinPrep-Cervical Electronically Signed By: DORY Marinelli ([facility]) 04/19/22 1547 The Pap Test is a screening procedure with the inherent possibility of both false negative and false positive results. Results should be interpreted in the context of historic and current clinical findings. Reliability of the Pap Test is enhanced by performing the test on a regular repetitive basis. Patient: Simeon Persaud Age/Sex: 21/F MR#: [id number] Page 1 of 1 Assessment & Plan Assessment & Plan (1) Encounter for routine gynecological examination: Code(s): Z01.419 - Encounter for gynecological examination (general) (routine) without abnormal findings Category: Medical (2) Cervical cancer screening: Comment: 01/01/2022 Pap unsatisfactory scant cellularity (inadvertent HPV co testing = negative) repeated 04/04/22 Code(s): Z12.4 - Encounter for screening for malignant neoplasm of cervix Category: Medical (3) control counseling: Code(s): Z30.09 - Encounter for other general counseling and advice on contraception Category: Medical (4) Underweight due to inadequate caloric intake: Code(s): R63.6 - Underweight Category: Medical (5) Lupus: Code(s): M32.9 - Systemic lupus erythematosus, unspecified Category: Medical (6) Hypothyroid: Code(s): E03.9 - Hypothyroidism, unspecified Category: Medical (7) Pelvic floor weakness: Comment: patient unable to reproduce a Kegel during the visit given written instructions and asked to do them several times a day. Code(s): N81.89 - Other female genital prolapse Category: Medical (8) Vaginal irritation: Code(s): N89.8 - Other specified noninflammatory disorders of vagina Category: Medical (9) Patient desires : Code(s): Z31.9 - Encounter for procreative management, unspecified Category: Medical Plan -----Discussed in this visit the following: healthy balanced diet, regular and consistent exercise, getting recommended health screens, doing the best she can for her particular health concerns, kegel exercises, pap smear screening and followup recommendations, mammography screening and SBE, normal changes in cycles in her life stage--- .Her external vulva is pink even very inflamed and excoriated consistent with either mild yeast or a contact dermatitis as she described( she said she had a reaction to a cheap brand lubricant that she used.) Vagina inside with whitish discharge that could be consistent with yeast cervix multiparous smooth mobile nontender adnexa nontender patient was not able to perform a Kegel and instead pushed. I have instructed her to try to stop her urine flow once or twice and memorize that sensation and practice that exercise multiple times a day additionally I gave her printed information about how to do Kegel exercises and recommend she work on that before getting . I recommend plain not hot water and no soap to her vagina and I am prescribing Monistat 7 cream for her to use until she finds relief and I recommend no sex until she is completely healed and no shaving either. Since she is not able to take the multivitamin so she was prescribed because it too big to swallow I recommend she speak with whoever prescribed them see they are able to prescribe the tubal ones for her when we prescribe them they are not covered accept for somebody under 18 years old. Also discussed that because of her lupus she would need to get all care at [facility] from the start.. Orders: Orders CT NG by PCR Today N89.8 - Other specified noninflammatory disorders of vagina Bacterial Vaginosis Panel Today N89.8 - Other specified noninflammatory disorders of vagina Medications: New miconazole nitrate 2% (Miconazole-7) 1 appful vaginal BEDTIME 7 days 45 grams 2RF Coding Level of Care Code Est Pt Prev Care 18-39y(48822) Diagnoses Encounter for routine gynecological examination Z01.419 Cervical cancer screening Z12.4 control counseling Z30.09 Underweight due to inadequate caloric intake R63.6 Lupus M32.9 Hypothyroid E03.9 Pelvic floor weakness N81.89 Vaginal irritation N89.8 Patient desires Z31.9
[2024-05-26 09:56] VITALS: BP 110/60; BMI 18.8
== END 2024-05-26 10:55 | disposition home or self-care (01) ==
PROVIDERS: PCP Internal Medicine; Visit Provider Advanced Practice Midwife
DX: Z01.419 Encounter for gynecological examination (general) (routine) without abnormal findings (principal); N89.8 Other specified noninflammatory disorders of vagina; N81.89 Other female genital prolapse; M32.9 Systemic lupus erythematosus, unspecified; E03.9 Hypothyroidism, unspecified
CPT/HCPCS: 99395

== ENCOUNTER 2024-05-26 09:53 | Outpatient (REF) | payer OTHER, SELFPAY ==
[2024-05-26 18:23] LABS: Bacterial Vaginosis PCR POSITIVE (Negative); Candida Group PCR DETECTED (Not Detect); Candida glab krusei PCR NOT DETECTED (Not Detect); Trichomonas vaginalis PCR NOT DETECTED (Not Detect)
[2024-05-26 18:55] LABS: CT PCR NOT DETECTED (Not Detect.); NG PCR NOT DETECTED (Not Detect.)
== END 2024-05-26 09:54 | disposition home or self-care (01) ==
LOC: HO.LAB 09:53
PROVIDERS: PCP Internal Medicine; Visit Provider Advanced Practice Midwife
DX: Z01.419 Encounter for gynecological examination (general) (routine) without abnormal findings (principal); N89.8 Other specified noninflammatory disorders of vagina; N81.89 Other female genital prolapse; R63.6 Underweight; M32.9 Systemic lupus erythematosus, unspecified; E03.9 Hypothyroidism, unspecified
CPT/HCPCS: 0352U; 87491; 87591; 99395; 99459

== ENCOUNTER 2024-07-16 07:54 | Outpatient (AMB) | payer OTHER, SELFPAY ==
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
--- NOTE | 2024-07-16 08:51 | MHC.PC.OV ---
Intake Visit Reasons: medication management/thyroid/ob Allergies doxycycline Allergy (Unknown, Verified 07/16/24 08:52) Nausea and Vomiting Medication List - Last Reconciled 07/16/24 by Chance Lynn MD acetaminophen 500 mg PO ONCE PRN albuterol sulfate 90 mcg/actuation 1 inh inhalation QID PRN 30 days amitriptyline 25 mg PO BEDTIME 90 days [Boost 1 unit PO DAILY] chlorhexidine gluconate 0.12% 0.12 appl PO DAILY cholecalciferol (vitamin D3) 25 mcg PO DAILY 90 days fluoride (sodium) 1.1% (Denta 5000 Plus) 5,000 appl PO DAILY levothyroxine 125 mcg PO DAILY 90 days multivitamin (One Daily Multivitamin tablet) 1 tab PO DAILY nystatin 1 appl topical DAILY 30 days sumatriptan succinate 50 mg PO ONCE PRN 30 days Symbicort 160-4.5 mcg/actuation (budesonide-formoterol) 1 inh inhalation DAILY 30 days NS Tobacco use date assessed: 07/16/24 Dental Screening Dental Screen Date: 07/16/24 Did you have a dental visit in the last 12 months?: Yes Did you have a dental problem in the last 6 months where you did not have access to dental care?: No Was dental information given to patient?: Patient has dentist HPI medication management/thyroid/ob HPI Details Patient is 24 year old female 5 wk and recovering from covid patient state 4 days ago [facility] [place] and was given Paxlovid that she is taking she is slowly getting better she will continue levothyroxine and asthma meds and stop all other meds patient is already establish with Obgyn [facility] Medical History Low platelet count Chronic pain syndrome Bruising, spontaneous Lupus Long-term use of immunosuppressant medication Bilateral chronic knee pain Hypothyroid Asthma Surgical History S/P removal of thyroid nodule Family History Maternal Aunt Breast cancer Paternal Aunt Leukemia Mother No problems noted. Father No problems noted. Paternal Aunt Lupus Social History Household Members: Family Housing: House Alcohol intake: never Patient Tobacco Use Status: Never used Tobacco e-Cigarette/Vaping Use: Never Used Substance Use Type: Marijuana service: No Current occupational status: unemployed Sexual orientation: Straight/Heterosexual Gender identity: Female Cognitive needs: No Hearing needs: No Vision needs: Yes Female Reproductive History Menstrual Age of Menarche: 11 Questionnaire Thrive Questionnaire Date Thrive assessed: 01/08/24 AUDIT C Alcohol Use Questionnaire (AUDIT-C) 1. How often do you have a drink containing alcohol?: Never 3. How often do you have six or more drinks on one occasion?: Never Total Score: 0 Score Reviewed/Action Taken: Yes KAROL-7 AMB Questionnaire KAROL-7 Date KAROL - 7 assessed: 01/08/24 Source: Developed by Drs. Luis Manuel Nash, Edith Fan, Jose Doran and colleagues, with an educational ez from [employer]. Review of Systems Const Denies chills ENT Denies epistaxis Card Denies chest pain Resp Denies hemoptysis GI Denies diarrhea and Denies nausea Skin/Breast Denies rash Neuro Reports no additional complaints Psych Reports no additional complaints Endo Reports no additional complaints Physical exam (Primary Care) Tobacco/Smoking Status: Tobacco use Status Tobacco use date assessed 07/16/24 07/16/24 08:52 Patient Tobacco Use Status Never used Tobacco 07/16/24 08:52 e-Cigarette/Vaping Use Never Used 07/16/24 08:52 Thrive Assessment: Date of Thrive Assessment Date Thrive assessed 01/08/24 07/16/24 08:52 Telehealth Telehealth Telehealth Platform: [facility] Location of provider rendering services: practice address Location of patient: address on file Patient Identification confirmed using: Name, : Yes Telehealth method: video Patient verbally consented to treatment: Yes Patient verbally consented to billing insurance company: Yes Patient informed of any privacy concerns related to visit: Yes Minutes spent on Phone/Video with Pt.: 13 Coding Level of Care Code Tele Est Pt Level 3 (96190) Diagnoses Other specified hypothyroidism E03.8 Moderate persistent asthma without complication J45.40 Asthma complication type: uncomplicated Intractable migraine without status migrainosus, unspecified migraine type G43.919 Migraine type: unspecified Status migrainosus presence: without status migrainosus Intractability: intractable COVID U07.1 Less than 8 weeks gestation of Z3A.01 Weeks of gestation: less than 8 weeks Assessment & Plan Assessment & Plan (1) Other specified hypothyroidism: Code(s): E03.8 - Other specified hypothyroidism Category: Medical (2) Asthma, moderate persistent: Code(s): J45.40 - Moderate persistent asthma, uncomplicated Category: Medical Qualifiers: Asthma complication type: uncomplicated Qualified Code(s): J45.40 - Moderate persistent asthma, uncomplicated (3) Migraine headache: Code(s): G43.909 - Migraine, unspecified, not intractable, without status migrainosus Category: Medical Qualifiers: Migraine type: unspecified Status migrainosus presence: without status migrainosus Intractability: intractable Qualified Code(s): G43.919 - Migraine, unspecified, intractable, without status migrainosus (4) COVID: Code(s): U07.1 - COVID-19 Category: Medical (5) : Code(s): Z34.90 - Encounter for supervision of normal , unspecified, unspecified trimester Category: Medical Qualifiers: Weeks of gestation: less than 8 weeks Qualified Code(s): Z3A.01 - Less than 8 weeks gestation of Plan Patient is 24 year old female 5 wk and recovering from covid patient state 4 days ago [facility] [place] and was given Paxlovid that she is taking she is slowly getting better she will continue levothyroxine and asthma meds and stop all other meds patient is already establish with Obgyn Orders: Orders Comprehensive Met. Panel Today E03.8 - Other specified hypothyroidism, G43.919 - Migraine, unspecified, intractable, without status migrainosus, J45.40 - Moderate persistent asthma, uncomplicated, U07.1 - COVID-19, Z34.90 - Encounter for supervision of normal , unspecified, unspecified trimester Complete Blood Count Auto Diff Today E03.8 - Other specified hypothyroidism, G43.919 - Migraine, unspecified, intractable, without status migrainosus, J45.40 - Moderate persistent asthma, uncomplicated, U07.1 - COVID-19, Z34.90 - Encounter for supervision of normal , unspecified, unspecified trimester TSH reflex Free T4 Today E03.8 - Other specified hypothyroidism, G43.919 - Migraine, unspecified, intractable, without status migrainosus, J45.40 - Moderate persistent asthma, uncomplicated, U07.1 - COVID-19, Z34.90 - Encounter for supervision of normal , unspecified, unspecified trimester Medications: Changed From albuterol sulfate 90 mcg/actuation (ProAir HFA) 1 inh inhalation QID 30 days PRN 18 grams 0RF shortness of breath or wheezing To albuterol sulfate 90 mcg/actuation 1 inh inhalation QID 30 days PRN 18 grams 0RF shortness of breath or wheezing Refilled levothyroxine 125 mcg PO DAILY 90 days 90 tabs 1RF Symbicort 160-4.5 mcg/actuation (budesonide-formoterol) 1 inh inhalation DAILY 30 days 10.2 grams 5RF NS
== END 2024-07-16 09:48 | disposition home or self-care (01) ==
LOC: HO.HMCC 07:54
PROVIDERS: PCP Internal Medicine; Visit Provider Internal Medicine
DX: E03.8 Other specified hypothyroidism (principal); J45.40 Moderate persistent asthma, uncomplicated; G43.919 Migraine, unspecified, intractable, without status migrainosus; U07.1 COVID-19; Z3A.01 Less than 8 weeks gestation of pregnancy

== ENCOUNTER → 2024-07-16 07:54 | Outpatient (BNVA) | payer OTHER, SELFPAY | PROVIDERS: PCP Internal Medicine; Visit Provider Internal Medicine ==

== ENCOUNTER 2024-08-10 11:07 | Outpatient (REF) | payer OTHER, SELFPAY ==
--- OUTSIDE RECORDS SUMMARY | 2024-08-10 12:38 | XMS_ITS | Clinical Summary ---
Author Organization [employer] [facility] Address [address] [place] [address] Care Team Providers Care Certified Corporate Travel Executive Name Role Phone Abner Arenas MD Primary Care Provider Unava ilable Surgical History Surgery Date Site/Laterality Comments OTHER SURGICAL HISTORY PROCEDURE: DENIES PREVIOUS SURGERY OTHER SURGICAL HISTORY 10/04/2020 PROCEDURE: [place] THYROIDECTOMY TOTAL/COMPLETE; COMMENT: total thyroidectomy for Graves [...] 07/30/13 transfer note Patient is to see [facility]. No details available in transfer records. [...] note- patient was to be moving to [place] for a bit until things get better. [...] patient's age to complete this topic Meningococcal B Vacine Aged Out No lo nger eligible based on patient's age to complete [...] age to complete this topic Care Teams Certified Corporate Travel Executive Relationship Specialty Start Date End Date Abner Arenas MD PCP - General Internal Medicine 10/02/19
[2024-08-10 13:17] LABS: MANUAL DIFF FLAG NO
[2024-08-10 13:33] LABS: Basophils Percent Auto 0.5 % (0-2); Eosinophils Percent Auto 0.7 % (0-4); Hemoglobin 10.9 g/dl (12.0-16.0); Imm Gran Abs Auto 0.02 X10*3/uL (0.00-0.03); Imm Gran Pct Auto 0.4 % (0.0-0.4); Lymphocytes Absolute Auto 1.6 X10*3/uL (1.2-4.9); Lymphocytes Percent Auto 27.6 % (20-40); Mean Corpuscular Hemoglobin 32.8 pg (27.0-33.0); Mean Corpuscular Volume 99.4 fL (80.0-98.0); Monocytes Absolute Auto 0.2 X10*3/uL (0.1-1.2); Monocytes Percent Auto 4.2 % (2-11); Neutrophils Absolute Auto 3.8 x10*3/uL (2.0-8.3); Neutrophils Percent Auto 66.6 % (45-73); Platelet Count 147 X10*3/uL (160-400); Red Blood Count 3.32 X10*6/uL (4.20-5.50); Red Cell Distribution Width 13.5 % (11.0-16.0); White Blood Count 5.7 X10*3/uL (4.8-10.8)
[2024-08-10 13:56] LABS: Alanine Aminotransferase 12 U/L (0-31); Albumin Level 4.1 g/dL (3.5-5.0); Alkaline Phosphatase 38 U/L (39-117); Anion Gap 11 (12-20); Aspartate Amino Transferase 15 U/L (5-31); Bilirubin Total 0.4 mg/dL (0.0-1.0); Blood Urea Nitrogen 9 mg/dL (9-16); Calcium 9.5 mg/dL (8.4-10.2); Carbon Dioxide 25 mmol/L (22-29); Chloride 108 mmol/L (96-108); Estimated Glomerular Filt Rate > 60; Glucose Random 76 mg/dL (60-115); Potassium 3.8 mmol/L (3.3-5.1); Sodium 140 mmol/L (135-145); Total Protein 7.3 g/dL (6.5-8.0)
[2024-08-10 14:02] LABS: TSH reflex Free T4 38.87 uIU/mL (0.32-4.0)
[2024-08-10 14:33] LABS: Free T4 (Free Thyroxine) 0.84 ng/dL (0.71-1.85)
== END 2024-08-10 11:08 | disposition home or self-care (01) ==
LOC: HO.HMGCLDS 11:07
PROVIDERS: PCP Internal Medicine; Visit Provider Internal Medicine
DX: E03.8 Other specified hypothyroidism (principal); J45.40 Moderate persistent asthma, uncomplicated; G43.919 Migraine, unspecified, intractable, without status migrainosus; U07.1 COVID-19; Z34.90 Encounter for supervision of normal pregnancy, unspecified, unspecified trimester
CPT/HCPCS: 36415; 80053; 84439; 84443; 85025

== ENCOUNTER 2024-08-13 08:07 | Outpatient (AMB) | payer OTHER, SELFPAY ==
--- OUTSIDE RECORDS SUMMARY | 2024-08-13 08:14 | XMS_ITS | Encounter Summary ---
Author Organization [facility] Address [address] [place] [address] Care Team Providers Care Beater Machine Operator Name Role Phone Deborah Guerra MD Primary Care Provider Unavailab Abner Dueñas MD Primary Care Provider Un available Reason for Visit * Reason Onset Date Comments refill request 07/16/2019 Encounter Details Date Type Department Care Team Description 07/16/2019 Refill Pediatrics - [place] [address] [place] [address] Samantha Meyer NP [address] [place] [address] refill request Social History Tobacco Use Types Packs/Day Years Used Date Smoking Tobacco: Never Smokeless Tobacco: Never Alcohol Use Standard Drinks/Week Comments No 0 (1 standard drink = 0.6 oz pur e alcohol) Sex Assigned at Date Recorded Not on file documented as of this encounter Miscellaneous Notes * Telephone Encounter - Samantha Meyer NP - 07/16/2019 2:59 PM EST Approved for refill. Please let family know. * Telephone Encounter - Adriana Mason - 07/16/2019 2:28 PM EST When was patients last PE/WCC? 10/09/18 When is patients next PE/WCC scheduled? 10/12/19 Deborah Guerra RX REQUEST WHEN MED IS ON THE LIST: All of the medications requested were on the CURRENT MEDS list Did you check the Pharmacy information above?: YES Indicate how soon the patient needs the script: [place] Patient would like script to be: E-PRESCRIBED/FAXED TO PHARMACY Is the doctor here today?: YES Can the message wait until the doctor returns?: NO Has the patient been told that the prescription will not be filled until the end of the day? YES Deborah Guerra Payor: [employer] FFS / Plan: [employer] [place] / Product Type: MEDICAID RISK documented in this encounter Plan of Treatment Not on file documented as of this encounter Visit Diagnoses Not on filedocumented in this encounter Care Teams Beater Machine Operator Relationship Specialty Start Date End Date Deborah Guerra MD PCP - General Pediatrics 02/22/15 10/01/19 Abner Arenas MD PCP - General Internal Medicine 10/02/19 documented as of this encounter
--- OUTSIDE RECORDS SUMMARY | 2024-08-13 08:14 | XMS_ITS | Encounter Summary ---
Author Organization [facility] Address [address] [place] [address] Care Team Providers Care Silk Presser Name Role Phone Deborah Guerra MD Primary Care Provider [facility] Abner Dueñas MD Primary Care Provider Un available Encounter Details Date Type Department Care Team Description 04/18/2017 Deicer Inspector Electric Report Medical Records [address] [place] [phone] Madison Gaytan MD Social History Tobacco Use Types Packs/Day Years Used Date Smoking Tobacco: Never Smokeless Tobacco: Never Alcohol Use Standard Drinks/Week Comments No 0 (1 standard drink = 0.6 oz pur e alcohol) Sex Assigned at Date Recorded Not on file documented as of this encounter Plan of Treatment Not on file documented as of this encounter Visit Diagnoses Not on filedocumented in this encounter Care Teams Silk Presser Relationship Specialty Start Date End Date Deborah Guerra MD PCP - General Pediatrics 02/22/15 10/01/19 Abner Arenas MD PCP - General Internal Medicine 10/02/19 documented as of this encounter
--- OUTSIDE RECORDS SUMMARY | 2024-08-13 08:15 | XMS_ITS | Encounter Summary ---
Author Organization [facility] Address [address] [place] [address] Care Team Providers Care Bankruptcy Legal Assistant Name Role Phone Deborah Guerra MD Primary Care Provider [facility] Abner Dueñas MD Primary Care Provider Un available Encounter Details Date Type Department Care Team Description 07/02/2017 Tag Marker Report Medical Records [address] [place] [address] Sobia Willoughby Social History Tobacco Use Types Packs/Day Years [...] on filedocumented in this encounter Care Teams Bankruptcy Legal Assistant Relationship Specialty Start Date End Date Deborah Guerra MD PCP - General Pediatrics 02/22/15 10/01/19 Abner Arenas MD PCP - General Internal Medicine 10/02/19 documented as of this encounter
--- OUTSIDE RECORDS SUMMARY | 2024-08-13 08:15 | XMS_ITS | Encounter Summary ---
Author Organization [facility] Address [address] [place] [address] Care Team Providers Care Air Export Coordinator Name Role Phone Deborah Guerra MD Primary Care Provider [facility] Abner Dueñas MD Primary Care Provider Un available Encounter Details Date Type Department Care Team Description 07/03/2017 Social Worker Assistant Report Medical Records [address] [place] [address] Sobia Willoughby Social History Tobacco Use Types [...] on filedocumented in this encounter Care Teams Air Export Coordinator Relationship Specialty Start Date End Date Deborah Guerra MD PCP - General Pediatrics 02/22/15 10/01/19 Abner Arenas MD PCP - General Internal Medicine 10/02/19 documented as of this encounter
--- OUTSIDE RECORDS SUMMARY | 2024-08-13 08:15 | XMS_ITS | Encounter Summary ---
Author Organization [facility] Address [address] [place] [address] Care Team Providers Care Client Service Representative Name Role Phone Deborah Guerra MD Primary Care Provider [facility] Abner Dueñas MD Primary Care Provider Un available Encounter Details Date Type Department Care Team Description 10/15/2018 Carpet Cleaner Report Medical Records [address] [place] [address] Jackie Pate MD Social History Tobacco Use Types Packs/Day [...] on filedocumented in this encounter Care Teams Client Service Representative Relationship Specialty Start Date End Date Deborah Guerra MD PCP - General Pediatrics 02/22/15 10/01/19 Abner Arenas MD PCP - General Internal Medicine 10/02/19 documented as of this encounter
--- OUTSIDE RECORDS SUMMARY | 2024-08-13 08:15 | XMS_ITS | Encounter Summary ---
Author Organization [facility] Address [address] [place] [address] Care Team Providers Care Pst Supervisor Name Role Phone Deborah Guerra MD Primary Care Provider Unavail Abner Dueñas MD Primary Care Provider Un available Encounter Details Date Type Department Care Team Description 12/15/2018 Orders Only Pediatrics - [place] [address] [place] [address] Samantha Meyer NP [address] [place] [address] Graves disease Social History Tobacco Use Types Packs/Day Years Used Date Smoking Tobacco: Never Smokeless Tobacco: Never Alcohol Use Standard Drinks/Week Comments No 0 (1 standard drink = 0.6 oz pur e alcohol) Sex Assigned at Date Recorded Not on file documented as of this encounter Plan of Treatment Not on file documented as of this encounter Visit Diagnoses Diagnosis Graves disease Toxic diffuse goiter without mention of thyrotoxic crisis or storm documented in this encounter Care Teams Pst Supervisor Relationship Specialty Start Date End Date Deborah Guerra MD PCP - General Pediatrics 02/22/15 10/01/19 Abner Arenas MD PCP - General Internal Medicine 10/02/19 documented as of this encounter
--- OUTSIDE RECORDS SUMMARY | 2024-08-13 08:15 | XMS_ITS | Clinical Summary ---
Author Organization [facility] Address [address] [place] [address] Care Team Providers Care Utilization Review Nurse Name Role Phone Abner Arenas MD Primary Care Provider Unava ilable Surgical History Surgery Date Site/Laterality Comments OTHER SURGICAL HISTORY PROCEDURE: DENIES PREVIOUS SURGERY OTHER SURGICAL HISTORY 10/04/2020 PROCEDURE: [place] THYROIDECTOMY TOTAL/COMPLETE; COMMENT: total thyroidectomy for Graves [...] 07/30/13 transfer note Patient is to see [facility]. No details available in transfer records. Academic [...] note- patient was to be moving to [place] for a bit until things get better. [...] age to complete this topic Care Teams Utilization Review Nurse Relationship Specialty Start Date End Date Abner Arenas MD PCP - General Internal Medicine 10/02/19
--- OUTSIDE RECORDS SUMMARY | 2024-08-13 08:15 | XMS_ITS | Encounter Summary ---
Author Organization [facility] Address [address] [place] [address] Care Team Providers Care Control Systems Specialist Name Role Phone Deborah Guerra MD Primary Care Provider Unavail Abner Dueñas MD Primary Care Provider Un available Encounter Details Date Type Department Care Team Description 03/30/2019 Twine Winder Report Medical Records [address] [place] [address] Tanner Quan Social History Tobacco Use Types Packs/Day Years [...] on filedocumented in this encounter Care Teams Control Systems Specialist Relationship Specialty Start Date End Date Deborah Guerra MD PCP - General Pediatrics 02/22/15 10/01/19 Abner Arenas MD PCP - General Internal Medicine 10/02/19 documented as of this encounter
--- OUTSIDE RECORDS SUMMARY | 2024-08-13 08:15 | XMS_ITS | Encounter Summary ---
Author Organization [facility] Address [address] [place] [address] Care Team Providers Care Professor Of Biochemistry Name Role Phone Deborah Guerra MD Primary Care Provider [facility] Abner Dueñas MD Primary Care Provider Un available Encounter Details Date Type Department Care Team Description 04/23/2017 Mail Opener Report Medical Records [address] [place] [address] Madison Gaytan MD Social History Tobacco Use [...] on filedocumented in this encounter Care Teams Professor Of Biochemistry Relationship Specialty Start Date End Date Deborah Guerra MD PCP - General Pediatrics 02/22/15 10/01/19 Abner Arenas MD PCP - General Internal Medicine 10/02/19 documented as of this encounter
--- OUTSIDE RECORDS SUMMARY | 2024-08-13 08:15 | XMS_ITS | Encounter Summary ---
Author Organization [facility] Address [address] [place] [address] Care Team Providers Care Business School Dean Name Role Phone Deborah Guerra MD Primary Care Provider Unavailab Abner Dueñas MD Primary Care Provider Un available Encounter Details Date Type Department Care Team Description 10/30/2018 Air Antisubmarine Officer Report Medical Records [address] [place] [address] Rehab., Arjun Social History Tobacco Use Types Packs/Day Years [...] on filedocumented in this encounter Care Teams Business School Dean Relationship Specialty Start Date End Date Deborah Guerra MD PCP - General Pediatrics 02/22/15 10/01/19 Abner Arenas MD PCP - General Internal Medicine 10/02/19 documented as of this encounter
--- OUTSIDE RECORDS SUMMARY | 2024-08-13 08:15 | XMS_ITS | Encounter Summary ---
Author Organization [facility] Address [address] [place] [address] Care Team Providers Care Daycare Teacher Name Role Phone Deborah Guerra MD Primary Care Provider Unavailab Abner Dueñas MD Primary Care Provider Un available Encounter Details Date Type Department Care Team Description 04/02/2019 Refresh Technician Report Medical Records [address] [place] [address] Social History Tobacco Use Types Packs/Day Years [...] on filedocumented in this encounter Care Teams Daycare Teacher Relationship Specialty Start Date End Date Deborah Guerra MD PCP - General Pediatrics 02/22/15 10/01/19 Abner Arenas MD PCP - General Internal Medicine 10/02/19 documented as of this encounter
--- OUTSIDE RECORDS SUMMARY | 2024-08-13 08:16 | XMS_ITS | Encounter Summary ---
Author Organization [facility] Address [address] [place] [address] Care Team Providers Care Electronics Engineering Technologist Name Role Phone Deborah Guerra MD Primary Care Provider [facility] Abner Dueñas MD Primary Care Provider Un available Encounter Details Date Type Department Care Team Description 10/11/2017 Industrial Relations Director Report Medical Records [address] [place] [address] Sobia Willoughby Social History Tobacco Use Types [...] on filedocumented in this encounter Care Teams Electronics Engineering Technologist Relationship Specialty Start Date End Date Deborah Guerra MD PCP - General Pediatrics 02/22/15 10/01/19 Abner Arenas MD PCP - General Internal Medicine 10/02/19 documented as of this encounter
--- OUTSIDE RECORDS SUMMARY | 2024-08-13 08:16 | XMS_ITS | Encounter Summary ---
Author Organization [facility] Address [address] [place] [address] Care Team Providers Care Bank Vault Attendant Name Role Phone Deborah Guerra MD Primary Care Provider [facility] Abner Dueñas MD Primary Care Provider Un available Encounter Details Date Type Department Care Team Description 05/15/2017 Visual Training Aide Report Medical Records [address] [place] [address] Sobia Willoughby Social History Tobacco Use Types [...] on filedocumented in this encounter Care Teams Bank Vault Attendant Relationship Specialty Start Date End Date Deborah Guerra MD PCP - General Pediatrics 02/22/15 10/01/19 Abner Arenas MD PCP - General Internal Medicine 10/02/19 documented as of this encounter
--- NOTE | 2024-08-13 09:16 | A.OFFPC_ITS ---
Intake Visit Reasons: Discuss labs Allergies doxycycline Allergy (Unknown, Verified 08/13/24 09:16) Nausea and Vomiting Medication List - Last Reconciled 08/13/24 by Chance Lynn MD acetaminophen 500 mg PO ONCE PRN albuterol sulfate 90 mcg/actuation 1 inh inhalation QID PRN 30 days amitriptyline 25 mg PO BEDTIME 90 days [Boost 1 unit PO DAILY] chlorhexidine gluconate 0.12% 0.12 appl PO DAILY cholecalciferol (vitamin D3) 25 mcg PO DAILY 90 days fluoride (sodium) 1.1% (Denta 5000 Plus) 5,000 appl PO DAILY levothyroxine 125 mcg PO DAILY 90 days multivitamin (One Daily Multivitamin tablet) 1 tab PO DAILY nystatin 1 appl topical DAILY 30 days sumatriptan succinate 50 mg PO ONCE PRN 30 days Symbicort 160-4.5 mcg/actuation (budesonide-formoterol) 1 inh inhalation DAILY 30 days NS Tobacco use date assessed: 08/13/24 Dental Screening Dental Screen Date: 08/13/24 Did you have a dental visit in the last 12 months?: Yes Did you have a dental problem in the last 6 months where you did not have access to dental care?: No Was dental information given to patient?: Patient has dentist HPI Discuss labs HPI Details History The patient is a 24-year-old female presenting with care assessment. - She is currently in her early pregnanc y at 9 weeks, approaching 10 weeks soon. - Recent laboratory results indicate ane arabella with a noted drop in hemoglobin to 10.9 g/dL; patient had a stable level of 12.9 g/dL in January. - The anemia may be attributed to increa sed physiological demands of ; the patient has begun taking vitamins with iron recently. - Her TSH level came back very high she claims to take her 125 mcg to Leveothyroxine daily on empty stomach I am increasing the dose to 175 mcg, she is to repeat labs in 6 wks Problem List - Anemia in - Hypothyroidism with Elevated Thyroid S timulating Hormone Patient Instructions - Take one iron supplement daily in mariah tion to vitamins. - Increase the dosage of levothyroxine t o 175 mcg daily. - Continue taking thyroid medication on an empty stomach, 30 minutes before eating. - Return for blood tests in six weeks to monitor hemoglobin and thyroid levels. - Ensure to have follow-up appointments with the Ob-Security Assistant at [facility]. Review of Systems - General: No fever no chills - Neurological: No headaches no dizziness - Ear nose throat: No sore throat no hearing difficulty no ear pain - Cardiovascular: No syncope, no chest pain, no palpitations - Gastrointestinal: No nausea vomiting or diarrhea - Endocrine: No polyuria polydipsia no heat intolerance - Genitourinary: No dysuria , no blood in urine [facility] Medical History Low platelet count Chronic pain syndrome Bruising, spontaneous Lupus Long-term use of immunosuppressant medication Bilateral chronic knee pain Hypothyroid Asthma Surgical History S/P removal of thyroid nodule Family History Maternal Aunt Breast cancer Paternal Aunt Leukemia Mother No problems noted. Father No problems noted. Paternal Aunt Lupus Social History Household Members: Family Housing: House Alcohol intake: never Patient Tobacco Use Status: Never used Tobacco e-Cigarette/Vaping Use: Never Used Substance Use Type: Marijuana service: No Current occupational status: unemployed Sexual orientation: Straight/Heterosexual Gender identity: Female Cognitive needs: No Hearing needs: No Vision needs: Yes Female Reproductive History Menstrual Age of Menarche: 11 Questionnaire Thrive Questionnaire Date Thrive assessed: 08/13/24 I am a: Patient What is your living situation today?: I have a steady place to live Within the past 12 months, did the food you bought not last and you didn't have the money to get more?: Never true Within the past 12 months, did you worry whether your food would run out before you got money to buy more?: Never true Do you have trouble paying for medicines?: No Do you have trouble getting transportation to medical appointments?: No Do you have trouble paying your heating and electricity bill?: No Do you have trouble taking care of your child, family member or friend?: No Do you have trouble with day-to-day activities such as bathing, preparing meals, shopping, managing finances, etc.?: No Are you currently unemployed and looking for a job?: No Are you interested in more education?: No Please select the resources that you would like help with: None Currently or been in a relationship where the following occur: No concerns reported THRIVE Score: 0 AUDIT C Alcohol Use Questionnaire (AUDIT-C) 1. How often do you have a drink containing alcohol?: Never 3. How often do you have six or more drinks on one occasion?: Never Total Score: 0 Score Reviewed/Action Taken: Yes KAROL-7 AMB Questionnaire KAROL-7 Date KAROL - 7 assessed: 08/13/24 Feeling nervous, anxious, or on edge: 0 = Not at all Not being able to stop or control worryin = Not at all Worrying too much about different things: 0 = Not at all Trouble relaxin = Not at all Being so restless that it is hard to sit still: 0 = Not at all Becoming easily annoyed or irritable: 0 = Not at all Feeling afraid as if something awful might happen: 0 = Not at all Total KAROL-7 score (0-4 normal; 5-9 mild; 10-14 moderate; 15-21 severe): 0 Source: Developed by Drs. Luis Manuel Nash, Edith Fan, Jose Doran and colleagues, with an educational ez from [employer]. KAROL-7 Assessment Billing KAROL-7 Assessment Tool: KAROL-7 Assessment 74013 Physical exam (Primary Care) Tobacco/Smoking Status: Tobacco use Status Tobacco use date assessed 08/13/24 08/13/24 09:17 Patient Tobacco Use Status Never used Tobacco 08/13/24 09:17 e-Cigarette/Vaping Use Never Used 08/13/24 09:17 Thrive Assessment: Date of Thrive Assessment Date Thrive assessed 08/13/24 08/13/24 09:17 Currently or been in a relationship where the following occur: No concerns reported Telehealth Telehealth Telehealth Platform: [facility] Location of provider rendering services: practice address Location of patient: address on file Patient Identification confirmed using: Name, : Yes Telehealth method: voice only Patient verbally consented to treatment: Yes Patient verbally consented to billing insurance company: Yes Patient informed of any privacy concerns related to visit: Yes Minutes spent on Phone/Video with Pt.: 16 Coding Level of Care Code Tele Est Pt Level 3 (14729) Diagnoses Other specified hypothyroidism E03.8 Hypothyroidism type: other Other iron deficiency anemia D50.8 Anemia type: iron deficiency Iron deficiency anemia type: other iron deficiency Less than 8 weeks gestation of Z3A.01 Weeks of gestation: less than 8 weeks Additional Codes KAROL-7 Assessment Billing - KAROL-7 Assessment Tool: KAROL-7 Assessment 90144 ([id number]) Assessment & Plan Assessment & Plan (1) Hypothyroid: Code(s): E03.9 - Hypothyroidism, unspecified Category: Medical Qualifiers: Hypothyroidism type: other Qualified Code(s): E03.8 - Other specified hypothyroidism (2) Anemia: Code(s): D64.9 - Anemia, unspecified Category: Medical Qualifiers: Anemia type: iron deficiency Iron deficiency anemia type: other iron deficiency Qualified Code(s): D50.8 - Other iron deficiency anemias (3) : Code(s): Z34.90 - Encounter for supervision of normal , unspecified, unspecified trimester Category: Medical Qualifiers: Weeks of gestation: less than 8 weeks Qualified Code(s): Z3A.01 - Less than 8 weeks gestation of Plan History The patient is a 24-year-old female presenting with care assessment. - She is currently in her early at 9 weeks, approaching 10 weeks soon. - Recent laboratory results indicate anemia with a noted drop in hemoglobin to 10.9 g/dL; patient had a stable level of 12.9 g/dL in January. - The anemia may be attributed to increased physiological demands of ; the patient has begun taking vitamins with iron recently. - Her TSH level came back very high she claims to take her 125 mcg to Leveothyroxine daily on empty stomach I am increasing the dose to 175 mcg, she is to repeat labs in 6 wks Problem List - Anemia in - Hypothyroidism with Elevated Thyroid Stimulating Hormone Patient Instructions - Take one iron supplement daily in addition to vitamins. - Increase the dosage of levothyroxine to 175 mcg daily. - Continue taking thyroid medication on an empty stomach, 30 minutes before eating. - Return for blood tests in six weeks to monitor hemoglobin and thyroid levels. - Ensure to have follow-up appointments with the Ob-Security Assistant at [facility]. Orders: Orders TSH reflex Free T4 6 Weeks D64.9 - Anemia, unspecified, E03.9 - Hypothyroidism, unspecified Complete Blood Count Auto Diff 6 Weeks D64.9 - Anemia, unspecified, E03.9 - Hypothyroidism, unspecified Folate 6 Weeks D64.9 - Anemia, unspecified, E03.9 - Hypothyroidism, unspecified Vitamin D 25-OH (D2 and D3) 6 Weeks D64.9 - Anemia, unspecified, E03.9 - Hypothyroidism, unspecified Ferritin 6 Weeks D64.9 - Anemia, unspecified, E03.9 - Hypothyroidism, unspecified Vitamin B12 6 Weeks D64.9 - Anemia, unspecified, E03.9 - Hypothyroidism, unspecified Medications: New ferrous sulfate 324 mg PO BID 90 days 180 tabs 0RF Changed From levothyroxine 125 mcg PO DAILY 90 days 90 tabs 1RF To levothyroxine 175 mcg PO DAILY 90 days 90 tabs 1RF
== END 2024-08-13 09:53 | disposition home or self-care (01) ==
LOC: HO.HMCC 08:07
PROVIDERS: PCP Internal Medicine; Visit Provider Internal Medicine
DX: E03.8 Other specified hypothyroidism (principal); D50.8 Other iron deficiency anemias; Z3A.01 Less than 8 weeks gestation of pregnancy

== ENCOUNTER → 2024-08-13 08:07 | Outpatient (BNVA) | payer OTHER, SELFPAY | PROVIDERS: PCP Internal Medicine; Visit Provider Internal Medicine | DX: O26.891 Other specified pregnancy related conditions, first trimester (principal); E03.8 Other specified hypothyroidism; D50.8 Other iron deficiency anemias; Z3A.01 Less than 8 weeks gestation of pregnancy | CPT/HCPCS: 96127 ==

== ENCOUNTER 2024-10-01 10:17 | Outpatient (REF) | payer OTHER, SELFPAY ==
--- OUTSIDE RECORDS SUMMARY | 2024-10-01 11:41 | XMS_ITS | Encounter Summary ---
Author Organization [facility] Address [address] [place] [address] Care Team Providers Care Compensation And Benefits Advisor Name Role Phone Deborah Guerra MD Primary Care Provider Unavailab Abner Dueñas MD Primary Care Provider Un available Encounter Details Date Type Department Care Team Description 04/02/2019 Airline Customer Service Agent Report Medical Records [address] [place] [phone] Social History Tobacco Use Types Packs/Day Years [...] on filedocumented in this encounter Care Teams Compensation And Benefits Advisor Relationship Specialty Start Date End Date Deborah Guerra MD PCP - General Pediatrics 02/22/15 10/01/19 Abner Arenas MD PCP - General Internal Medicine 10/02/19 documented as of this encounter
--- OUTSIDE RECORDS SUMMARY | 2024-10-01 11:41 | XMS_ITS | Encounter Summary ---
Author Organization [facility] Address [address] [place] [address] Care Team Providers Care Law Instructor Name Role Phone Deborah Guerra MD Primary Care Provider Unavailab Abner Dueñas MD Primary Care Provider Un available Encounter Details Date Type Department Care Team Description 02/27/2016 Vegetable Scullion Report Medical Records [address] [place] [address] Mariama Garza Social History Tobacco Use Types Packs/Day Years Used Date Smoking Tobacco: Never Alcohol Use Standard Drinks/Week Comments Not Asked 0 (1 standard drink = 0.6 oz pur e alcohol) Sex Assigned at Date Recorded Not on file documented as of this encounter Plan of Treatment Not on file documented as of this encounter Visit Diagnoses Not on filedocumented in this encounter Care Teams Law Instructor Relationship Specialty Start Date End Date Deborah Guerra MD PCP - General Pediatrics 02/22/15 10/01/19 Abner Arenas MD PCP - General Internal Medicine 10/02/19 documented as of this encounter
--- OUTSIDE RECORDS SUMMARY | 2024-10-01 11:41 | XMS_ITS | Clinical Summary ---
Author Organization [facility] Address [address] [place] [address] Care Team Providers Care Burr Sander Name Role Phone Abner Arenas MD Primary [...] 07/30/13 transfer note Patient is to see [facility]. No details available in transfer records. [...] note- patient was to be moving to [place] for a bit until things get better. [...] Influencers of Health Screening 05/06/2022 COVID-19 Vaccine ( - 2023-2 5 season) 2024 Influenza Vaccine (Season Ended) 2025 DTaP,Tdap,and Td Vaccines (2 - Td or [...] age to complete this topic Meningococcal B Vaccine Aged Out No l onger eligible based on patient's age to complete [...] age to complete this topic Care Teams Burr Sander Relationship Specialty Start Date End Date Abner Arenas MD PCP - General Internal Medicine 10/02/19
--- OUTSIDE RECORDS SUMMARY | 2024-10-01 11:41 | XMS_ITS | Encounter Summary ---
Author Organization [facility] Address [address] [place] [address] Care Team Providers Care Engraver Copperplate Name Role Phone Deborah Guerra MD Primary Care Provider [facility] Abner Dueñas MD Primary Care Provider Un available Encounter Details Date Type Department Care Team Description 04/23/2017 Devil Tender Report Medical Records [address] [place] [id number] Madison Gaytan MD Social History Tobacco Use [...] on filedocumented in this encounter Care Teams Engraver Copperplate Relationship Specialty Start Date End Date Deborah Guerra MD PCP - General Pediatrics 02/22/15 10/01/19 Abner Arenas MD PCP - General Internal Medicine 10/02/19 documented as of this encounter
--- OUTSIDE RECORDS SUMMARY | 2024-10-01 11:41 | XMS_ITS | Encounter Summary ---
Author Organization [facility] Address [address] [place] [address] Care Team Providers Care Receiving Supervisor Name Role Phone Deborah Guerra MD Primary Care Provider Unavail Abner Dueñas MD Primary Care Provider Un available Encounter Details Date Type Department Care Team Description 11/20/2016 Centerless Grinder Tender Report Medical Records [address] [place] [address] Jackie Pate MD Social History Tobacco Use [...] on filedocumented in this encounter Care Teams Receiving Supervisor Relationship Specialty Start Date End Date Deborah Guerra MD PCP - General Pediatrics 02/22/15 10/01/19 Abner Arenas MD PCP - General Internal Medicine 10/02/19 documented as of this encounter
--- OUTSIDE RECORDS SUMMARY | 2024-10-01 11:41 | XMS_ITS | Encounter Summary ---
Author Organization [facility] Address [address] [place] [address] Care Team Providers Care Hardwood Floor Layer Name Role Phone Deborah Guerra MD Primary Care Provider Unavail Abner Dueñas MD Primary Care Provider Un available Encounter Details Date Type Department Care Team Description 12/15/2018 Orders Only Pediatrics - [place] [address] [place] [address] Samantha Meyer NP [address] [place] [address] Graves disease Social History Tobacco Use Types [...] storm documented in this encounter Care Teams Hardwood Floor Layer Relationship Specialty Start Date End Date Deborah Guerra MD PCP - General Pediatrics 02/22/15 10/01/19 Abner Arenas MD PCP - General Internal Medicine 10/02/19 documented as of this encounter
--- OUTSIDE RECORDS SUMMARY | 2024-10-01 11:41 | XMS_ITS | Encounter Summary ---
Author Organization [facility] Address [address] [place] [address] Care Team Providers Care Resort Housekeeper Name Role Phone Deborah Guerra MD Primary Care Provider [facility] Abner Dueñas MD Primary Care Provider Un available Encounter Details Date Type Department Care Team Description 12/31/2017 Diamond Selector Report Medical Records [address] [place] [address] Sobia Willoughby Social History Tobacco Use Types [...] on filedocumented in this encounter Care Teams Resort Housekeeper Relationship Specialty Start Date End Date Deborah Guerra MD PCP - General Pediatrics 02/22/15 10/01/19 Abner Arenas MD PCP - General Internal Medicine 10/02/19 documented as of this encounter
--- OUTSIDE RECORDS SUMMARY | 2024-10-01 11:41 | XMS_ITS | Encounter Summary ---
Author Organization [facility] Address [address] [place] [address] Care Team Providers Care Rehabilitation Inspector Name Role Phone Deborah Guerra MD Primary Care Provider Unavailab Abner Dueñas MD Primary Care Provider Un available Reason for Visit * Reason Comments Encounter Details Date Type Department Care Team Description 05/26/2016 Telephone Pediatrics - [place] [address] [place] [address] Ksenia Kerr MD Social History Tobacco Use Types Packs/Day Years Used Date Smoking Tobacco: Never Alcohol Use Standard Drinks/Week Comments Not Asked 0 (1 standard drink = 0.6 oz pur e alcohol) Sex Assigned at Date Recorded Not on file documented as of this encounter Miscellaneous Notes * Telephone Encounter - Ksenia Kerr MD - 05/26/2016 1:03 PM EST Chlamydia POSITIVE on DNA urine probe. Called mother and informed of diagnosis. Patient still reporting dysuria without improvement. Urine culture negative result is final. Mother advised patient maydiscontinue Bactrim antibiotic and Azithromycin sent to pharmacy for 1x 1g dose. Also advised that patient should not have unprotected sex for 1-2 weeks following abx dose to ensure she does not continue to spread infection. Patient has supposedly broken up with partner, still advised to contact him regarding dx since he will need to be treated as well, call back if partner script needed. documented in this encounter Plan of Treatment Not on file documented as of this encounter Visit Diagnoses Not on filedocumented in this encounter Care Teams Rehabilitation Inspector Relationship Specialty Start Date End Date Deborah Guerra MD PCP - General Pediatrics 02/22/15 10/01/19 Abner Arenas MD PCP - General Internal Medicine 10/02/19 documented as of this encounter
--- OUTSIDE RECORDS SUMMARY | 2024-10-01 11:41 | XMS_ITS | Encounter Summary ---
Author Organization [facility] Address [address] [place] [address] Care Team Providers Care Paperhanger And Painter Name Role Phone Deborah Guerra MD Primary Care Provider [facility] Abner Dueñas MD Primary Care Provider Un available Encounter Details Date Type Department Care Team Description 07/03/2017 Trucksmith Report Medical Records [address] [place] [address] Sobia Willoughby Social History Tobacco Use Types [...] on filedocumented in this encounter Care Teams Paperhanger And Painter Relationship Specialty Start Date End Date Deborah Guerra MD PCP - General Pediatrics 02/22/15 10/01/19 Abner Arenas MD PCP - General Internal Medicine 10/02/19 documented as of this encounter
--- OUTSIDE RECORDS SUMMARY | 2024-10-01 11:41 | XMS_ITS | Encounter Summary ---
Author Organization [facility] Address [address] [place] [address] Care Team Providers Care Compensation And Benefits Advisor Name Role Phone Deborah Guerra MD Primary Care Provider [facility] Abenr Dueñas MD Primary Care Provider Un available Encounter Details Date Type Department Care Team Description 05/30/2017 Receipt And Report Clerk Report Medical Records [address] [place] [address] Sobia Willoughby Social History Tobacco Use Types [...]
--- OUTSIDE RECORDS SUMMARY | 2024-10-01 11:41 | XMS_ITS | Encounter Summary ---
Author Organization [facility] Address [address] [place] [address] Care Team Providers Care Transportation Maintenance Supervisor Name Role Phone Deborah Guerra MD Primary Care Provider Unavailab Abnre Dueñas MD Primary Care Provider Un available Encounter Details Date Type Department Care Team Description 10/30/2018 Family Service Assistant Report Medical Records [address] [place] [address] Rehab., Arjun Social History Tobacco Use Types [...] on filedocumented in this encounter Care Teams Transportation Maintenance Supervisor Relationship Specialty Start Date End Date Deborah Guerra MD PCP - General Pediatrics 02/22/15 10/01/19 Abner Arenas MD PCP - General Internal Medicine 10/02/19 documented as of this encounter
--- OUTSIDE RECORDS SUMMARY | 2024-10-01 11:41 | XMS_ITS | Encounter Summary ---
Author Organization [facility] Address [address] [place] [address] Care Team Providers Care Cadd Manager Name Role Phone Deborah Guerra MD Primary Care Provider [facility] Abner Dueñas MD Primary Care Provider Un available Encounter Details Date Type Department Care Team Description 10/11/2017 Bushwalking Guide Report Medical Records [address] [place] [address] Sobia Willoughby Social History Tobacco Use Types [...] on filedocumented in this encounter Care Teams Cadd Manager Relationship Specialty Start Date End Date Deborah Guerra MD PCP - General Pediatrics 02/22/15 10/01/19 Abner Arenas MD PCP - General Internal Medicine 10/02/19 documented as of this encounter
--- OUTSIDE RECORDS SUMMARY | 2024-10-01 11:41 | XMS_ITS | Encounter Summary ---
Author Organization [facility] Address [address] [place] [address] Care Team Providers Care Aerospace Products Sales Engineer Name Role Phone Deborah Guerra MD Primary Care Provider [facility] Abner Dueñas MD Primary Care Provider Un available Encounter Details Date Type Department Care Team Description 05/15/2017 Technical Staff Assistant Report Medical Records [address] [place] [address] Sobia Willoughby Social History Tobacco Use Types [...] on filedocumented in this encounter Care Teams Aerospace Products Sales Engineer Relationship Specialty Start Date End Date Deborah Guerra MD PCP - General Pediatrics 02/22/15 10/01/19 Abner Arenas MD PCP - General Internal Medicine 10/02/19 documented as of this encounter
--- OUTSIDE RECORDS SUMMARY | 2024-10-01 11:41 | XMS_ITS | Encounter Summary ---
Author Organization [facility] Address [address] [place] [address] Care Team Providers Care Conservation Science Officer Name Role Phone Deborah Guerra MD Primary Care Provider Unavailab Abner Dueñas MD Primary Care Provider Un available Reason for Visit * Reason Onset Date Comments Pedi 10/10/2018 ensure prior aut horization Encounter Details Date Type Department Care Team Description 10/10/2018 Telephone Pediatrics - [address] [address] Deborah Guerra MD Pedi (ensure prior authorization ) Social History Tobacco Use Types Packs/Day Years Used Date Smoking Tobacco: Never Smokeless Tobacco: Never Alcohol Use Standard Drinks/Week Comments No 0 (1 standard drink = 0.6 oz pur e alcohol) Sex Assigned at Date Recorded Not on file documented as of this encounter Miscellaneous Notes * Telephone Encounter - Eladia Cruz M.A. - 10/23/2018 1:43 PM EDT Telephone Information: Work Phone Not on file. Mobile Not on file. Called to follow up on ensure prior authorization * Telephone Encounter - Carol Lawler M.A. - 10/22/2018 12:07 PM EDT Additational paper work fill out and fax back over to [place] at [phone]. * Telephone Encounter - Eladia Cruz M.A. - 10/10/2018 2:24 PM EDT Medical necessity letter Ensure script Growth charts Insurance sheet Snapshot Office note All faxed to [facility] for processing * Telephone Encounter - Eladia Cruz M.A. - 10/10/2018 2:02 PM EDT Script for ensure liquid received via fax documented in this encounter Plan of Treatment Not on file documented as of this encounter Visit Diagnoses Not on filedocumented in this encounter Care Teams Conservation Science Officer Relationship Specialty Start Date End Date Deborah Guerra MD PCP - General Pediatrics 02/22/15 10/01/19 Abner Arenas MD PCP - General Internal Medicine 10/02/19 documented as of this encounter
--- OUTSIDE RECORDS SUMMARY | 2024-10-01 11:41 | XMS_ITS | Encounter Summary ---
Author Organization [facility] Address [address] [place] [address] Care Team Providers Care Director Group Sales Name Role Phone Deborah Guerra MD Primary Care Provider Unavail Abner Dueñas MD Primary Care Provider Un available Encounter Details Date Type Department Care Team Description 10/10/2016 Pet Training Instructor Report Medical Records [address] [place] [address] Tanner Quan Social History Tobacco Use Types [...] on filedocumented in this encounter Care Teams Director Group Sales Relationship Specialty Start Date End Date Deborah Guerra MD PCP - General Pediatrics 02/22/15 10/01/19 Abner Arenas MD PCP - General Internal Medicine 10/02/19 documented as of this encounter
--- OUTSIDE RECORDS SUMMARY | 2024-10-01 11:41 | XMS_ITS | Encounter Summary ---
Author Organization [facility] Address [address] [place] [address] Care Team Providers Care Milk Receiver Tank Truck Name Role Phone Deborah Guerra MD Primary Care Provider [facility] Abner Dueñas MD Primary Care Provider Un available Encounter Details Date Type Department Care Team Description 04/23/2017 Staff Combat Information Center Officer Report Medical Records [address] [place] [address] Madison Gaytan MD Social History Tobacco Use [...] on filedocumented in this encounter Care Teams Milk Receiver Tank Truck Relationship Specialty Start Date End Date Deborah Guerra MD PCP - General Pediatrics 02/22/15 10/01/19 Abner Arenas MD PCP - General Internal Medicine 10/02/19 documented as of this encounter
--- OUTSIDE RECORDS SUMMARY | 2024-10-01 11:41 | XMS_ITS | Encounter Summary ---
Author Organization [facility] Address [address] [place] [address] Care Team Providers Care Manager Gas Name Role Phone Deborah Guerra MD Primary Care Provider [facility] Abner Dueñas MD Primary Care Provider Un available Encounter Details Date Type Department Care Team Description 05/13/2019 Diesel Scoop Operator Report Medical Records [address] [place] [address] Kiley Preciado Social History Tobacco Use Types Packs/Day Years [...] on filedocumented in this encounter Care Teams Manager Gas Relationship Specialty Start Date End Date Deborah Guerra MD PCP - General Pediatrics 02/22/15 10/01/19 Abner Arenas MD PCP - General Internal Medicine 10/02/19 documented as of this encounter
--- OUTSIDE RECORDS SUMMARY | 2024-10-01 11:41 | XMS_ITS | Encounter Summary ---
Author Organization [facility] Address [address] [place] [address] Care Team Providers Care Marketing Sales Manager Name Role Phone Deborah Guerra MD Primary Care Provider [facility] Abner Dueñas MD Primary Care Provider Un available Encounter Details Date Type Department Care Team Description 11/29/2016 Gis Consultant Report Medical Records [address] [place] [address] Lizzie Ventura, DO Social History Tobacco Use Types Packs/Day Years Used Date Smoking Tobacco: Never Alcohol Use Standard Drinks/Week Comments Not Asked 0 (1 standard drink = 0.6 oz pur e alcohol) Sex Assigned at Date Recorded Not on file documented as of this encounter Plan of Treatment Not on file documented as of this encounter Visit Diagnoses Not on filedocumented in this encounter Care Teams Marketing Sales Manager Relationship Specialty Start Date End Date Deborah Guerra MD PCP - General Pediatrics 02/22/15 10/01/19 Abner Arenas MD PCP - General Internal Medicine 10/02/19 documented as of this encounter
--- OUTSIDE RECORDS SUMMARY | 2024-10-01 11:41 | XMS_ITS | Encounter Summary ---
Author Organization [facility] Address [address] [place] [address] Care Team Providers Care Structural Analyst Name Role Phone Abner Arenas MD Primary Care Provider Un available Encounter Details Date Type Department Care Team Description 10/04/2020 [facility] Medical Records [address] [place] [address] Christopher Batista MD Social History Tobacco Use Types Packs/Day [...] on filedocumented in this encounter Care Teams Structural Analyst Relationship Specialty Start Date End Date Abner Arenas MD PCP - General Internal Medicine 10/02/19 documented as of this encounter
[2024-10-01 13:06] LABS: MANUAL DIFF FLAG NO
[2024-10-01 13:14] LABS: Basophils Percent Auto 0.3 % (0-2); Eosinophils Percent Auto 0.6 % (0-4); Hematocrit 31.1 % (37.0-47.0); Hemoglobin 10.3 g/dl (12.0-16.0); Imm Gran Abs Auto 0.02 X10*3/uL (0.00-0.03); Imm Gran Pct Auto 0.3 % (0.0-0.4); Lymphocytes Absolute Auto 1.6 X10*3/uL (1.2-4.9); Lymphocytes Percent Auto 24.4 % (20-40); Mean Corpuscular HGB Conc 33.1 g/dl (31.0-35.0); Mean Corpuscular Volume 96.6 fL (80.0-98.0); Mean Platelet Volume 9.6 fL (9.4-12.3); Monocytes Absolute Auto 0.4 X10*3/uL (0.1-1.2); Monocytes Percent Auto 6.7 % (2-11); Neutrophils Absolute Auto 4.4 x10*3/uL (2.0-8.3); Neutrophils Percent Auto 67.7 % (45-73); Platelet Count 154 X10*3/uL (160-400); Red Blood Count 3.22 X10*6/uL (4.20-5.50); Red Cell Distribution Width 12.8 % (11.0-16.0); White Blood Count 6.4 X10*3/uL (4.8-10.8)
[2024-10-01 13:53] LABS: Ferritin 12 ng/mL (10-122); TSH reflex Free T4 0.04 uIU/mL (0.32-4.0)
[2024-10-01 14:01] LABS: Folate 13.9 ng/mL (> or = 4.0); Vitamin B12 313 pg/mL (200-900)
[2024-10-01 14:25] LABS: Free T4 (Free Thyroxine) 1.56 ng/dL (0.71-1.85)
[2024-10-05 15:59] LABS: Vitamin D 25-OH, D2 <4 ng/mL; Vitamin D 25-OH, D3 25 ng/mL; Vitamin D 25-OH, Total 25 ng/mL (30-100)
== END 2024-10-01 10:18 | disposition home or self-care (01) ==
LOC: HO.HMGCLDS 10:17
PROVIDERS: PCP Internal Medicine; Visit Provider Internal Medicine
DX: E03.9 Hypothyroidism, unspecified (principal); D64.9 Anemia, unspecified
CPT/HCPCS: 36415; 82306; 82607; 82728; 82746; 84439; 84443; 85025

== ENCOUNTER 2024-11-13 10:15 | Outpatient (RCR) | payer OTHER, SELFPAY ==
[2024-10-23 12:16] VITALS: BP 94/55; PULSE 78; RESP 20; TEMP 37.1; O2SAT 100
[2024-10-23] MEDS: Iron Sucrose Complex 200 MG in 0.9 % Sodium Chloride 100 ML 220 MG IV (12:25)
[2024-10-30 11:43] VITALS: BP 91/54; PULSE 87; RESP 16; TEMP 37.2; O2SAT 99
[2024-10-30] MEDS: Iron Sucrose Complex 200 MG in 0.9 % Sodium Chloride 100 ML 440 MG IV (11:47)
[2024-11-06 11:10] VITALS: BP 100/50; PULSE 81; RESP 20; TEMP 36.6; O2SAT 100
[2024-11-06] MEDS: Iron Sucrose Complex 200 MG in 0.9 % Sodium Chloride 100 ML 440 MG IV (11:19)
[2024-11-13 11:56] VITALS: BP 91/53; PULSE 94; RESP 16; TEMP 36.8; O2SAT 98
[2024-11-13] MEDS: Iron Sucrose Complex 200 MG in 0.9 % Sodium Chloride 100 ML 440 MG IV (12:11)
[2024-11-13 12:22] LABS: Hematocrit 31.5 % (37.0-47.0); Hemoglobin 10.7 g/dl (12.0-16.0); Mean Corpuscular Hemoglobin 32.5 pg (27.0-33.0); Mean Corpuscular Volume 95.7 fL (80.0-98.0); Mean Platelet Volume 8.7 fL (9.4-12.3); Platelet Count 127 X10*3/uL (160-400); Red Blood Count 3.29 X10*6/uL (4.20-5.50); Red Cell Distribution Width 13.3 % (11.0-16.0)
[2024-11-13 12:56] LABS: Ferritin 287 ng/mL (10-122)
== END 2024-11-13 14:14 | disposition home or self-care (01) ==
LOC: HO.INF 10:15
PROVIDERS: PCP Internal Medicine; Visit Provider Nurse Practitioner Family
DX: D64.9 Anemia, unspecified (principal)
CPT/HCPCS: 36415; 82728; 85027; 96365; J1756

== ENCOUNTER 2024-11-19 08:33 | Outpatient (AMB) | payer OTHER, SELFPAY ==
--- NOTE | 2024-11-19 08:48 | A.OFFPC_ITS ---
Intake Visit Reasons: lab review Allergies doxycycline Allergy (Unknown, Verified 11/18/24 11:11) Nausea and Vomiting Medication List - Last Reconciled 11/19/24 by Chance Lynn MD acetaminophen 500 mg PO ONCE PRN amitriptyline 25 mg PO BEDTIME 90 days [Boost 1 unit PO DAILY] chlorhexidine gluconate 0.12% 0.12 appl PO DAILY cholecalciferol (vitamin D3) (Vitamin D3) 25 mcg PO DAILY cyanocobalamin (vitamin B-12) 1,000 mcg sublingual BID ferrous sulfate 324 mg PO BID 90 days fluoride (sodium) 1.1% (Denta 5000 Plus) 5,000 appl PO DAILY folic acid 0.8 mg PO DAILY levothyroxine 125 mcg PO DAILY multivitamin (One Daily Multivitamin tablet) 1 tab PO DAILY nystatin 1 appl topical DAILY 30 days sumatriptan succinate 50 mg PO ONCE PRN 30 days Symbicort 160-4.5 mcg/actuation (budesonide-formoterol) 1 inh inhalation DAILY 30 days NS Ventolin HFA 90 mcg/actuation (albuterol sulfate) 1 inh inhalation QID PRN 30 days NS Tobacco use date assessed: 08/13/24 Dental Screening Dental Screen Date: 08/13/24 HPI lab review HPI Details History The patient is a 24-year-old female presenting to go over labs her date of delivery is Mar 13 Patient has Iron def anemia, and is currently getting iron infusions Hb is stable last infusion was [place] [facility] her hypothyroid is being managed by her Obgyn her levothyroxine does was recently adjusted as her TSH came low FENG are stable, she has stoped amitrytyline and sumatriptan asthma flares up as she has stopped maintenance inhaler by her self and is only using Ventolin she will resume the symbicort again after consulting with her obgyn - Problem List - Anemia in - Hypothyroidism with Elevated Thyroid S timulating Hormone - FENG - asthma Patient Instructions continue managements as per obgyn and Hematology Review of Systems - General: No fever no chills - Neurological: No headaches no dizziness - Ear nose throat: No sore throat no hearing difficulty no ear pain - Cardiovascular: No syncope, no chest pain, no palpitations - Gastrointestinal: No nausea vomiting or diarrhea - Endocrine: No polyuria polydipsia no heat intolerance - Genitourinary: No dysuria , no blood in urine [facility] Medical History Low platelet count Chronic pain syndrome Bruising, spontaneous Lupus Long-term use of immunosuppressant medication Bilateral chronic knee pain Hypothyroid Asthma Surgical History S/P removal of thyroid nodule Family History Maternal Aunt Breast cancer Paternal Aunt Leukemia Mother No problems noted. Father No problems noted. Paternal Aunt Lupus Social History Household Members: Family Housing: House Alcohol intake: never Patient Tobacco Use Status: Never used Tobacco e-Cigarette/Vaping Use: Never Used Substance Use Type: Marijuana service: No Current occupational status: unemployed Sexual orientation: Straight/Heterosexual Gender identity: Female Cognitive needs: No Hearing needs: No Vision needs: Yes Female Reproductive History Menstrual Age of Menarche: 11 Questionnaire Thrive Questionnaire Date Thrive assessed: 08/13/24 KAROL-7 AMB Questionnaire KAROL-7 Date KAROL - 7 assessed: 08/13/24 Source: Developed by Drs. Luis Manuel Nash, Edith Fan, Jose Doran and colleagues, with an educational ez from [employer]. Physical exam (Primary Care) Tobacco/Smoking Status: Tobacco use Status Tobacco use date assessed 08/13/24 11/19/24 08:54 Patient Tobacco Use Status Never used Tobacco 11/19/24 08:54 e-Cigarette/Vaping Use Never Used 11/19/24 08:54 Thrive Assessment: Date of Thrive Assessment Date Thrive assessed 08/13/24 11/19/24 08:54 Telehealth Telehealth Telehealth Platform: [facility] Location of provider rendering services: practice address Location of patient: address on file Patient Identification confirmed using: Name, : Yes Telehealth method: video Patient verbally consented to treatment: Yes Patient verbally consented to billing insurance company: Yes Patient informed of any privacy concerns related to visit: Yes Coding Level of Care Code Tele Est Pt Level 4 (55966) Diagnoses Other specified hypothyroidism E03.8 Hypothyroidism type: other Other iron deficiency anemia D50.8 Anemia type: iron deficiency Iron deficiency anemia type: other iron deficiency Less than 8 weeks gestation of Z3A.01 Weeks of gestation: less than 8 weeks Intractable migraine without status migrainosus, unspecified migraine type G43.919 Intractability: intractable Migraine type: unspecified Status migrainosus presence: without status migrainosus Moderate persistent asthma without complication J45.40 Asthma complication type: uncomplicated Time Spent (min) 30 Comment labs review, previous notes, face to face, coordination of care Assessment & Plan Assessment & Plan (1) Hypothyroid: Code(s): E03.9 - Hypothyroidism, unspecified Category: Medical Qualifiers: Hypothyroidism type: other Qualified Code(s): E03.8 - Other specified hypothyroidism (2) Anemia: Code(s): D64.9 - Anemia, unspecified Category: Medical Qualifiers: Anemia type: iron deficiency Iron deficiency anemia type: other iron deficiency Qualified Code(s): D50.8 - Other iron deficiency anemias (3) : Code(s): Z34.90 - Encounter for supervision of normal , unspecified, unspecified trimester Category: Medical Qualifiers: Weeks of gestation: less than 8 weeks Qualified Code(s): Z3A.01 - Less than 8 weeks gestation of (4) Migraine headache: Code(s): G43.909 - Migraine, unspecified, not intractable, without status migrainosus Category: Medical Qualifiers: Intractability: intractable Migraine type: unspecified Status migrainosus presence: without status migrainosus Qualified Code(s): G43.919 - Migraine, unspecified, intractable, without status migrainosus (5) Asthma, moderate persistent: Code(s): J45.40 - Moderate persistent asthma, uncomplicated Category: Medical Qualifiers: Asthma complication type: uncomplicated Qualified Code(s): J45.40 - Moderate persistent asthma, uncomplicated Plan History The patient is a 24-year-old female presenting to go over labs her date of delivery is Mar 13 Patient has Iron def anemia, and is currently getting iron infusions Hb is stable last infusion was [place] [facility] [place] hypothyroid is being managed by her Obgyn her levothyroxine does was recently adjusted as her TSH came low FENG are stable, she has stoped amitrytyline and sumatriptan asthma flares up as she has stopped maintenance inhaler by her self and is only using Ventolin she will resume the symbicort again after consulting with her obgyn - Problem List - Anemia in - Hypothyroidism with Elevated Thyroid Stimulating Hormone - FENG - asthma Patient Instructions continue managements as per obgyn and Hematology
--- OUTSIDE RECORDS SUMMARY | 2024-11-19 08:50 | XMS_ITS | Clinical Summary ---
Author Organization [facility] Address [address] [place] [address] Care Team Providers Care Poultry Boner Name Role Phone Abner Arenas MD Primary Care Provider Unava ilable Surgical History Surgery Date Site/Laterality Comments OTHER SURGICAL HISTORY PROCEDURE: DENIES PREVIOUS SURGERY OTHER SURGICAL HISTORY 10/04/2020 PROCEDURE: CT THYROIDECTOMY TOTAL/COMPLETE; COMMENT: total thyroidectomy for Graves [...] 07/30/13 transfer note Patient is to see [facility]. No details available in transfer records. [...] note- patient was to be moving to [place] for a bit until things get better. [...] age to complete this topic Care Teams Poultry Boner Relationship Specialty Start Date End Date Abner Arenas MD PCP - General Internal Medicine 10/02/19
== END 2024-11-19 08:55 | disposition home or self-care (01) ==
LOC: HO.HMCC 08:33
PROVIDERS: PCP Internal Medicine; Visit Provider Internal Medicine
DX: E03.8 Other specified hypothyroidism (principal); D50.8 Other iron deficiency anemias; Z3A.01 Less than 8 weeks gestation of pregnancy; G43.919 Migraine, unspecified, intractable, without status migrainosus; J45.40 Moderate persistent asthma, uncomplicated

== ENCOUNTER → 2024-11-19 08:33 | Outpatient (BNVA) | payer OTHER, SELFPAY | PROVIDERS: PCP Internal Medicine; Visit Provider Internal Medicine | DX: Z13.89 Encounter for screening for other disorder (principal) ==

== ENCOUNTER 2025-01-01 10:00 | Outpatient (RCR) | payer OTHER, SELFPAY ==
[2024-12-11 13:25] VITALS: BP 98/57; PULSE 69; RESP 16; TEMP 36.6; O2SAT 99
[2024-12-18 09:34] VITALS: BP 91/59; PULSE 76; RESP 16; TEMP 36.6; O2SAT 100
[2024-12-24 10:30] VITALS: BP 97/56; PULSE 72; RESP 16; TEMP 36.6; O2SAT 99
[2025-01-01 10:29] VITALS: BP 93/61; PULSE 78; RESP 16; TEMP 36.6; O2SAT 98
[2025-01-01 11:03] LABS: Hematocrit 31.8 % (37.0-47.0); Hemoglobin 10.8 g/dl (12.0-16.0); Mean Corpuscular HGB Conc 34.0 g/dl (31.0-35.0); Mean Corpuscular Hemoglobin 32.6 pg (27.0-33.0); Mean Corpuscular Volume 96.1 fL (80.0-98.0); NRBC Abs Auto 0.020 X10*3/uL (0.0-0.012); NRBC Pct Auto 0.3 /100WBC (0.0-0.2); Platelet Count 121 X10*3/uL (160-400); Red Blood Count 3.31 X10*6/uL (4.20-5.50); White Blood Count 7.7 X10*3/uL (4.8-10.8)
[2025-01-01 11:14] LABS: Ferritin 304 ng/mL (10-122)
== END 2025-01-01 11:33 | disposition home or self-care (01) ==
LOC: HO.INF 10:00
PROVIDERS: PCP Internal Medicine; Visit Provider Nurse Practitioner Family
DX: D64.9 Anemia, unspecified (principal)
CPT/HCPCS: 36415; 82728; 85027; 96365; J1756

== ENCOUNTER 2025-04-07 12:51 | Outpatient (AMB) | payer OTHER, SELFPAY ==
--- NOTE | 2025-04-07 12:52 | A.OFFPC_ITS ---
Vital Signs 04/07/25 12:53 Height 4 ft 11 in Weight 95 lb BMI 19.2 BP 110/68 Blood Pressure Location Lt brachial Position Sitting Pulse 63 Pulse Source Pulse Oximeter Pulse Oximetry (%) 98 Intake Visit Reasons: PE- PHQ-9 needed. Allergies doxycycline Allergy (Unknown, Verified 04/07/25 12:53) Nausea and Vomiting Medication List - Last Reconciled 04/07/25 by Chance Lynn MD acetaminophen 500 mg PO ONCE PRN amitriptyline 25 mg PO BEDTIME 90 days chlorhexidine gluconate 0.12% 0.12 appl PO DAILY cholecalciferol (vitamin D3) (Vitamin D3) 25 mcg PO DAILY fluoride (sodium) 1.1% (Denta 5000 Plus) 5,000 appl PO DAILY levothyroxine 125 mcg PO DAILY sumatriptan succinate 50 mg PO ONCE PRN 30 days Symbicort 160-4.5 mcg/actuation (budesonide-formoterol) 1 inh inhalation DAILY 30 days NS Ventolin HFA 90 mcg/actuation (albuterol sulfate) 1 inh inhalation QID PRN 30 days NS Tobacco use date assessed: 08/13/24 Dental Screening Dental Screen Date: 08/13/24 HPI PE- PHQ-9 needed. HPI0 Details History of Present Illness The patient is a 24-year-old female presenting for a post- physical examination. Hypothyroidism: - The patient takes thyroid medication, and the dose was recently decreased from 125 mcg to 100 mcg of levothyroxine. - This adjustment was made after laborat ory results in November were low. - Her thyroid levels were reported as go od during labor. Anemia: - The patient's lab results from January , showed a hemoglobin of 10.8 g/dL, indicating she is still anemic. - Her iron level is high, so no iron sup plementation is advised at this time. - Her LEATHER STRETCHER plans to check her labs aga in before her next appointment. Headaches: - The patient reports she still has head aches, with the most recent one occurring yesterday. - She has sumatriptan but has been advis ed to avoid taking it while . Pruritic Urticarial Papules and Plaques of (PUPPP): - The patient developed a PUPPP rash tow bob the end of her , which started on her stomach and then spread all over her body after delivery. - She was treated at an urgent care [facility] with a steroid cream and prednisone, and the rash has since resolved. - She now experiences generalized prurit us and has been using hydrocortisone cream on lumpy, itchy areas. Medical History: - Hypothyroidism - Headaches - Anemia - Asthma, on Symbicort - History of pruritic urticarial papules and plaques of (PUPPP) during and after recent Social History: - The patient is post- with a newb orn child. - She is currently . - She has been advised to increase her c aloric intake due to . Health Maintenance - The patient is undergoing a physical e xam for a post- checkup. - She has a follow-up appointment with er LEATHER STRETCHER scheduled for April 16. - She declined vaccination. - She is advised to follow up in three m [facility]. [place] [facility] - The patient has an upcoming appointmen t with her LEATHER STRETCHER, [place], on April 16. Medications - Levothyroxine 100 mcg, dose recently d ecreased from 125 mcg, for hypothyroidism. - Symbicort for asthma. - Vitamin D. - Sumatriptan as needed for headaches, b ut advised to avoid while . - Has stopped taking amitriptyline. Patient Instructions - Continue taking your levothyroxine 100 mcg, Symbicort, and vitamin D as prescribed. - You should stop taking amitriptyline a nd try to avoid taking sumatriptan for headaches because you are . - Do not take any iron supplements at th is time, as your iron levels are high. - To avoid back pain, be sure to rest yo ur back against a support when holding the baby for long periods. - Remember to eat extra food for yoursel f and the baby while you are breastf eeding. - Keep your appointment with your LEATHER STRETCHER on April 16 and get your lab work done beforehand. - Please bring a copy of your lab result s from the LEATHER STRETCHER to your next appointment. - Schedule a follow-up visit in three mo nt. Review of Systems - General: No fever no chills - Neurological: No headaches no dizzin ess - Ear nose throat: No sore throat no hearing difficulty no ear pain - Cardiovascular: No syncope, no chest pain, no palpitations - Gastrointestinal: No nausea vomiting or diarrhea - Endocrine: No polyuria polydipsia no heat intolerance - Genitourinary: No dysuria - Skin: No new complaints Physical Exam General: Cooperative, healthy appearing, comfortable, no acute distress Orientation: Patient oriented x3 Head: Normal to inspection Ears: Within normal limit visually Nose: Normal external nose present Face and sinus: Normal facial exam Eyes: Appearance normal, extraocular movement intact pupils reactive Neck: Normal visual inspection and supple Respiratory: Normal respiratory effort and able to speak in complete sentences. Clear to auscultation, no stridor Cardiovascular: S1 and S2 RRR GI: Normal to inspection. Soft to palpation and nontender Skin: Turgor normal, no acute findings, but patient reports itching and history of PUPPP rash Neuro: Patient oriented x3, motor sensory intact, balance intact, tandem pass Extremities: Normal to inspection, but patient reports occasional back pain due to holding the baby . [facility] Medical History Low platelet count Chronic pain syndrome Bruising, spontaneous Lupus Long-term use of immunosuppressant medication Bilateral chronic knee pain Hypothyroid Asthma Surgical History S/P removal of thyroid nodule Family History Maternal Aunt Breast cancer Paternal Aunt Leukemia Mother No problems noted. Father No problems noted. Paternal Aunt Lupus Social History Household Members: Family Housing: House Alcohol intake: never Patient Tobacco Use Status: Never used Tobacco e-Cigarette/Vaping Use: Never Used Substance Use Type: Marijuana service: No Current occupational status: unemployed Sexual orientation: Straight/Heterosexual Gender identity: Female Cognitive needs: No Hearing needs: No Vision needs: Yes Female Reproductive History Menstrual Age of Menarche: 11 Questionnaire PHQ-9 Over the last 2 weeks, how often have you been bothered by any of the following problems? 1. Little interest or pleasure in doing things: not at all 2. Feeling down, depressed, or hopeless: not at all 3. Trouble falling or staying asleep, or sleeping too much: not at all 4. Feeling tired or having little energy: not at all 5. Poor appetite or overeating: not at all 6. Feeling bad about yourself - or that you are a failure or have let yourself or your family down: not at all 7. Trouble concentrating on things, such as reading the newspaper or watching television: not at all 8. Moving or speaking so slowly that other people could have noticed. Or the opposite - being so fidgety or restless that you have been moving around a lot more than usual: not at all 9. Thoughts that you would be better off or of hurting yourself in some way: not at all Total score: 0 Depression Screening Interpretation: Negative Depression Screening Done: Yes 52204 - PHQ-9 Billing: Yes Source: Developed by Drs. Luis Manuel Nash, Eidth Fan, Jose Doran and colleagues, with an educational ez from [employer] Thrive Questionnaire Date Thrive assessed: 04/07/25 I am a: Patient What is your living situation today?: I have a steady place to live Within the past 12 months, did the food you bought not last and you didn't have the money to get more?: Never true Within the past 12 months, did you worry whether your food would run out before you got money to buy more?: Never true Do you have trouble paying for medicines?: No Do you have trouble getting transportation to medical appointments?: No Do you have trouble paying your heating and electricity bill?: No Do you have trouble taking care of your child, family member or friend?: No Do you have trouble with day-to-day activities such as bathing, preparing meals, shopping, managing finances, etc.?: No Are you currently unemployed and looking for a job?: No Are you interested in more education?: No Please select the resources that you would like help with: None Currently or been in a relationship where the following occur: No concerns reported THRIVE Score: 0 AUDIT C Alcohol Use Questionnaire (AUDIT-C) 1. How often do you have a drink containing alcohol?: Never 3. How often do you have six or more drinks on one occasion?: Never Total Score: 0 Score Reviewed/Action Taken: Yes KAROL-7 AMB Questionnaire KAROL-7 Date KAROL - 7 assessed: 04/07/25 Feeling nervous, anxious, or on edge: 0 = Not at all Not being able to stop or control worryin = Not at all Worrying too much about different things: 0 = Not at all Trouble relaxin = Not at all Being so restless that it is hard to sit still: 0 = Not at all Becoming easily annoyed or irritable: 0 = Not at all Feeling afraid as if something awful might happen: 0 = Not at all Total KAROL-7 score (0-4 normal; 5-9 mild; 10-14 moderate; 15-21 severe): 0 Source: Developed by Drs. Luis Manuel Nash, Edith Fan, Jose Doran and colleagues, with an educational ez from [employer] KAROL-7 Assessment Billing KAROL-7 Assessment Tool: KAROL-7 Assessment 91334 Physical exam (Primary Care) Vital Signs: Last Vital Signs Pulse 63 04/07/25 12:53 BP 110/68 04/07/25 12:53 Pulse Ox 98 04/07/25 12:53 BMI result Body Mass Index 19.2 Tobacco/Smoking Status: Tobacco use Status Tobacco use date assessed 08/13/24 04/07/25 12:54 Patient Tobacco Use Status Never used Tobacco 04/07/25 12:54 e-Cigarette/Vaping Use Never Used 04/07/25 12:54 PHQ-9: PHQ-9 Score PHQ-9: Total score 0 04/07/25 13:13 Depression Screening Interpretation: Negative Thrive Assessment: Date of Thrive Assessment Date Thrive assessed 04/07/25 04/07/25 12:54 Currently or been in a relationship where the following occur: No concerns reported Coding Level of Care Code Est Pt Level 3 (10390) Est Pt Prev Care 18-39y(00265) Diagnoses Encounter for general adult medical examination with abnormal findings Z00.01 Moderate persistent asthma without complication J45.40 Asthma complication type: uncomplicated Intractable migraine without status migrainosus, unspecified migraine type G43.919 Migraine type: unspecified Status migrainosus presence: without status migrainosus Intractability: intractable Chronic bilateral low back pain without sciatica M54.50; G89.29 Back pain laterality: bilateral Sciatica presence: without sciatica Other iron deficiency anemia D50.8 Anemia type: iron deficiency Iron deficiency anemia type: other iron deficiency Other specified hypothyroidism E03.8 Additional Codes KAROL-7 Assessment Billing - KAROL-7 Assessment Tool: KAROL-7 Assessment 46794 ([id number]) PHQ-9 - 88900 - PHQ-9 Billing: Yes ([id number]) Assessment & Plan Assessment & Plan (1) Encounter for general adult medical examination with abnormal findings: Code(s): Z00.01 - Encounter for general adult medical examination with abnormal findings Category: Medical (2) Asthma, moderate persistent: Code(s): J45.40 - Moderate persistent asthma, uncomplicated Category: Medical Qualifiers: Asthma complication type: uncomplicated Qualified Code(s): J45.40 - Moderate persistent asthma, uncomplicated (3) Migraine headache: Code(s): G43.909 - Migraine, unspecified, not intractable, without status migrainosus Category: Medical Qualifiers: Migraine type: unspecified Status migrainosus presence: without status migrainosus Intractability: intractable Qualified Code(s): G43.919 - Migraine, unspecified, intractable, without status migrainosus (4) Chronic lumbar pain: Code(s): M54.50 - Low back pain, unspecified; G89.29 - Other chronic pain Category: Medical Qualifiers: Back pain laterality: bilateral Sciatica presence: without sciatica Qualified Code(s): M54.50 - Low back pain, unspecified; G89.29 - Other chronic pain (5) Anemia: Code(s): D64.9 - Anemia, unspecified Category: Medical Qualifiers: Anemia type: iron deficiency Iron deficiency anemia type: other iron deficiency Qualified Code(s): D50.8 - Other iron deficiency anemias (6) Other specified hypothyroidism: Code(s): E03.8 - Other specified hypothyroidism Category: Medical Plan Hypothyroidism: - The patient takes thyroid medication, and the dose was recently decreased from 125 mcg to 100 mcg of levothyroxine. - This adjustment was made after laboratory results in November were low. - Her thyroid levels were reported as good during labor. Anemia: - The patient's lab results from January , showed a hemoglobin of 10.8 g/dL, indicating she is still anemic. - Her iron level is high, so no iron supplementation is advised at this time. - Her LEATHER STRETCHER plans to check her labs again before her next appointment. Headaches: - The patient reports she still has headaches, with the most recent one occurring yesterday. - She has sumatriptan but has been advised to avoid taking it while . Pruritic Urticarial Papules and Plaques of (PUPPP): - The patient developed a PUPPP rash toward the end of her , which started on her stomach and then spread all over her body after delivery. - She was treated at an urgent care center with a steroid cream and prednisone, and the rash has since resolved. - She now experiences generalized pruritus and has been using hydrocortisone cream on lumpy, itchy areas. Medical History: - Hypothyroidism - Headaches - Anemia - Asthma, on Symbicort - History of pruritic urticarial papules and plaques of (PUPPP) during and after recent Social History: - The patient is post- with a child. - She is currently . - She has been advised to increase her caloric intake due to . Health Maintenance - The patient is undergoing a physical exam for a post- checkup. - She has a follow-up appointment with her LEATHER STRETCHER scheduled for April 16. - She declined vaccination. - She is advised to follow up in three months. [place] of [facility] - The patient has an upcoming appointment with her LEATHER STRETCHER, [place], on April 16. Medications - Levothyroxine 100 mcg, dose recently decreased from 125 mcg, for hypothyroidism. - Symbicort for asthma. - Vitamin D. - Sumatriptan as needed for headaches, but advised to avoid while . - Has stopped taking amitriptyline. Patient Instructions - Continue taking your levothyroxine 100 mcg, Symbicort, and vitamin D as prescribed. - You should stop taking amitriptyline and try to avoid taking sumatriptan for headaches because you are . - Do not take any iron supplements at this time, as your iron levels are high. - To avoid back pain, be sure to rest your back against a support when holding the baby for long periods. - Remember to eat extra food for yourself and the baby while you are . - Keep your appointment with your LEATHER STRETCHER on April 16 and get your lab work done beforehand. - Please bring a copy of your lab results from the LEATHER STRETCHER to your next appointment. - Schedule a follow-up visit in three months. .
[2025-04-07 12:53] VITALS: BP 110/68; PULSE 63; O2SAT 98; BMI 19.2
--- OUTSIDE RECORDS SUMMARY | 2025-04-07 15:32 | XMS_ITS | Clinical Summary ---
Author Organization [facility] Address [address] [place], [place] [id number] Phone Care Team Providers Care Timing Inspector Name Role Phone Chance Lynn MD Primary Care Provider [phone] Allergies Active Allergy Reactions Criticality Noted Date Comments Doxycycline Hyclate 06/12/2022 Medications fluconazole (DIFLUCAN) 150 MG tablet 04/04/20 Active medroxyPROGEST ERone (DEPO-PROVERA) 150 mg/mL injection INJECT 1ML INTRAMUSCULARLY ONCE EVERY 12 WEEKS 03/21/20 22 Active MICONAZOLE-7 2 % vaginal cream APPLY 1 APPLICATION VAGINALLY AT BEDTIME FOR 7 DAYS 04/05/20 22 Active albuterol 2.5 mg /3 mL (0.083 %) nebulizer solution Take 2.5 mg by nebulization every 6 (six) hours as needed. Active budesonide-for moterol (SYMBICORT) 160-4.5 mcg/actuation inhaler Inhale 2 puffs into the lungs 2 (two) times a day. Active levothyroxine sodium (LEVOTHYROXINE ORAL) Take by mouth every morning. Active Social History Tobacco Use Types Packs/Day Years Used Date Smoking Tobacco: Never Tobacco Cessation:Counseling Given: Not Answered Alcohol Use Standard Drinks/Week Comments Not Currently 0 (1 standard drink = 0.6 oz pur e alcohol) Education Answer Date Recorded Are you interested in more education? Not on anuj e 09/29/2022 Are you concerned about learning? Not on file 09/29/2022 No 09/29/2022 No 09/29/2022 Digital Access Answer Date Recorded No 10/30/2022 No 10/30/2022 Reliable internet access at home? Not on file 10/30/2022 Device with a working camera? Not on file Intimate Partner Violence Answer Date R ecorded Are you denied basic needs s uch as food, clothing, or medical care? No 06/12/2022 In the past 12 months have y ou been in a relationship with a person who hurts, threatens, or tries to control you? No 06/12/2022 Are you denied basic needs s uch as food, clothing, or medical care? No 06/12/2022 In the past 12 months have y ou been in a relationship with a person who hurts, threatens, or tries to control you? No 06/12/2022 Comments Unknown Sex and Gender Information Value Date Recorded Sex Assigned at Female 06/12/2022 11:20 PM EST Legal Sex Female 11:10 PM EST Gender Identity Female 06/12/2022 11:20 PM EST Sexual Orientation Choose not to disclose 2022 11:20 PM EST Last Filed Vital Signs Vital Sign Reading Time Taken Comments Blood Pressure 91/60 06/13/2022 4:05 AM EST Pulse 65 06/13/2022 4:05 AM EST Temperature 36.6 C (97.9 F) 06/13/2022 4:05 AM EST Respiratory Rate 12 06/13/2022 4:05 AM EST Oxygen Saturation 100% 06/13/2022 4:05 AM EST Inhaled Oxygen Concentration - - Weight 41.7 kg (92 lb) 06/12/2022 11:23 PM EST Height 149.9 cm (4' 11 ) 06/12/2022 11:23 PM EST Body Mass Index 18.58 06/12/2022 11:23 PM EST Plan of Treatment Not on file Medical Devices Not on file Insurance ACO ACO [place] [place] [address] [address] [address] ACO ACO Care Teams Timing Inspector Relationship Specialty Start Date End Date Chance Lynn MD [address] [place] [address] PCP - General Internal Medicine 06/12/22 Additional Source Comments The information contained in this document represents components of the legal health record. It is not the complete legal health record.[facility]
--- OUTSIDE RECORDS SUMMARY | 2025-04-07 15:32 | XMS_ITS | Encounter Summary ---
Author Organization [facility] Address [address] [place] [id number] Phone Care Team Providers Care Hemodialysis Rn Name Role Phone Chance Lynn MD Primary Care Provider [phone] Encounter Details Date Type Department Care Team (Late st Contact Info) Description 06/13/2022 Procedure [facility], [facility] Scan - [address] [address] Social History Tobacco Use Types Packs/Day Years Used Date Smoking Tobacco: Never Alcohol Use Standard Drinks/Week Comments Not Currently 0 (1 standard drink = 0.6 oz pur e alcohol) Intimate Partner Violence Answer Date R ecorded [...] not to disclose 2022 11:20 PM EST documented as of this encounter Plan of Treatment Not on file documented as of this encounter Visit Diagnoses Not on filedocumented in this encounter Care Teams Hemodialysis Rn Relationship Specialty Start Date End Date Chance Lynn MD [facility] [place] [address] PCP - General Internal Medicine 06/12/22 documented as of this encounter Additional Source Comments The information contained in this document represents components of the legal health record. It is not the complete legal health record.[facility]
== END 2025-04-07 13:16 | disposition home or self-care (01) ==
LOC: HO.HMCC 12:51
PROVIDERS: PCP Internal Medicine; Visit Provider Internal Medicine
DX: Z00.01 Encounter for general adult medical examination with abnormal findings (principal); J45.40 Moderate persistent asthma, uncomplicated; G43.919 Migraine, unspecified, intractable, without status migrainosus; M54.50 Low back pain, unspecified; G89.29 Other chronic pain; D50.8 Other iron deficiency anemias; E03.8 Other specified hypothyroidism

== ENCOUNTER → 2025-04-07 12:51 | Outpatient (BNVA) | payer OTHER, SELFPAY | PROVIDERS: PCP Internal Medicine; Visit Provider Internal Medicine | DX: Z00.01 Encounter for general adult medical examination with abnormal findings (principal); E03.9 Hypothyroidism, unspecified; D64.9 Anemia, unspecified; J45.40 Moderate persistent asthma, uncomplicated; G43.919 Migraine, unspecified, intractable, without status migrainosus; M54.50 Low back pain, unspecified; G89.29 Other chronic pain; D50.8 Other iron deficiency anemias; E03.8 Other specified hypothyroidism | CPT/HCPCS: 96127; 99395 ==